=== PATIENT | male | born 2000 | race Caucasian/White ===

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

== ENCOUNTER 2021-01-24 15:31 | Emergency (ER) | payer MEDICAID, SELFPAY ==
[2021-01-24] VITALS (7 sets, daily range): BP systolic 131; BP diastolic 87; PULSE 100; RESP 15–16; TEMP 36.6; O2SAT 98; BMI 20.7
--- NOTE | 2021-01-24 15:51 | EDS_ITS ---
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 Patient is a very limited informant. He does not want to answer questions. As I asked him questions he states I prefer not to answer sure. I did speak to the deputy who brought the patient in. Reportedly family called him said the patient was making statements about particularly harming himself and/or animals. Patient not cooperative. Prior similar symptoms: No Recent Illness/Hospitalization: No PFSH PFSH Home Medications NK 07/12/18 [History Last Taken Unknown] Allergy/AdvReac Type Severity Reaction Status Date / Time No Known Allergies Allergy Verified 07/12/18 13:54 Social History Smoking Status: Never smoker ROS ROS ED ROS Narrative Limited history from the patient but he denies. Review of Systems ROS Unobtainable: Denies due to encephalopathy Constitutional Constitutional ED: Denies fever(s) Eyes Eyes: Denies change in vision ENT ENT ED: Denies ear pain or sore throat Cardiovascular Cardiovascular: Denies chest pain Respiratory/Chest Respiratory/Chest: Denies dyspnea Gastrointestinal Gastrointestinal: Denies abdominal pain Genitourinary Genitourinary ED: Denies dysuria Musculoskeletal Musculoskeletal: Denies myalgias Integumentary Denies rash Neurologic Neurologic: Denies headache(s) Psychiatric Psychiatric: Denies depression Endocrine Endocrinology: Denies polyuria Hematologic/Lymphatic Hematologic/Lymphatic: Denies easy bruising Allergic/Immunologic Allergic/Immunologic ED: Denies urticaria EXAM Physical Exam Narrative Exam Narrative: Young male no acute distress. H EENT exam unremarkable atraumatic. Neck nontender no lymphadenopathy. No trauma. Lungs clear to auscultation. Heart regular rhythm no murmur. Chest wall nontender. Abdomen soft nontender. Patient moving all 4 extremities. No deformity. No edema. Back nontender. Neurologically is awake. He has no obvious neurologic findings. He has somewhat reluctant to be examined. Is somewhat uncooperative. Const Vital Signs: 01/24/21 15:31 01/24/21 16:31 01/24/21 17:00 Temperature 97.9 F Temperature Source Temporal Respiratory Rate 15 16 Positive well nourished and well developed; Negative for obese, cachectic, contractures or unkempt General Appearance ED: well developed and NAD; Negative for unkempt, cachectic, contractures or pallor Nutritional Appearance: Negative for cachectic or obese HEENT Reports moist mucous membranes normocephalic and atraumatic; Negative for trauma or tenderness Eyes PERRL and EOMs intact bilaterally Neck no lymphadenopathy, supple and no JVD General: Negative for tenderness Resp normal respiratory effort and clear to auscultation bilaterally Auscultation: Negative for rales, rhonchi or wheezes Cardio S1 normal heart sound, S2 normal heart sound and no murmurs Rate: regular rate Rhythm: regular rhythm GI non-tender, non-distended and no masses Inspection: Negative for abdominal distention Auscultation: normoactive bowel sounds Palpation: soft; Negative for tender or guarding Back/Spine no CVA tenderness General Back: Negative for CVA tenderness Cervical Spine: Negative for cervical spine tenderness Extremity normal to inspection General Extremety ED: Negative for edema or tenderness General Extremity: Negative for edema Neuro Neuro Narrative: Limited due to the patient is not very cooperative with exam and would not answer questions but I find any obvious neurological deficits. Sensorium / Orientation: alert and oriented to person Psych mental status grossly normal, speech normal and activity/motor behavior normal; Negative for cooperative or affect normal Appearance: grossly normal, appropriate and well kempt; Negative for unkempt, disheveled, bizarre or intubated Skin General Skin Exam: Negative for jaundice or pallor Lesions: no lesions Rashes: no rashes MDM MDM MDM Narrative Medical decision making narrative: 20-year-old male reported psychiatric history not taking his medications. Currently uncooperative. Does not want to answer questions. (ED mental health work-up and evaluation. Patient is to be treated with Geodon for the nurses to draw blood. Repeat exam unchanged at 5:35 PM. smokehouse worker spoke to the patient's mother who is his power of supervisor mold construction and wants him admitted. She states has been off his medications and she is concerned about his wellbeing. Lab Data Attestation: I reviewed the patient's lab results. Lab results narrative: CBC normal white count of 5. Hemoglobin 15. Tox screen negative. Chemistries and alcohol and Covid are pending. This to be checked out to the oncoming physician. Labs: Laboratory Results - last 24 hr 01/24/21 01/24/21 16:05 17:15 WBC 5.8 RBC 5.66 Hgb 15.6 Hct 46.3 MCV 81.8 MCH 27.6 MCHC 33.7 RDW Std Deviation 38.1 RDW Coeff of Shola 12.7 Plt Count 107 L MPV 12.0 Immature Gran % (Auto) 0.300 Neut % (Auto) 82.4 H Lymph % (Auto) 10.7 L Maury % (Auto) 6.4 Eos % (Auto) 0.0 Baso % (Auto) 0.2 Absolute Neuts (auto) 4.8 Absolute Lymphs (auto) 0.62 L Nucleated RBC % 0 Urine Opiates Screen NEGATIVE Urine Methadone Screen NEGATIVE Ur Barbiturates Screen NEGATIVE Ur Phencyclidine Scrn NEGATIVE Ur Amphetamines Screen NEGATIVE U Methamphetamin-MDMA NEGATIVE U Benzodiazepines Scrn NEGATIVE Urine Cocaine Screen NEGATIVE U Cannabinoids Screen NEGATIVE Ur Drug Screen Comment Discharge Plan Triage Chief Complaint: Mental Health ED Provider: Vlad Mckeon Dx/Rx/DC Orders Clinical Impression: Schizophrenia, Medical non-compliance Prescriptions: No Action NK RF: 0 Primary Care Provider: Maverick Murray Referrals: Maverick Murray MD [Primary Care Provider] - Disposition Disposition: Psychiatric Hospital or Unit
[2021-01-24] MEDS: Ziprasidone IM 20 MG/ML VIAL IM (16:01)
--- NOTE | 2021-01-24 16:30 | CM.ED ---
SOCIAL WORK ASSESSMENT Referral Source: Dr. Mckeon Reason for Consult: Mental Health Evaluation Chief Compliant: Patient presents to [facility] ER [place] by law enforcement. Patient with history of schizophrenia, off medications, and religiously preoccupied. Patient will not answer questions. Marital/Social History: Single, mother-Rachel Sandoval is patient?s legal guardian. 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 Patient was receiving a 3-month injection up until July when he did not attend appointment per mother. Mother states patient has been refusing to see psychiatrist. Triggers/Stressors: Non-compliance with medications Coping Skills: None Abuse Issues: Patient denies emotional, physical, and sexual abuse. Substance Abuse History: Patient denies any history of substance abuse. Risk to Self/Others: Suicidal- Mother reports patient has voiced ?wanting to be with God.? Patient was asking to talk and ?see? mom today. Mother reports that she is currently out of state and will be returning tomorrow. Mother states this is not normal behavior for patient as he normally is a loner and ?stays in his room.? Patient was also trying to ?get the dogs out of the home.? Mother does not feel safe with patient returning home. Homicidal- Unknown. Per mother and aunt, patient was making comments that ?I have to be nice to the dogs.? Mental Status Exam: Orientation- A&OX3 Memory: fair Appearance/General Behavior: disheveled Mood/Affect: anxious, bizarre, flat Communication Pattern: uncooperative, does not wish to answer most questions Thought Process: paranoid, preoccupied Judgement: poor Insight: poor Assessment: Attempted to complete assessment with patient. Patient limited informant. Patient with bizarre behavior and stating, ?it?s a God thing.? Patient currently denies any suicidal or homicidal ideation. Patient asking if able to leave. Education provided on [place]. Call to patient?s mother and face to face with patient?s Aunt Debbie in office. Mother reports patient had a ?break down? and was diagnosed with schizophrenia. Mother states patient was treated with injections until July when he no showed to appointment. Patient has reported does not need medication and that ?medications are sorcery.? Aunt and mother report patient with decreased appetite. Mother is patient?s legal guardian and aunt brought in forms. Mother believes patient would benefit from stabilization and does not feel comfortable with patient returning home at this time. Mother states patient last inpatient psych hospitalization was 2 years ago. Collaboration with Dr. Mckeon. Plan for inpatient psych. This worker to facilitate placement. Plan: Referral to inpatient psych Patricia West MSW, MANAGEMENT PLANNER
[2021-01-24 16:35] LABS: Amphetamine Urine VISTA NEGATIVE (<1000 ng/mL); Barbiturate Urine VISTA NEGATIVE (< 200 ng/mL); Benzodiazepine Urine VISTA NEGATIVE (< 200 ng/mL); Cocaine Urine VISTA NEGATIVE (< 300 ng/mL); Ecstacy Urine VISTA NEGATIVE (< 500 ng/mL); Methadone Urine VISTA NEGATIVE (< 300 ng/mL); PCP Urine VISTA NEGATIVE (< 25 ng/mL); THC Urine VISTA NEGATIVE (< 50 ng/mL); Vista UDS pH Range 5
[2021-01-24 17:29] LABS: Absolute Lymphocyte Count 0.62 X10^3/uL (0.83-4.51); Absolute Neutrophil Count 4.8 X10^3/uL (2.0-7.7); Basophil# 0.01 X10^3/uL; Basophil% 0.2 % (0-1); Hematocrit 46.3 % (40-54); Hemoglobin 15.6 g/dL (13.0-16.5); Lymphocyte # 0.62 X10^3/ul (0.83-4.51); Lymphocyte % 10.7 % (19-41); Mean Corp Hgb Conc 33.7 g/dL (32-36); Mean Corpuscular Hgb 27.6 pg (27.0-32.0); Mean Corpuscular Volume 81.8 fL (80-94); Monocyte# 0.37 X10^3/uL; Monocyte% 6.4 % (0-10); NRBC Flagged by Analyzer 0 % (0-5); Neutrophil % 82.4 % (47-70); Platelet Count 107 K/mm3 (150-450); RBC Distribution Width CV 12.7 % (11.6-14.6); RBC Distribution Width SD 38.1 fl (35.1-43.9); Red Blood Count 5.66 M/mm3 (4.6-6.2); White Blood Count 5.8 K/mm3 (4.4-11.0)
[2021-01-24 17:42] LABS: Anion Gap 6 (5-15); BUN 12 mg/dL (7-18); BUN/Creat Ratio 11.5 RATIO (10-20); Calcium,Total 9.5 mg/dL (8.5-10.1); Chloride 106 mmol/L (98-107); Creatinine, Serum 1.04 mg/dL (0.70-1.30); EST Glomerular Filtration Rate 96 mL/min (>60); Est Glom Filt Rate - Afr Amer 116 mL/min (>60); Estimated Creatinine Clearance 100.92 ml/min; Glucose 118 mg/dL (74-106); Sodium Level 139 mmol/L (136-145)
--- NOTE | 2021-01-24 18:56 | CM.ED ---
SOCIAL WORK Referral called to [facility] per mother's request. They do not have bed available for patient. Discussed options with mother. Referral faxed and called to both [facility] and [place] at this time. Pending review. Patricia West, RETAIL STOCKER, RADIOLOGY CLERK
--- NOTE | 2021-01-24 20:23 | CM.ED ---
SOCIAL WORK Call from [facility]. Patient accepted by Dr. Kern to the [facility] Unit. Nurse to call report to [phone]. [place] on chart to be sent with patient. [facility] to set up transport. Patient and family updated. Plan: [facility]. Call to [facility] to update placement has been obtained for patient. Patricia obrien, MEDICAL INSURANCE COLLECTOR, FITNESS CLUB MANAGER
== END 2021-01-24 21:25 ==
PROVIDERS: Emergency Provider Emergency Medicine; PCP Nurse Practitioner Family
DX: F20.9 Schizophrenia, unspecified (principal); Z91.19 Patient's noncompliance with other medical treatment and regimen; Z20.822 Contact with and (suspected) exposure to COVID-19
CPT/HCPCS: 80048; 80307; 82077; 85025; 87426; 96372; 99285; J3486

== ENCOUNTER 2023-04-15 22:02 | Emergency (ER) | payer MEDICARE, MEDICAID, SELFPAY ==
[2023-04-15 22:02] VITALS: BP 123/87; PULSE 130; RESP 15; TEMP 37.1; O2SAT 99
--- NOTE | 2023-04-15 22:13 | EX.ED.VIS.PS ---
HPI HPI - Psych History of Present Illness Chief Complaint: Mental Health PFSH PFS Home Medications NK 07/12/18 [History Last Taken Unknown] Allergy/AdvReac Type Severity Reaction Status Date / Time No Known Allergies Allergy Verified 04/15/23 22:07 Social History Smoking Status: Never smoker EXAM Physical Exam Const Vital Signs: 04/15/23 22:02 04/15/23 23:02 04/16/23 01:02 Temperature 98.8 F Temperature Source Temporal Pulse Rate 130 H 62 Respiratory Rate 15 16 13 Blood Pressure 123/87 H 120/65 Blood Pressure Mean 99 83 Pulse Ox 99 99 Oxygen Delivery Method Room Air Room Air Room Air MDM MDM MDM Narrative Medical decision making narrative: HISTORY OF PRESENT ILLNESS: 22-year-old male history of schizophrenia presents with concern for medication noncompliance and abnormal behavior. Per the patient's caregiver patient was standing out in the cold, locked himself in his room behaving abnormally. This was concerning. The patient and caregiver further state patient has not been on medication since December. He has been on Invega and olanzapine. Per the patient's mother has been seeing and hearing things however he always denies any symptoms. There has been no report of suicidal ideation or homicidal ideation. They state has been no physical illnesses. They state the patient may need to be admitted because they do not feel safe with him at home given his history of schizophrenia, med noncompliance and concern that he may hurt himself. REVIEW OF SYSTEMS: Pertinent positives: None Pertinent negatives: SI, HI, auditory or visual hallucinations PHYSICAL EXAM: Nursing triage notes reviewed, Vital signs reviewed Constitutional: please see mdm HENT: MMM Eyes: Pupils equal round and reactive to light, Extraocular muscles intact Neck: No stridor, no JVD, full neck ROM Lungs: Clear to auscultation, No wheezing or rales. No increased work of breathing, no conversational dyspnea, no accessory muscle use, no nasal flaring. No respiratory distress noted Heart: Regular rate and rhythm, No murmurs, No rubs and No gallops, 2+ distal pulses (radial, femoral, posterior tibial) in all extremities Abdomen: Soft, there is no tenderness, rigidity, rebound or guarding, no obvious peritoneal signs, no palpable pulsatile abdominal masses, no auscultated abdominal bruit : No CVAT Extremities: No edema Neuro: No focal neurological deficits, cranial nerves II through XII intact, 5/5 strength in all extremities. Intact sensation to light touch in all extremities, 2+ reflexes bilateral patella tendons. Normal gait. No ataxia. Skin: No rash or lesions noted Psych: Normal affect, responding to internal stimuli, MEDICAL DECISION MAKING: Chief Complaint: Medication noncompliance, abnormal behavior, history of schizophrenia External records reviewed: Past ED visit reviewed: Last ED visit in December 2020 for schizophrenia and med noncompliance. Patient was admitted after this visit. Factors affecting care: schizophrenia Social determinants of health: History of mental health disorder History obtained from others: Patient's caregiver Consults: Behavioral social MDM Narrative: Patient was initially tachycardic otherwise hemodynamically stable afebrile and nontoxic-appearing. Patient had abnormal affect, responding internal stimuli, Decompensated. Patient was evaluated by behavioral social work who agreed the patient need to be placed given decompensated schizophrenia, concern for failure to thrive weight loss and danger to himself and possibly other people. Patient is awaiting placement. Signed out awaiting placement. The patient and/or family, caregivers express understanding. The patient and/or family, caregivers agrees with the plan. Shared decision making: I will have a discussion with the patient and or visitors regarding risk/benefits of further testing or admission. They will be made aware of of the risk/benefits inherent in this decision they will be given the opportunity to voice understanding. Total critical care time today provided was at least 0 minutes. This excludes separately billable procedures. Critical care time (if documented) is secondary to the patient having high probability of clinically significant/life threatening deterioration in the patient's condition which required my urgent intervention. Impression: 1. Decompensated schizophrenia 2. Abnormal behavior 3. Medication noncompliance Dispo: Likely admit to [facility] Lab Data Labs: Laboratory Results - last 24 hr 04/15/23 04/15/23 22:51 23:13 WBC 5.2 RBC 5.58 Hgb 15.5 Hct 47.7 MCV 85.5 MCH 27.8 MCHC 32.5 RDW Std Deviation 41.4 RDW Coeff of Shola 13.3 Plt Count 141 L MPV 11.4 Immature Gran % (Auto) 0.200 Neut % (Auto) 67.5 Lymph % (Auto) 21.0 [place] % (Auto) 10.5 H Eos % (Auto) 0.2 Baso % (Auto) 0.6 Absolute Neuts (auto) 3.5 Absolute Lymphs (auto) 1.08 Nucleated RBC % 0 Sodium 139 Potassium 3.5 Chloride 107 Carbon Dioxide 24.0 Anion Gap 8 BUN 9 Creatinine 0.92 Est GFR (MDRD) Af Amer 130 Est GFR (MDRD) Non-Af 108 BUN/Creatinine Ratio 9.8 L Glucose 123 H Calcium 9.5 Urine Opiates Screen NEGATIVE Urine Methadone Screen NEGATIVE Ur Barbiturates Screen NEGATIVE Ur Phencyclidine Scrn NEGATIVE Ur Amphetamines Screen NEGATIVE MDMA (Ecstasy) Screen NEGATIVE U Benzodiazepines Scrn NEGATIVE Urine Cocaine Screen NEGATIVE U Cannabinoids Screen NEGATIVE Ur Drug Screen Comment Ethyl Alcohol < 3.0 Discharge Plan Triage Chief Complaint: Mental Health ED Provider: Bassam Stanton Dx/Rx/DC Orders Prescriptions: No Action NK Primary Care Provider: Brandie Rico NP Referrals: Jerzy Child NP, [facility] [Non-Staff] -
--- NOTE | 2023-04-15 22:55 | EKG12_ITS ---
Test Reason : [facility] [place] Blood Pressure : / mmHG Vent. Rate : 089 BPM Atrial Rate : 089 BPM P-R Int : 162 ms QRS Dur : 096 ms QT Int : 350 ms P-R-T Axes : 074 086 046 degrees QTc Int : 425 ms Normal sinus rhythm with sinus arrhythmia Normal ECG Confirmed by SUAD ORANTES, CHRISTI ([id number]), story editor YANETH RODGERS ([id number]) on 04/23/2023 10:46:53 AM Referred By: JONAH Confirmed By:CHRISTI BORJAS MD
[2023-04-15 23:01] LABS: Absolute Lymphocyte Count 1.08 X10^3/uL (0.83-4.51); Absolute Neutrophil Count 3.5 X10^3/uL (2.0-7.7); Basophil# 0.03 X10^3/uL; Basophil% 0.6 % (0-1); Eosinophil# 0.01 X10^3/uL; Eosinophils% 0.2 % (0-5); Hematocrit 47.7 % (40-54); Hemoglobin 15.5 g/dL (13.0-16.5); Lymphocyte # 1.08 X10^3/ul (0.83-4.51); Mean Corp Hgb Conc 32.5 g/dL (32-36); Mean Corpuscular Hgb 27.8 pg (27.0-32.0); Mean Corpuscular Volume 85.5 fL (80-94); Mean Platelet Vol. 11.4 fl (6.2-12.0); Monocyte# 0.54 X10^3/uL; Monocyte% 10.5 % (0-10); NRBC Flagged by Analyzer 0 % (0-5); Neutrophil # 3.48 X10^3/uL (2.7-7.7); Neutrophil % 67.5 % (47-70); Platelet Count 141 K/mm3 (150-450); RBC Distribution Width CV 13.3 % (11.6-14.6); RBC Distribution Width SD 41.4 fl (35.1-43.9); Red Blood Count 5.58 M/mm3 (4.6-6.2); White Blood Count 5.2 K/mm3 (4.4-11.0)
[2023-04-15 23:02] VITALS: RESP 16
[2023-04-15 23:14] LABS: Alcohol, Blood (Medical)-Serum < 3.0 mg/dL
[2023-04-15 23:16] LABS: Anion Gap 8 (5-15); BUN 9 mg/dL (7-18); BUN/Creat Ratio 9.8 RATIO (10-20); Calcium,Total 9.5 mg/dL (8.5-10.1); Chloride 107 mmol/L (98-107); Creatinine, Serum 0.92 mg/dL (0.70-1.30); EST Glomerular Filtration Rate 108 mL/min (>60); Est Glom Filt Rate - Afr Amer 130 mL/min (>60); Glucose 123 mg/dL (74-106); Potassium 3.5 mmol/L (3.5-5.1); Sodium Level 139 mmol/L (136-145)
[2023-04-15 23:44] LABS: Amphetamine Urine VISTA NEGATIVE (<1000 ng/mL); Barbiturate Urine VISTA NEGATIVE (< 200 ng/mL); Benzodiazepine Urine VISTA NEGATIVE (< 200 ng/mL); Cocaine Urine VISTA NEGATIVE (< 300 ng/mL); Ecstacy Urine VISTA NEGATIVE (< 500 ng/mL); Methadone Urine VISTA NEGATIVE (< 300 ng/mL); PCP Urine VISTA NEGATIVE (< 25 ng/mL); THC Urine VISTA NEGATIVE (< 50 ng/mL); Vista UDS pH Range 4
[2023-04-16 01:02] VITALS: BP 120/65; PULSE 62; RESP 13; O2SAT 99
--- NOTE | 2023-04-16 06:51 | ED.RN ---
PT ACCEPTED BY DR.OKAN TAPIA [place] [id number] [id number] [phone]
[2023-04-16 08:30] VITALS: BP 114/76; PULSE 81; RESP 14; O2SAT 99; BMI 23.6
== END 2023-04-16 09:16 ==
PROVIDERS: Emergency Provider Emergency Medicine; PCP Internal Medicine; Visit Provider Emergency Medicine
DX: F20.9 Schizophrenia, unspecified (principal); Z91.148 Patient's other noncompliance with medication regimen for other reason; Z79.899 Other long term (current) drug therapy
CPT/HCPCS: 80048; 80307; 82077; 85025; 93005; 99284

== ENCOUNTER 2023-07-12 16:49 | Emergency (ER) | payer MEDICARE, MEDICAID, SELFPAY ==
[2023-07-12 16:50] VITALS: BP 121/82; PULSE 82; RESP 14; TEMP 36.8; O2SAT 99; BMI 21.8
--- OUTSIDE RECORDS SUMMARY | 2023-07-12 17:47 | XMS RPT_ITS | CCD ---
Author Name Unknown Address [address] [place] [address] Organization [facility] Care Team Providers Care Film Casting Operator Name Role Phone Maverick Murray Primary Care Provider [phone] Christi Perez Admitting Unavailable Christi Perez Attending Unavailable PROVIDER, UNKNOWN Referring Unavailable No, PCP Primary Care Unavailable Lucisu Ponce . Attending Unavailable IZZY ARAMBULA Attending Unavailable IZZY ARAMBULA Primary Care Unavailable IZZY ARAMBULA Admitting Unavailable IZZY ARAMBULA Attending Unavailable IZZY ARAMBULA Primary Care Unavailable IZZY ARAMBULA Admitting Unavailable Conrad García MD Primary Care Provider [id number] [phone] THERESA DAY Attending Unavailab CONRAD Penaloza Primary Care Unavailable CHARY STEPHENSON Consulting UnavailCONRAD Sanderson Primary Care Unavailable GEHLOT, UPENDER Consulting Unavailable GEHLOT, UPENDER Admitting Unavailable OLGAOTJACKIEENDER Attending Unavailable CHRISTI PEREZ Admitting Unavailable CHRISTI PEREZ Attending Unavailable CONRAD GARCÍA Primary Care Unavailable TIFFANY DUBON Consulting Unavailable David Sears MD Primary Care Provider Conrad García MD Primary Care Provider [id number] [phone] David Sears MD Primary Care Provider Conrad García MD Primary Care Provider [id number] [phone] Unavailable Primary Care Provider UnavailCONRAD Sanderson Primary Care Unavailable CHRISTI PEREZ Attending Unavailable CONRAD GARCÍA Primary Care Unavailable CHRISTI PEREZ Attending Unavailable MAGALY ZAMAN Attending Unavailab CONRAD Penaloza Primary Care Unavailable CHRISTI PEREZ Attending Unavailable CONRAD GARCÍA Primary Care Unavailable CHRISTI PEREZ Attending Unavailable CONRAD GARCÍA Primary Care Unavailable KAITY COTTON Attending Unavailable RAKAN MCCARTY Primary Care Unavailable Allergies Allergy Classification Reported Allergen(s) Allergy Type Date of Onset Reaction(s) Facility (4 sources) Acetaminophen; Translations: [ACETAMINOPHEN] Drug Allergy [address] [facility] (7 sources) Seasonal allergy; Translations: [SEASONAL ALLERGIES] Propensity to adverse reactions 9 [facility] Work Phone: Medications Current Medications Medication Drug Class(es) Dates Sig (Normalized) Sig (Original) OLANZapine 10 mg oral tablet (20 sources) Atypical Antipsychotic Start: 05-19-2023 End: 07-10-2023 take 1 tablet by mouth once daily OLANZapine (ZYPREXA) 10 MG tablet Indications: Paranoid schizophrenia (HCC) Take 1 (one) tablet (10 mg total) by mouth nightly . 30 tablet 2 07/10/2023 Active Completed/Discontinued Medications Medication Drug Class(es) Dates Sig (Normalized) Sig (Original) aluminum hydroxide 40 mg/ml / magnesium hydroxide 40 mg/ml / simethicone 4 mg/ml oral suspension (1 source) Start: 07-31-2021 End: 08-14-2021 take 30 mL by mouth every four hours as needed aluminum-magnesium hydroxide-simethico ne (MAALOX PLUS) 200-200-20 mg/5 mL suspension 30 mL 2 ml benztropine mesylate 1 mg/ml injection (1 source) Anticholinergic, Antihistamine Start: 07-31-2021 End: 08-14-2021 inject 2 mg by intramuscular injection every twenty-four hours as needed benztropine (COGENTIN) injection 2 mg diphenhydrAMINE (2 sources) Histamine-1 Receptor Antagonist Start: 08-01-2021 End: 08-01-2021 diphenhydrAMINE (BENADRYL) injection 50 mg Problems Active Problems Problem Classification Problem Date Documented Date Episodic/Chronic Administrative/social admission (4 sources) Patient encounter status; Translations: [Persons encountering health services in other specified circumstances] Episodic Anxiety disorders (1 source) Anxiety disorder; Translations: [Anxiety disorder, unspecified] Chronic Coagulation and hemorrhagic disorders (7 sources) Platelet count below reference range; Translations: [Thrombocytopenia, unspecified] 01-04-2019 Chronic Disorders usually diagnosed in infancy, childhood, or adolescence (7 sources) Attention deficit hyperactivity disorder, predominantly inattentive type; Translations: [Other specified behavioral and emotional disorders with onset usually occurring in childhood and adolescence] Onset: 02-27-2010 02-27-2010 Chronic Immunizations and screening for infectious disease (7 sources) Encounter for observation for suspected exposure to other biological agents ruled out; Translations: [Contact with and (suspected) exposure to other viral communicable diseases] Onset: 03-24-2020 Episodic Mood disorders (7 sources) Depressive disorder; Translations: [Depression] Onset: 01-21-2017 01-21-2017 Chronic Other nervous system disorders (1 source) Other disturbances of smell and taste; Translations: [Other disturbances of smell and taste] Onset: 04-12-2020 Episodic Schizophrenia and other psychotic disorders (20 sources) Schizophrenia in remission; 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] Onset: 08-12-2018 08-12-2018 Chronic Unclassified (1 source) COVID-19; Translations: [COVID-19] Onset: 03-24-2020 Unclassified (2 sources) Medication Management Onset: 10-25-2022 Past or Other Problems Problem Classification Problem Date Documented Da te Episodic/Chronic Residual codes; unclassified (6 sources) Influenza vaccination declined; Translations: [Immunization not carried out because of patient refusal] Onset: 06-10-2017 06-10-2017 Episodic Results Test Name Value Interpretation Reference Range Facil ity Vital Signs Date Time Vital Sign Value Performing Clinician Faci lity 01-30-2023 12:52-0400 Body height 177.8 cm Christi Perez MD Work Phone: [facility] 01-30-2023 12:52-0400 Body mass index (BMI) [Ratio] 21.24 kg/m2 Christi Perez MD Work Phone: [facility] 01-30-2023 12:52-0400 Body weight 67.13 kg Christi Perez MD Work Phone: [facility] 01-30-2023 12:52-0400 Diastolic blood pressure 89 mm[Hg] Christi Perez MD Work Phone: [facility] 01-30-2023 12:52-0400 Heart rate 101 /min Christi Perez MD Work Phone: [facility] 01-30-2023 12:52-0400 Respiratory rate 16 /min Christi Perez MD Work Phone: [facility] 01-30-2023 12:52-0400 SaO2% (BldA) [Mass fraction] 94 % Christi Perez MD Work Phone: [facility] 01-30-2023 12:52-0400 Systolic blood pressure 143 mm[Hg] Christi Perez MD Work Phone: [facility] 06-17-2022 07:39-0500 Body height 176.5 cm Kaity Jacky SENIOR MANAGER ASSET PROTECTION.REFRIGERATING TECHNICIAN Work Phone: [facility] 06-17-2022 07:39-0500 Body weight 70.31 kg Kaity Jacky SENIOR MANAGER ASSET PROTECTION.REFRIGERATING TECHNICIAN Work Phone: [facility] 06-17-2022 07:39-0500 Diastolic blood pressure 54 mm[Hg] Kaity Jacky SENIOR MANAGER ASSET PROTECTION.REFRIGERATING TECHNICIAN Work Phone: [facility] 06-17-2022 07:39-0500 Heart rate 88 /min Kaity Jacky SENIOR MANAGER ASSET PROTECTION.REFRIGERATING TECHNICIAN Work Phone: [facility] 06-17-2022 07:39-0500 SaO2% (BldA) [Mass fraction] 98 % Kaity Jacky SENIOR MANAGER ASSET PROTECTION.REFRIGERATING TECHNICIAN Work Phone: [facility] 06-17-2022 07:39-0500 Systolic blood pressure 110 mm[Hg] Kaity Jacky SENIOR MANAGER ASSET PROTECTION.REFRIGERATING TECHNICIAN Work Phone: [facility] 05-02-2022 15:00-0500 Body height 177.8 cm Christi Perez MD Work Phone: [facility] 05-02-2022 15:00-0500 Body mass index (BMI) [Ratio] 22.81 kg/m2 Christi Perez MD Work Phone: [facility] 05-02-2022 15:00-0500 Body weight 72.12 kg Christi Perez MD Work Phone: [facility] 05-02-2022 15:00-0500 Diastolic blood pressure 81 mm[Hg] Christi Perez MD Work Phone: [facility] 05-02-2022 15:00-0500 Heart rate 101 /min Christi Perez MD Work Phone: [facility] 05-02-2022 15:00-0500 Respiratory rate 16 /min Christi Perez MD Work Phone: [facility] 05-02-2022 15:00-0500 SaO2% (BldA) [Mass fraction] 96 % Christi Perez MD Work Phone: [facility] 05-02-2022 15:00-0500 Systolic blood pressure 119 mm[Hg] Christi Perez MD Work Phone: [facility] 10-31-2021 15:07-0400 Body height 177.8 cm Christi Perez MD Work Phone: [facility] 10-31-2021 15:07-0400 Body mass index (BMI) [Ratio] 22.81 kg/m2 Christi Perez MD Work Phone: [facility] 10-31-2021 15:07-0400 Body weight 72.12 kg Christi Perez MD Work Phone: [facility] 10-31-2021 15:07-0400 Diastolic blood pressure 73 mm[Hg] Christi Perez MD Work Phone: [facility] 10-31-2021 15:07-0400 Heart rate 97 /min Christi Perez MD Work Phone: [facility] 10-31-2021 15:07-0400 Respiratory rate 16 /min Christi Perez MD Work Phone: [facility] 10-31-2021 15:07-0400 SaO2% (BldA) [Mass fraction] 94 % Christi Perez MD Work Phone: [facility] 10-31-2021 15:07-0400 Systolic blood pressure 114 mm[Hg] Christi Perez MD Work Phone: [facility] 08-14-2021 08:07-0400 Body temperature 97.5 [degF] Christi Perez MD Work Phone: [facility] 08-14-2021 08:07-0400 Diastolic blood pressure 76 mm[Hg] Christi Perez MD Work Phone: [facility] 08-14-2021 08:07-0400 Heart rate 87 /min Christi Perez MD Work Phone: [facility] 08-14-2021 08:07-0400 Respiratory rate 16 /min Christi Perez MD Work Phone: [facility] 08-14-2021 08:07-0400 SaO2% (BldA) [Mass fraction] 98 % Christi Perez MD Work Phone: [facility] 08-14-2021 08:07-0400 Systolic blood pressure 111 mm[Hg] Christi Perez MD Work Phone: [facility] 07-31-2021 18:23-0500 Body height 177.8 cm Christi Perez MD Work Phone: [facility] 07-31-2021 18:23-0500 Body mass index (BMI) [Ratio] 22.9 kg/m2 Christi Perez MD Work Phone: [facility] 07-31-2021 18:23-0500 Body weight 72.4 kg Christi Perez MD Work Phone: [facility] 07-11-2021 14:55-0500 Diastolic blood pressure 83 mm[Hg] Christi Perez MD Work Phone: [facility] 07-11-2021 14:55-0500 Heart rate 111 /min Christi Perez MD Work Phone: [facility] 07-11-2021 14:55-0500 Respiratory rate 16 /min Christi Perez MD Work Phone: [facility] 07-11-2021 14:55-0500 SaO2% (BldA) [Mass fraction] 8 % Christi Perez MD Work Phone: [facility] 07-11-2021 14:55-0500 Systolic blood pressure 134 mm[Hg] Christi Perez MD Work Phone: [facility] 05-03-2021 16:02-0500 Body height 175.3 cm Christi Perez MD Work Phone: [facility] 05-03-2021 16:02-0500 Body mass index (BMI) [Ratio] 19.64 kg/m2 Christi Perez MD Work Phone: [facility] 05-03-2021 16:02-0500 Body weight 60.33 kg Christi Perez MD Work Phone: [facility] 05-03-2021 16:02-0500 Diastolic blood pressure 86 mm[Hg] Christi Perez MD Work Phone: [facility] 05-03-2021 16:02-0500 Heart rate 112 /min Christi Perez MD Work Phone: [facility] 05-03-2021 16:02-0500 Respiratory rate 16 /min Christi Perez MD Work Phone: [facility] 05-03-2021 16:02-0500 SaO2% (BldA) [Mass fraction] 98 % Christi Perez MD Work Phone: [facility] 05-03-2021 16:02-0500 Systolic blood pressure 135 mm[Hg] Christi Perez MD Work Phone: [facility] 02-21-2021 14:20-0400 Body height 175.3 cm Christi Perez MD Work Phone: [facility] 02-21-2021 14:20-0400 Body mass index (BMI) [Ratio] 19.64 kg/m2 Christi Perez MD Work Phone: [facility] 02-21-2021 14:20-0400 Body weight 60.33 kg Christi Perez MD Work Phone: [facility] 02-21-2021 14:20-0400 Diastolic blood pressure 76 mm[Hg] Christi Perez MD Work Phone: [facility] 02-21-2021 14:20-0400 Heart rate 85 /min Christi Perez MD Work Phone: [facility] 02-21-2021 14:20-0400 Respiratory rate 16 /min Christi Perez MD Work Phone: [facility] 02-21-2021 14:20-0400 SaO2% (BldA) [Mass fraction] 98 % Christi Perez MD Work Phone: [facility] 02-21-2021 14:20-0400 Systolic blood pressure 117 mm[Hg] Christi Perez MD Work Phone: [facility] 08-12-2018 13:08-0400 BMI (Body Mass Index) 19.37 kg/m2 Christi Perez [facility] 08-12-2018 13:08-0400 Body Temperature 98.8 [degF] Christi Perez [facility] 08-12-2018 13:08-0400 BP Diastolic 86 mm[Hg] Christi Perez [facility] 08-12-2018 13:08-0400 BP Systolic 130 mm[Hg] Christi Perez [facility] 08-12-2018 13:08-0400 Height 177.[address] [facility] 08-12-2018 13:08-0400 Pulse (Heart Rate) 87 /min Christi Perez [facility] 08-12-2018 13:08-0400 Respiratory Rate 16 /min Christi Perez [facility] 08-12-2018 13:08-0400 Weight 61.[address] [facility] Encounters Encounter Date Encounter Type Care Provider Facility Start: 07-10-2023 End: 07-10-2023 Office outpatient visit 25 minutes Magaly Zaman CNP Work Phone: [facility] Procedures Date Procedure Procedure Detail Performing Clinician Start: 05-19-2023 Adult depression screening assessment Magaly Zaman CNP Work Phone: Start: 07-31-2021 Adult depression screening assessment Perlita Fernandez MA Start: 02-02-2021 Adult depression screening assessment Christi Perez MD Work Phone: Start: 01-04-2019 Adult depression screening assessment Mi Nurse Work Phone: Plan of Treatment Date Care Activity Detail Author Start: 05-19-2024 Depression screening using PHQ-9 (Patient Health Questionnaire 9) score Depression Screening (PHQ-2/9) [facility] Start: 10-08-2023 End: 10-08-2023 Patient encounter procedure 10/08/2023 1:30 PM EDT Office Visit [facility] [address] [place] [address] Magaly Zaman, ROSA [address] [place] [address] [facility] Start: 09-17-2023 End: 09-17-2023 Patient encounter procedure 09/17/2023 3:00 PM EDT Office Visit [facility] [address] [place] [address] Christi Perez MD [id number] [facility] Start: 04-14-2023 End: 04-14-2023 Patient encounter procedure 04/14/2023 1:00 PM EST Office Visit [facility] [address] [place] [address] Christi Perez MD [address] [address] [facility] Start: 01-31-2023 Influenza vaccination Sequential Influenza Vaccine (#1) [facility] Start: 11-29-2022 Influenza vaccination INFLUENZA (#1) [facility] Immunizations Immunization Date Immunization Notes Care Provider Fa cili 12-27-2015 meningococcal polysaccharide (groups A, C, Y and W-135) diphtheria toxoid conjugate vaccine (MCV4P) Ma Nurse Work Phone: [facility] Work Phone: 01-18-2014 human papilloma viru s vaccine, quadrivalent Mi Nurse Work Phone: [facility] 07-26-2013 hepatitis A vaccine, unspecified formulation Mi Nurse Work Phone: [facility] Work Phone: 07-26-2013 human papilloma viru s vaccine, quadrivalent Mi Nurse Work Phone: [facility] Work Phone: 01-02-2013 human papilloma viru s vaccine, quadrivalent Mi Nurse Work Phone: [facility] Work Phone: 08-15-2012 hepatitis A vaccine, unspecified formulation Ma Nurse Work Phone: [facility] 06-16-2012 influenza virus vacc ine, live, attenuated, for intranasal use Mi Nurse Work Phone: [facility] 05-08-2011 influenza virus vacc ine, live, attenuated, for intranasal use Mi Nurse Work Phone: [facility] 05-08-2011 varicella virus vaccine Mi N urse Work Phone: [facility] 10-26-2010 Meningococcal, MCV4, unspecified conjugate formulation(groups A, C, Y and W-135) Ma Nurse Work Phone: [facility] Work Phone: 10-26-2010 tetanus toxoid, redu bashir diphtheria toxoid, and acellular pertussis vaccine, adsorbed Mi Nurse Work Phone: [facility] Work Phone: 08-31-2004 diphtheria, tetanus toxoids and acellular pertussis vaccine Mi Nurse Work Phone: [facility] Work Phone: 08-31-2004 measles, mumps and rubella virus vaccine Ma Nurse Work Phone: [facility] Work Phone: 08-31-2004 poliovirus vaccine, inactivated Mi Nurse Work Phone: [facility] Work Phone: 03-02-2001 diphtheria, tetanus toxoids and acellular pertussis vaccine Ma Nurse Work Phone: [facility] Work Phone: 03-02-2001 haemophilus influenz ae type b conjugate and Hepatitis B vaccine Kaity Cotton SENIOR MANAGER ASSET PROTECTION.REFRIGERATING TECHNICIAN Work Phone: [facility] Work Phone: 03-02-2001 haemophilus influenz ae type b vaccine, HbOC conjugate Ma Nurse Work Phone: [facility] Work Phone: 03-02-2001 hepatitis B vaccine, pediatric or pediatric/adolescent dosage Ma Nurse Work Phone: [facility] Work Phone: 01-19-2001 measles, mumps and rubella virus vaccine Ma Nurse Work Phone: [facility] Work Phone: 01-19-2001 varicella virus vaccine Ma N shebae Work Phone: [facility] Work Phone: 06-13-2000 diphtheria, tetanus toxoids and acellular pertussis vaccine Ma Nurse Work Phone: [facility] Work Phone: 06-13-2000 poliovirus vaccine, inactivated Ma Nurse Work Phone: [facility] Work Phone: 02-27-2000 diphtheria, tetanus toxoids and acellular pertussis vaccine Ma Nurse Work Phone: [facility] Work Phone: 02-27-2000 haemophilus influenz ae type b conjugate and Hepatitis B vaccine Kaity Cotton SENIOR MANAGER ASSET PROTECTION.REFRIGERATING TECHNICIAN Work Phone: [facility] Work Phone: 02-27-2000 haemophilus influenz ae type b vaccine, HbOC conjugate Ma Nurse Work Phone: [facility] Work Phone: 02-27-2000 hepatitis B vaccine, pediatric or pediatric/adolescent dosage Mi Nurse Work Phone: [facility] Work Phone: 02-27-2000 poliovirus vaccine, inactivated Ma Nurse Work Phone: [facility] Work Phone: 1999 diphtheria, tetanus toxoids and acellular pertussis vaccine Mi Nurse Work Phone: [facility] Work Phone: 1999 haemophilus influenz ae type b conjugate and Hepatitis B vaccine Kaity Cotton SENIOR MANAGER ASSET PROTECTION.REFRIGERATING TECHNICIAN Work Phone: [facility] Work Phone: 1999 haemophilus influenz ae type b vaccine, HbOC conjugate Ma Nurse Work Phone: [facility] Work Phone: 1999 hepatitis B vaccine, pediatric or pediatric/adolescent dosage Ma Nurse Work Phone: [facility] Work Phone: 1999 poliovirus vaccine, inactivated Mi Nurse Work Phone: [facility] Work Phone: Payers Date Payer Category Payer Medicare MEDICARE MEDICAR E PART A & B [id number] 2022-Present [phone] [employer] [id number] PART A CLAIMS [address] [address] [place] [address] [id number] 2022 Medicare [id number] 2022 Medicaid [id number] 2020 Medicaid [id number] 2018 Medicaid [id number] 2018 Medicaid [id number] 2018 Unknown [employer] [place] [employer] PREFERRED xxxxxxxxx 2018-Present xxxxxxxxx [id number] 1999 Unknown [id number] 668 1999 Unknown [id number] 651 1999 Unknown [id number] 651 1999 Unknown [id number] 900 1999 Unknown [id number] [id number] 903 1999 Unknown [id number] [id number] 903 1999 Unknown [id number] 903 1999 Unknown [id number] 903 1999 Unknown [id number]. 903 1999 Unknown [id number] [id number] 903 1999 Unknown [id number] 903 Private Health Insurance Unknown [id number] Unknown Unknown [id number] Social History Date Type Detail Facility Start: 08-12-2018 End: 10-25-2022 Tobacco smoking status NHIS Never smoker [facility] Start: 08-12-2018 End: 06-11-2022 History SDOH Alcohol Frequency 1 [facility] Start: 2000 Sex Assigned At Not on file [facility] Start: 08-12-2018 End: 05-26-2023 Tobacco use and exposure Smokeless tobacco non-user [facility] Start: 02-21-2021 End: 07-11-2023 Alcohol intake Lifetime non-drinker (finding) [facility] Start: 07-20-2021 End: 05-02-2022 Exposure to SARS-CoV-2 (event) Not sure [facility] Start: 08-12-2018 End: 05-19-2023 Cigarette pack-years [facility] Start: 06-11-2022 History SDOH Alcohol Std Drinks 0 [facility] Start: 06-11-2022 History SDOH Housing Unable to Pay 3 [facility] Start: 08-12-2018 End: 05-19-2023 Alcohol Use Disorder Identification Test - Consumption [AUDIT-C] [facility] Start: 07-31-2021 Frequency of Alcohol Consumption Never [facility] Start: 08-21-2018 Gender identity Identifies as male gender (finding) [facility] Start: 07-31-2021 Sexual orientation Heterosexual (fin ding) [facility] Clinical Notes 02-16-2021 to 07-11-2023 Magaly Zaman, [facility] - 07/11/2023 9:03 AM Christi Lacy MD - 01/30/2023 2:51 PM Nahun Perez MD - 07/26/2022 4:24 PM Frankie Cotton APRN.[facility] - 06/17/2022 7:41 AM EST Santana Date & Type Note Facility 07-11-2023 History of Present illness Narrative [facility] Outpatient Progress Note Patient Name: Leon Atkinson MR #: [id number] : 2000 Chief Complaint: Medication and symptom review/management Interval History: 07/11/2023 Patient presents for follow up exam. I discussed risks, benefits and alternatives of a telephone visit telemedicine consultation with the patient (and any accompanying persons) including the risks that the patient's personal health details and medical records will be discussed over real-time, synchronous, interactive audio technology, the visit will not be recorded without the express consent of both the provider and the patient, and that there are inherent diagnostic limitations compared to [id number] evaluations. We elected to proceed with the telephone visit telemedicine consultation. Patient is engaged and cooperative during conversation. Mother also present for the visit today. States he is tolerating the medication well. Mother states that he has been stable but he does continue to question reality often. Patient states that he is just curious about things and asks her. Mother states that he didn't want to attend the family vacation this year because the outer negron was demonic. Patient states he didn't say this. He chooses not to go on the trip as he doesn't think it would be that fun for him and he wouldn't be able to read his Bible daily. He would like to stay with his uncle while his family is gone. Patient denies any hallucination/delusions. He denies any notable side effects of the medication. Mother agrees with this, and states the medication is better for him, and he is no longer zombie like or overly fatigued. He is now more alert and active, but questioning more which is challenging at times. Denies any ongoing drug or alcohol abuse. Previous Visit: 05/19/[address] Perez's presents with his mother for follow up exam. He was recently admitted to [facility] from 04/16/23-05/09/2023. Seen by Dr. Kehinde Foster. Mother states he is doing well since his discharge to home. She states he is tolerating the medication well and was restarted on monthly Invega injections. He had second dose this am. 234 mg Invega Sustena. He is also taking olanzapine 10 mg once daily versus 5 mg BID. Symptoms are stable and have not worsened. Mother denies any recent mood changes or fluctuations. He denies any delusions or paranoia. He is now able to be with the family more and being more social. Sleeping well at this time. Appetite has improved. Mother is pleased with how well he is doing. States he cut his hair which was very matted from not poor ADL's. Denies any side effects of the medication. Current Medications: Outpatient Medications Prior to Visit Medication Sig Dispense Refill paliperidone palmitate (Invega Sustenna) 234 mg/1.5 mL Syrg Inject 1.5 mL (234 mg total) into the shoulder, thigh, or buttocks every 28 days . 1.5 mL 1 OLANZapine (ZYPREXA) 10 MG tablet Take 1 (one) tablet (10 mg total) by mouth nightly . 30 tablet 2 paliperidone palm, 3-month, (Invega Trinza) 546 mg/1.75 mL Syrg Inject 1.75 mL (546 mg total) into the shoulder, thigh, or buttocks every 3 (three) months . (Patient not taking: Reported on 05/19/2023 .) 1.75 mL 2 No facility-administered medications prior to visit. Psychiatric ROS: Negative unless noted above. Physical Exam: General: Alert and oriented to person, place, and time. Is in no acute distress. Well developed, hydrated, and nourished. Appears stated age. Skin: Appropriate color for ethnicity. Head: The head is normocephalic and atraumatic. Eyes: PERRLA Neck: Supple Respiratory: Respirations are non labored. Musculoskeletal: Active ROM in all four extremities. Mental Status Evaluation: General Appearance & Behavior: age appropiate and defensive Grooming & Hygiene: street clothes Psychomotor Activity: no psychomotor abnormalities or muscle atrophy noted Speech: normal rate, rhythym, volume, and spontaneity Thought Associations: Intact Content of Thought: religiously preoccupied Mood: okay Affect: flat Insight: poor Judgment: poor Memory: intact recent and remote Language: fluent Assessment and Plan/Recommendations Diagnoses/Treatment Plan: Diagnoses and all orders for this visit: Paranoid schizophrenia (HCC) - paliperidone palm, 3 month, (Invega Trinza) 546 mg/1.75 mL Syrg; Inject 1.75 mL (546 mg total) into the shoulder, thigh, or buttocks every 3 (three) months . - OLANZapine (ZYPREXA) 10 MG tablet; Take 1 (one) tablet (10 mg total) by mouth nightly . Will start Trinza in July. Mother in agreement that he will resume appointments with Dr. Perez as he was previously, due to severity of patient symptoms. Pharmacological management: Alternative medication plans were discussed with the patient/guardian. All side effects or potential adverse effects were discussed with the patient/guardian. Parent/guardian consented to medication initiation or continuation of the following: Education: Continue medication as prescribed. Please report any side effects or intolerability of the medication. Report any new or worsening symptoms 05/19/2023 9:00 AM ROD-7 ROD-7 Score 0 07/31/2021 6:29 PM 05/19/2023 9:00 AM PHQ-9 PHQ-9 Total Score 4 0 Follow up in: 09/17/2023 Treatment options and alternatives reviewed with patient. Risks, benefits, side effects of all psychiatric medications discussed with patient and informed consent obtained. All questions were answered. Magaly Zaman CNP 07/11/2023 9:17 AM documented in this encounter [facility] 06-18-2023 Note HNO ID: [id number] Author: KAITY COTTON APRN.ROSA Service: ? Author Type: Nurse Practitioner Type: Progress Notes Filed: 06/18/2023 11:39 Note Text: CHIEF COMPLAINT: Patient presents with: Physical HISTORY: Leon Atkinson is a 22 year old male who presents 06/18/2023 for his Yearly Physical Exam. They are here today for a wellness exam. Accompanied by his mother. Routine wellness, last well visit 06/17/2022. History significant for ADD, depression, schizophrenia, thrombocytopenia. Seeing Dr. Perez/Marlene with [facility] psychiatry. Hospital in April, had stopped medications for a time. Other Providers: Psychiatry. Depression Screen Q1: Over the past two weeks, have you felt down, depressed or hopeless? No Q2: Over the past two weeks, have you felt little interest or pleasure in doing things? No Home status: Lives at home with mom Current job: Looking for a job Current exercise habits: Regular exercise Dietary habits: Tries to eat healthy, protein, weight has been stable Hearing difficulties: no Tobacco: no ETOH: no Family History Cancer Colon: Grandpa on Dads side Prostate: no Past Medical History: PAST MEDICAL HISTORY Diagnosis Date ADD (attention deficit disorder) Depressed mood 05/07/2016 Depression 01/21/2017 Febrile seizure (HCC) age 5 Hyperlipidemia Schizophrenia (HCC) Dr. Hernandez Thrombocytopenia (HCC) Family Medical History: FAMILY HISTORY Problem Relation Age of Onset Hypertension Mother No Known Problems Sister Diabetes Maternal Grandmother Hypertension Maternal Grandmother Heart Maternal Grandmother Hypertension Maternal Grandfather Diabetes Maternal Grandfather Cancer Paternal Grandfather GI Colon Cancer Paternal Grandfather Social History: Social History Tobacco Use Smoking status: Never Smokeless tobacco: Never Substance Use Topics Alcohol use: Never Drug use: Never Allergies: ALLERGIES Allergen Reactions Seasonal Allergies Medications: Current Outpatient Medications Medication Sig paliperidone palmitate (INVEGA SUSTENNA) 234 mg/1.5 mL syrg injection Inject 234 mg intramuscularly. OLANZapine orally disintegrating (ZYPREXA ZYDIS) 5 mg disintegrating tablet Take 10 mg by mouth daily at bedtime. No current facility-administered medications for this visit. Chronic Problem List: ACTIVE PROBLEM LIST Thrombocytopenia (Hcc) Paranoid Schizophrenia (Hcc) Comment: Dr. Hernandez Influenza Vaccine Refused - 06/10/2017 Depression - 01/21/2017 Add (Attention Deficit Disorder) - 02/27/2010 Review of Systems Review of Systems Constitutional: Negative. Respiratory: Negative. Cardiovascular: Negative. OBJECTIVE BP 120/54 Pulse 101 Ht 5' 9.25 (1.76m) Wt 156 lb (70.8kg) SpO2 98% BMI 22.87 kg/(m2). Physical Exam Vitals and nursing note reviewed. Constitutional: General: He is awake. He is not in acute distress. Appearance: Normal appearance. He is well-developed and well-groomed. He is not ill-appearing, toxic-appearing or diaphoretic. HENT: Head: Normocephalic. Right Ear: External ear normal. Left Ear: External ear normal. Nose: Nose normal. Eyes: General: Vision grossly intact. Conjunctiva/sclera: Conjunctivae normal. Pupils: Pupils are equal, round, and reactive to light. Neck: Vascular: No JVD. Trachea: Trachea normal. Cardiovascular: Rate and Rhythm: Normal rate and regular rhythm. Pulses: Normal pulses. Heart sounds: Normal heart sounds. No murmur heard. Pulmonary: Effort: Pulmonary effort is normal. No accessory muscle usage, prolonged expiration or respiratory distress. Breath sounds: Normal breath sounds. Musculoskeletal: Cervical back: Neck supple. Skin: General: Skin is warm and dry. Capillary Refill: Capillary refill takes less than 2 seconds. Neurological: General: No focal deficit present. Mental Status: He is alert and oriented to person, place, and time. Mental status is at baseline. Psychiatric: Attention and Perception: Attention and perception normal. Mood and Affect: Mood normal. Affect is flat. Speech: Speech normal. Behavior: Behavior is withdrawn. Behavior is cooperative. Thought Content: Thought content normal. Cognition and Memory: Cognition and memory normal. Judgment: Judgment normal. ASSESSMENT/PLAN: 1. Wellness examination - ICD9: V70.0, ICD10: Z00.00 (primary diagnosis) - Counseled on healthy diet and regular exercise - Depression screening tool completed and reviewed with patient. Based on score and interview, patient is already diagnosed with depression and recommended continuing current plan of care. - Follow up for annual exam in one year 2. Paranoid schizophrenia (HCC) - ICD9: 295.30, ICD10: F20.0 Following with psychiatry. 3. Thrombocytopenia (HCC) - ICD9: 287.5, ICD10: D69.6 Update CBC 4. Attention deficit disorder, unspecified hyperactivity presence - ICD9: 314. (more content not included)... [facility] 01-30-2023 History of Present illness Narrative BEHAVIORAL HEALTH PSYCHIATRIC PROGRESS NOTE 01/30/2023 Leon Atkinson, a 22 y.o. male, for follow-up visit for schizophrenia. Patient is referred by Conrad García MD . Interval History: Leon has just this week decided that pharmaceuticals are sorcery, according to the Bible, and that he will be in sin and tormented by demons if he takes his medications. He has stopped the oral olanzapine. Next Trinza injection is due next Friday. Mom and I both sternly warned him that he was putting himself in danger of deterioration, at the very least. We reminded him of what happened last time he stopped medications. He remains adamant. He denies intent to harm himself or anyone else. Mom is guardian. PFSH: Past Medical History: Diagnosis Date ADHD Depression Schizophrenia (HCC) Schizophrenia, first episode, currently in partial remission (HCC) 08/12/2018 Social History Substance and Sexual Activity Alcohol Use Never Social History Substance and Sexual Activity Drug Use Never Social History Substance and Sexual Activity Sexual Activity Not Currently Partners: Male Family History Problem Relation Age of Onset Personality disorder Father Diabetes Maternal Grandmother The following portions of the patient's history were reviewed and updated as appropriate: allergies, current medications, past family history, past medical history, past social history, past surgical history, and problem list. Review of Systems All other systems reviewed and are negative. Physical Exam PSYCHIATRIC EXAM: Grooming & Hygiene: disheveled and appears older than stated age General Behavior: defensive Psychomotor Activity: no psychomotor abnormalities Speech: WNL Flow to Thought: concrete Thought Associations: Intact Content of Thought: delusions of persecutory, grandiose, and mu-ism Mood: I don't know Affect: flat Insight: poor Judgment: poor Orientation: alert and oriented to person, place, time Memory: Recent intact Attention: intact Concentration: intact Language: intact Fund of Knowledge: intact Labs/ Diagnostic Imaging reviewed: no new data Response to Medication: Poor not taking ASSESSMENT AND PLAN: A: Schizophrenia with break-through delusions causing non-compliance with medications P: Hospitalize when necessary Follow-up plan was discussed with patient. Impression/ Plan: No Changes Wyocena I: Chronic Paranoid Schizophrenia Wyocena II: No diagnosis Wyocena III: see problem list Wyocena IV: other psychosocial or environmental problems Wyocena V: 21-30 behavior considerably influenced by delusions or hallucinations OR serious impairment in judgment, communication OR inability to function in almost all areas Recommendations: Hospitalize when necessary Review with patient: Treatment plan reviewed with the patient. Medication risks/benefit reviewed with the patient Total Time: 30 mins >50% time counseling or coordinating care DIAGNOSIS: F20.9 patient, parent, and guardian has been informed of the benefits, risks, possible side effects and alternatives to the medical treatment listed above and have expressed understanding Total Time: 30 mins __ >50% time counseling or coordinating care Christi Perez documented in this encounter [facility] 07-26-2022 History of Present illness Narrative BEHAVIORAL HEALTH PSYCHIATRIC PROGRESS NOTE 07/26/2022 Leon Atkinson, a 21 y.o. male, for follow-up visit. The visit was conducted by video telehealth by patient request Patient is referred by Conrad García MD . Interval History: Leon has been relatively stable. He has been taking his medicine as directed. 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 He denies mood disturbance or suicidal thinking. He and his mother are going to take a trip to [facility] in August. This is something he is wanted to do for a long time. He is already little anxious about all the people that will be there all of them strangers him. He is sleeping well. He denies side effects from his medications. He says he is eating well. Mother concurs that he has been stable. Despite above normal intelligence, his responses are startlingly concrete at times. Paperwork submitted for continuation of guardianship. PFSH: Past Medical History: Diagnosis Date ADHD Depression Schizophrenia (HCC) Schizophrenia, first episode, currently in partial remission ([facility]) 08/12/2018 Social History Substance and Sexual Activity Alcohol Use Never Social History Substance and Sexual Activity Drug Use Never Social History Substance and Sexual Activity Sexual Activity Not Currently Partners: Male Family History Problem Relation Age of Onset Personality disorder Father Diabetes Maternal Grandmother The following portions of the patient's history were reviewed and updated as appropriate: allergies, current medications, past family history, past medical history, past social history, past surgical history, and problem list. Review of Systems Physical Exam PSYCHIATRIC EXAM: Grooming & Hygiene: disheveled and unkempt General Behavior: minimally engaged Psychomotor Activity: rigidity Speech: decreased amount Flow to Thought: [place] Thought Associations: Intact Content of Thought: delusions of persecutory Mood: Fine Affect: flat Insight: Impaired Judgment: limited Orientation: alert and oriented to person, place, time Memory: Recent intact Attention: intact Concentration: intact Language: Intact Fund of Knowledge: intact Labs/ Diagnostic Imaging reviewed: No recent data Response to Medication: Adequate ASSESSMENT AND PLAN: A: Severe schizophrenia with positive symptoms of paranoia and negative symptoms of flat affect poor motivation and social withdrawal P: Continues Invega Trinza injections 636 mg every 3 months and olanzapine 5 mg p.o. twice daily Follow-up plan was discussed with patient. Impression/ Plan: No Changes Wyocena I: Chronic Paranoid Schizophrenia Wyocena II: No diagnosis Wyocena III: See problem list Wyocena IV: other psychosocial or environmental problems Wyocena V: 41-50 serious symptoms Recommendations: RTC 3 months Review with patient: Treatment plan reviewed with the patient. Medication risks/benefit reviewed with the patient Total Time: 30 minutes>50% time counseling or coordinating care DIAGNOSIS: F20.9 patient, parent, and guardian has been informed of the benefits, risks, possible side effects and alternatives to the medical treatment listed above and have expressed understanding Total Time: 30 minutes __ >50% time counseling or coordinating care Christi Perez documented in this encounter [facility] 06-17-2022 History of Present illness Narrative CHIEF COMPLAINT: Patient presents with: Establish Care HISTORY: Leon Atkinson is a 21 year old male who presents 06/17/2022 to establish care with our clinic. They are here today for a wellness exam. Generally feels well and does not have complaints. Does wear a seatbelt when riding in a car. Does have smoke detectors. Is able to complete ADL's with independence. Was seeing Dr. Sears for PCP, last seen in 12/2018. Accompanied by his mother. Medical history significant for ADD, depression, schizophrenia, thrombocytopenia. Current medications include Zyprexa and Invega, Other providers include Dr. Perez for psychiatry with [facility]. Last labs about a year ago, platelets were 170. Last lipid panel in 2020, no issues. 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 He likes to relax. Works out. Likes to run. Lifts. 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 Hernandez Thrombocytopenia (HCC) Family Medical History: FAMILY HISTORY Problem Relation Age of Onset Diabetes Maternal Grandmother Hypertension Maternal Grandmother Heart Maternal Grandmother Hypertension Mother Hypertension Maternal Grandfather Diabetes Maternal Grandfather No Known Problems Sister Cancer Paternal Grandfather GI Social History: Social History Tobacco Use Smoking status: Never Smokeless tobacco: Never Substance Use Topics Alcohol use: Never Drug use: Never Allergies: ALLERGIES Allergen Reactions Seasonal Allergies Medications: Current Outpatient Medications Medication Sig OLANZapine orally disintegrating (ZYPREXA ZYDIS) 5 mg disintegrating tablet Take 1 tablet by mouth twice daily. INVEGA TRINZA 546 mg/1.75 mL injection Inject 1 Syringe intramuscularly every 3 months. No current facility-administered medications for this visit. Chronic Problem List: ACTIVE PROBLEM LIST Thrombocytopenia (Hcc) Paranoid Schizophrenia (Hcc) Comment: Dr. Hernandez Influenza Vaccine Refused - 06/10/2017 Depression - 01/21/2017 Add (Attention Deficit Disorder) - 02/27/2010 Review of Systems Review of Systems Respiratory: Negative for cough, choking, chest tightness, shortness of breath and wheezing. Cardiovascular: Negative for chest pain, palpitations and leg swelling. Gastrointestinal: Negative for abdominal pain, constipation, diarrhea, nausea and vomiting. Psychiatric/Behavioral: Negative for behavioral problems, confusion, decreased concentration, dysphoric mood, self-injury, sleep disturbance and suicidal ideas. The patient is not nervous/anxious. OBJECTIVE BP 110/54 Pulse 88 Ht 5' 9.5 (1.77m) Wt 155 lb (70.3kg) SpO2 98% BMI 22.57 kg/(m^2). Physical Exam Vitals and nursing note reviewed. Constitutional: General: He is awake. He is not in acute distress. Appearance: Normal appearance. He is well-developed and well-groomed. He is not ill-appearing, toxic-appearing or diaphoretic. HENT: Head: Normocephalic. Right Ear: External ear normal. Left Ear: External ear normal. Nose: Nose normal. Eyes: General: Vision grossly intact. Conjunctiva/sclera: Conjunctivae normal. Pupils: Pupils are equal, round, and reactive to light. Neck: Vascular: No JVD. Trachea: Trachea normal. Cardiovascular: Rate and Rhythm: Normal rate and regular rhythm. Pulses: Normal pulses. Heart sounds: Normal heart sounds. No murmur heard. Pulmonary: Effort: Pulmonary effort is normal. No accessory muscle usage, prolonged expiration or respiratory distress. Breath sounds: Normal breath sounds. Musculoskeletal: Cervical back: Neck supple. Skin: General: Skin is warm and dry. Capillary Refill: Capillary refill takes less than 2 seconds. Neurological: General: No focal deficit present. Mental Status: He is alert and oriented to person, place, and time. Mental status is at baseline. Psychiatric: Attention and Perception: Attention and perception normal. Mood and Affect: Mood normal. Affect is flat. Speech: Speech normal. Behavior: Behavior is withdrawn. Behavior is cooperative. Thought Content: Thought content normal. Cognition and Memory: Cognition and memory normal. Judgment: Judgment normal. ASSESSMENT/PLAN: 1. Wellness examination - ICD9: V70.0, ICD10: Z00.00 (primary diagnosis) - Counseled on healthy diet and regular exercise - Follow up for annual exam in one year 2. Paranoid schizophrenia (HCC) - ICD9: 295.30, ICD10: F20.0 Stable, follows with Dr. Perez 3. Depression, unspecified depression type - ICD9: 311, ICD10: F32.A Stable. 4. Attention deficit disorder, unspecified hyperactivity presence - ICD9: 314.00, ICD10: F98.8 Stable 5. Thrombocytopenia (HCC) - ICD9: 287.5, ICD10: D69.6 Stable, will order repeat labs but last platelet level was with in normal limits. 6. Screening for HIV (human immunodeficiency virus) - ICD9: V73.89, ICD10: Z11.4 - HIV 1 2 COMBO(AG/AB),WITH REFLEX TO DIFFERENTIATION 7. Special screening examination for viral disease - ICD9: V73.99, ICD10: Z11.59 - HEP C AB IA W/CONF SCRN 8. Encounter to establish care - ICD9: V65.8, ICD10: Z76.89 9. Encounter for therapeutic drug monitoring - ICD9: V58.83, ICD10: Z51.81 - CBC + DIFF - COMP METABOLIC PANEL - LIPID PANEL BASIC - HGB A1C 10. Encounter for screening for diabetes mellitus - ICD9: V77.1, ICD10: Z13.1 - HGB A1C 11. Screening for lipid disorders - ICD9: V77.91, ICD10: Z13.220 - LIPID PANEL BASIC Kaity Cotton APRN.REFRIGERATING TECHNICIAN Wellness exam completed. Health maintenance reviewed and updated. Chronic conditions and medications reviewed and updated as needed. Encouraged regular physical activity as tolerated, Healthy diet, and health promoting lifestyle. Encouraged regular eye doctor and dental visits. Portions of this note have been entered by ancillary staff. I have reviewed and when necessary edited, so that they are an adequate record of my encounter with this patient Please note that parts of this document were created using [employer] and therefore may contain grammatical errors. Patient verbalizes understanding of instructions from today's visit and in agreement with treatment plan. Questions answered. Agrees to call the office if questions, concerns or issues with acute symptoms not improving or if they worsen. See diagnoses and orders for additional plan(s). Allergies and medications were reviewed, list was updated, and refills given if needed. Past medical, surgical, social, and family history reviewed and updated as appropriate. Encouraged proper diet & exercise as well as compliance with taking medications. Age-appropriate health preventative measures were discussed. Return in about 1 year (around 06/17/2023) for Wellness physical.. ARNOLD Martinez documented in this encounter [facility] 05-23-2022 History of Present illness Narrative Patient presents for Invega injection. Denies any problems at this time. Brought own medication. Patient instructed on any SE of medication, verbalized understanding and agreed to proceed with treatment. Tolerated injection well. Francie Briceno LPN documented in this encounter [facility] 05-10-2022 Miscellaneous Notes Patient mother Rachel returned call and went over notes below from Dr Sears with understanding. Mother is not happy, upset that she was not notified that he needed to have appt to be seen. She will contact his Psych. Cancelled nurse visit appt. VM left for patient to return call to get Dr Sears's message. I initially ordered this medication and then discontinued it because the patient has not been seen by myself or this office since 12/2018. It has been more than 3 years since their last OV, so they are no longer established here and will need to schedule appointment to establish new PCP. I am not taking on new patients now, so will need to be with someone else. Should reach out to their psychiatrist for Invega. Patient scheduled for nurse visit 05/23/22 to receive Invega injection. Please place order at this time. Francie Briceno LPN documented in this encounter [facility] 05-02-2022 History of Present illness Narrative BEHAVIORAL HEALTH PSYCHIATRIC PROGRESS NOTE 05/02/2022 Leon Atkinson, a 21 y.o. male, for follow-up visit. Patient is referred by Conrad García MD . Interval History: Leon is here with his mother today, with whom he lives. No subjective complaints. He injured mostly has negative symptoms of schizophrenia at this time. He is not as clean and well-groomed as he has been in the past. His hair and purcell are getting very long and his fingernails are untrimmed. 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 Other than that, he stays in his room at home. He declined to join the family for Thanksgiving. He did attend his sister's wedding which was stressful for him. He has very little to say. He denies hearing voices. He continues to have some paranoia and that he will only eat food he prepares himself. Maintaining his weight okay. Sleeping okay. No suicidal thoughts. Compliant with medications. PFSH: Past Medical History: Diagnosis Date ADHD Depression Schizophrenia ([facility]) Schizophrenia, first episode, currently in partial remission ([facility]) 08/12/2018 Social History Substance and Sexual Activity Alcohol Use Never Social History Substance and Sexual Activity Drug Use Never Social History Substance and Sexual Activity Sexual Activity Not Currently Partners: Male Family History Problem Relation Age of Onset Personality disorder Father Diabetes Maternal Grandmother The following portions of the patient's history were reviewed and updated as appropriate: allergies, current medications, past family history, past medical history, past social history, past surgical history, and problem list. Review of Systems All other systems reviewed and are negative. Physical Exam PSYCHIATRIC EXAM: Grooming & Hygiene: unkempt General Behavior: Withdrawn Psychomotor Activity: no psychomotor abnormalities Speech: decreased amount Flow to Thought: Terse Thought Associations: Intact Content of Thought: No evidence of suicidal idealizations / homicidal idealizations / delusions / obsessions Mood: Chill Affect: flat Insight: limited Judgment: fair Orientation: alert and oriented to person, place, time Memory: Recent intact Attention: intact Concentration: intact Language: Intact Fund of Knowledge: intact Labs/ Diagnostic Imaging reviewed: No new data Response to Medication: Good ASSESSMENT AND PLAN: A: 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 Compliant with medications has good social support and is functioning reasonably well P: Continue Invega trinza injections every 3 months. Continue supplemental Zyprexa 5 mg twice a day. Follow-up plan was discussed with patient. Impression/ Plan: No Changes Wyocena I: Schizophrenia, undifferentiated type Wyocena II: No diagnosis Wyocena III: See problem list Wyocena IV: other psychosocial or environmental problems Wyocena V: 31-40 impairment in reality testing Recommendations: RTC 3 months Review with patient: Treatment plan reviewed with the patient. Medication risks/benefit reviewed with the patient Total Time: 15 minutes>50% time counseling or coordinating care DIAGNOSIS: F20.9 patient and parent has been informed of the benefits, risks, possible side effects and alternatives to the medical treatment listed above and have expressed understanding Total Time: 15 minutes __ >50% time counseling or coordinating care Christi Perez documented in this encounter [facility] 02-21-2022 History of Present illness Narrative Patient presents for Invega injection. Denies any problems at this time. Brought own medication. Patient instructed on any SE of medication, verbalized understanding and agreed to proceed with treatment. Tolerated injection well. Francie Briceno LPN documented in this encounter [facility] 02-20-2022 Telephone encounter Note Next appt 05/02/22 [facility] 02-20-2022 Miscellaneous Notes Next appt 05/02/[address] this encounter [facility] 02-18-2022 Telephone encounter Note Next appt 05/02/22 [facility] 02-18-2022 Miscellaneous Notes Next appt 05/02/22 documented in this encounter [facility] 01-22-2022 Telephone encounter Note Next appointment 01/31/22 [facility] 01-22-2022 Miscellaneous Notes Next appointment 01/31/[address] this encounter [facility] 11-22-2021 History of Present illness Narrative Patient presents for Invega injection per Dr Sears. Denies any problems at this time. Brought own medication. Patient instructed on any SE of medication, verbalized understanding and agreed to proceed with treatment. Tolerated injection well. Francie Briceno LPN documented in this encounter [facility] 10-31-2021 History of Present illness Narrative BEHAVIORAL HEALTH PSYCHIATRIC PROGRESS NOTE 10/31/2021 Leon Atkinson, a 21 y.o. male, for follow-up visit visit. Patient is referred by Conrad García MD . Interval History: Leon is here with his mom today for psychiatric follow-up for paranoid schizophrenia. He has been doing reasonably well since his last hospitalization. He has been faithful taking his medications although he sometimes forgets his second dose of Zyprexa. He is on Invega Trinza with next injection due November 22. He tried working for a bit but was not busy enough and decided to quit. He is cooking and preparing his own food. He is letting his personal hygiene slide some his hair is long and he has a purcell. He does not talk much to his mother at home. She says he is frequently out of the home driving around. He has no complaints about his mood. No suicidal thoughts. He denies hallucinations. Mom has not noticed any unusual areas of paranoia. He does not seem to have side effects from his medication and he denies subjective problems. PFSH: Past Medical History: Diagnosis Date ADHD Depression Schizophrenia ([facility]) Schizophrenia, first episode, currently in partial remission ([facility]) 08/12/2018 Social History Substance and Sexual Activity Alcohol Use Never Social History Substance and Sexual Activity Drug Use Never Social History Substance and Sexual Activity Sexual Activity Not Currently Partners: Male Family History Problem Relation Age of Onset Personality disorder Father Diabetes Maternal Grandmother The following portions of the patient's history were reviewed and updated as appropriate: allergies, current medications, past family history, past medical history, past social history, past surgical history, and problem list. Review of Systems All other systems reviewed and are negative. Physical Exam PSYCHIATRIC EXAM: Grooming & Hygiene: disheveled General Behavior: minimally engaged Psychomotor Activity: no abnormal movements Speech: decreased amount Flow to Thought: [place] Thought Associations: Intact Content of Thought: Mild to moderate paranoia Mood: No complaints Affect: flat Insight: poor Judgment: limited Orientation: alert and oriented to person, place, time Memory: Recent intact Attention: intact Concentration: impaired Language: Intact Fund of Knowledge: limited Labs/ Diagnostic Imaging reviewed: No new data since hospitalization Response to Medication: Adequate ASSESSMENT AND PLAN: A: Paranoid schizophrenia with prominent positive and negative symptoms of psychosis, reasonably stable on current medications. P: Continue Invega Trinza injections and oral Zyprexa 5 mg twice a day Follow-up plan was discussed with patient. Impression/ Plan: No Changes Wyocena I: Paranoid schizophrenia Wyocena II: Deferred Wyocena III: None Wyocena IV: economic problems, occupational problems, other psychosocial or environmental problems, and problems related to social environment Wyocena V: 31-40 impairment in reality testing Recommendations: RTC 3 months or as needed Review with patient: Treatment plan reviewed with the patient. Medication risks/benefit reviewed with the patient Total Time: 20 minutes>50% time counseling or coordinating care DIAGNOSIS: F 20.9 patient and parent has been informed of the benefits, risks, possible side effects and alternatives to the medical treatment listed above and have expressed understanding Total Time: 20 minutes __ >50% time counseling or coordinating care Christi Perez documented in this encounter [facility] 08-22-2021 History of Present illness Narrative Patient presents for Invega injection. Denies any problems at this time. Brought own medication. Patient instructed on any SE of medication, verbalized understanding and agreed to proceed with treatment. Tolerated injection well. Francie Briceno LPN documented in this encounter [facility] 08-14-2021 History of Present illness Narrative 1650 Discharge instructions discussed with Ziggy Ramos with signature secured Personal belongings returned from locker : coat , gloves , watch , chapstick with pt signing upon return . Both denied questions or concerns . 1605 Sitting in room. Behavior controlled. Quiet & preoccupied. Mood depressed. Affect flat. Denied having thoughts of wanting to harm self or others. Contracted for safety. Denied having hallucinations. Declined mask at this time. 1635 Ate supper in room. Appetite good. 13:15 - 13:50 Recreation Therapy - Pt in his room upon approach and he was receptive to joining group. Pt engaged in a previously learned card game 7up and he exhibited good recall. Pt was calm and controlled, he interacted only on approach. Patient is discharged this day and will followup with Dr. Perez in her outpatient office. Provider is linked with [facility] no AVS sent. Clinical team met and patient's case was staffed. Present were: Dr. Perez, Priyanka, ROSA, Jose Cruz Ellsworth Stacie. Dr. Perez reported that they will not be able to administer the injectable for Zyprexa as there is a process involved to get registered to be able offer the injectable. Dr. Perez will call the patient's mother and advise. This worker received a message from the patient's mother (Rachel) and returned her call. Clarence asked about progress with getting injectable for Zyprexa. Advised Rachel that there is more of an process involved and Dr. Perez would be calling her to discus it with her. Rachel reported if she 1044 Pt received PRN Haldol 5mg PO upon request for agitation. Pt states there's a lot of talking; a lot going on. Mouth check completed. Pt denies having any other concerns. Patient's status/progress reviewed in morning safety huddle. Nursing reported that the patient slept for 8 hours, appears anxious/tense, and going to groups. Patient is taking medication. 0920 - 0950 Goal/Warm UP: Pt got out of bed to attend group. He sits with head down giving minimal eye contact. Pt states feeling tired because I kept waking up last night. His goal for today is to get the injection. States this is the first time for this medication. Pt engaged in stretching exercises. He continues to be withdrawn and quiet. 0730 - Pt resting quietly in bed at this time, appears to be sleeping. Respirations even and nonlabored. 0807 - Vital signs obtained at this time. Pt eating breakfast in room, calm and controlled at this time. Pt denies current needs. 0824 - Pt talking one to one with this literary writer in room at this time. Pt is dressed in causal clothes, disheveled appearance with no body odor noted. Pt is watchful and guarded during interaction, appears somewhat paranoid and suspicious. Pt shares he did not sleep well last night, I'm tired. I was up and down all night. When asked pt what kept him up last night pt stated I don't really know. Pt reports his appetite is okay. Asked pt to describe his mood, pt states tired and um good I guess. When asked about AH/VH, pt states I'm not having any hallucinations. Pt currently denies SI/HI, contracts for safety with this nurse. Pt took scheduled Zyprexa without difficulty, mouth checked for pill taking. Pt encouraged to attend group today and spend time out of room. Pt offered a mask, pt declined a mask at this time. 0920 - Pt attending group at this time with Geri GONZALEZ. 1010 - Pt talking on phone in room at this time with his mom, phone call appears to be going well. Pt denies any needs at this time. 1044 - Pt given Haldol 5 mg PO at this time by Toni SERRANO per pt request for increased agitation. Pt reports he is feeling agitated because there are a lot of people and it is too much for me. Pt has spent most of the morning out of his room in common areas. Emotional support provided to pt. 1145 - Pt eating lunch in room at this time. Pt is calm and controlled. Asked pt if PRN Haldol given earlier helped pts agitation, to which pt replied yes, thank you. 1217 - This literary writer contacted pts guardian/mother, Rachel, at this time to inform of pts discharge order. Pts mother states she will be here to pecan picker pt at 5pm today. 1315 - Pt attending group with Chary GONZALEZ at this time. 1440 - Pt at nurses station at this time requesting a towel to complete hygiene, provided to pt at this time. Pt thankful. Pt has been calm and cooperative during this shift, has attended all groups. Pts mother to pick him up at 5pm. 0030 Orders and labs reviewed, patient resting quiet in bed at beginning of shift, even resp 2107 Took HSMed without incident at this time. 1558 Patient pleasant and cooperative. Patient appears anxious and tense. Patient's affect is flat. Patient reports feels a little better than earlier today since learning DR Perez will be back tomorrow. Patient is anxious over not knowing when he can go home. Patient denies any AH/VH. Patient denies any pain. Patient denies any suicidal or homicidal ideations. Patient not wearing a mask. Patient requested a snack. Patient given a granola bar and filtered water out of nursing station. 1600 Patient socially appropriate attending group. 1814 Patient calm, bed awake 2014 Patient resting quietly in bed, respirations normal 2106 Patient calm and cooperative, medication compliant 2244 Patient resting quietly in bed, respirations normal Psychiatry Progress Note Patient Name: Leon Atkinson Admit Date: 3000704 MR #: [id number] : 2000 Perpetual Assessment Leon Atkinson is a 20 y.o. 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 Mother reports that he was doing relatively well, even asking for hugs and expressing his love for her. Three days ago, he spent the night wandering around all night outside without warm clothing. He was carrying a groundhog and asking neighbors for a hatchet so he could cut it up and eat it. Police returned him to his mother. The next night, he took off toward [place]. Denies hearing voices but he is obviously distracted by internal stimuli, also looking around as if he sees things. Has not been eating because of paranoid thoughts about his food. He is taking fluids. Mother reports poor sleep right before his run away behaviors. Denies suicidal and homicidal thinking. 08-02-2021: Leon has experienced periodic episodes of extreme agitation today. He has tried to charge the door to the unit and has tried to grab keys away from security guards. After prn medications, his speech and communicative capacity was actually improved. He continues to be too paranoid to eat most foods. Remains extremely paranoid. Less blocking.No as preoccupied with internal stimuli as he was at admission. Denies SI/HI. 08-03-2021: Leon has contracted not to try to escape so that he can wear his own clothes. He opposes all medications and some foods as sorcery which he defines as the combinations of simple ingredients to result in a complex substance. He states that Revelations prohibits the use of sorcery. He will not bend on this issue. 08-04-2021: Leon remains quite paranoid but his thinking is improving. He decided to take his Zyprexa and it seems to make a big difference in his agitation and his ability to communicate effectively. He is still not eating. Today is day 2 of a 3 day mu-ism fast. He is taking fluids. He says he wants to run as fast as he can to alleviate a feeling of agitation. He does not want to watch tv because he thinks a better use of his time would be to get myself together. He has refused at allow his mom to visit. No suicidal thoughts. He denies feeling depressed but he admits to feeling angry at completely random times. He also thinks he has been arrogant and prideful. Eye contact good. Blocking much improved. Much less evidence of internal distraction. 08-05-2021: Leon admits to feeling better today. He has showered. Compliant with medications. He continues to feel agitated now and then but not nearly so badly as at admission. He is still suspicious and dubious about many things. He is beginning to eat. Still doesn't want his mom to visit. He feels tired from medications and he doesn't like that feeling. No other side effects. 08-06-2021: Leon continues to be compliant with medications and he is beginning to want to be discharged. His recent bizarre behavior seems to be related to conflicting internal thought processes. Recently, his destructive ideas took precedence. He was trying to get away from his mother because he knows she will prevent him from doing things that reflect poor judgment. He continues to lack judgment, thinking it a sound idea to ask others for halfway by knocking on strangers' door and asking to cook his groundhog in their homes because he was hungry. He also thinks it is plausible to go to [facility] with a restorationism group, even though he cannot pay his way. Maybe they will just take me. He asked me if he should trust his mother. I replied that of all human beings, she has his best interest at heart. He agreed to meet with her prior to discharge. He still doubts that he is mentally ill. 08-07-2021: Leon has regressed some since yesterday. He wants to go home, but not to his mother's house. Then he agreed to temporarily do so. He seems to have ideas about taking off again once he is released. He was more reluctant to answer benign questions today. 08-08-2021: Leon was a little more open today. Saw him with his mom. He was very withdrawn at first but seemed to relax just a little as time went on. I brought up the plan of adding a second MCCOY and he did not object. He sill complains of occasional agitation. He remains very cautious. He does admit to having problems sorting out good ideas vs poor judgment. Eating better every day. 08/09/2021: This was the first time Leon met me today and he was a little hesitant to speak with me. He answered questions minimally, stating he slept well and was eating. He planned to attend group today. He remains willing to take an additional injection of medication and is taking po medication at this time. 08/13/2021: Leon is more conversant today, stating as I enter the room that he is willing to take the zyprexa injection . Explained to him that Dr. Perez is working on this. He reports going to groups, getting good sleep. He states his appetite is good; however, he cannot eat pork, potatoes and grapes. When asked the reason for this, he states mu-ism . He asks about when he will go home and is told that Dr. Perez will be making that decision. He states he needs to go home and take care of some things that he destroyed while home, like my social security card and my debit card . He is cooperative. P: Admit for patient safety and stabilization Suicide and unpredictable precautions Invega Jama not due until 08-22. Add supplemental olanzapine 5 mg po or IM. Continue at 5 mg bid Looking into an MCCOY formulation for the Zyprexa as his compliance with oral meds is doubtful outside of the hospital - Dr. Perez is taking online required course to prescribe MCCOY Zyprexa. Current plan is to determine with pharmacist the requirements for being able to give this injection within [facility]. PRN medications for anxiety, insomnia and agitation Monitor PO intake Internal medicine consult SW consult for collateral information and discharge planning Comorbid issues impacting my care plan include none. Following for paranoid delusions, very poor judgment, agitation, social withdrawal Interval History: Leon is more conversant today, asking questions of the nursing staff, discussing his treatment plan with this provider. He is agreeable with the injection of Zyprexa Relprevv; however, Dr. Perez continues working on the availability of this medication. Review of Systems: Constitutional, cardiac, pulmonary, neurologic, musculoskeletal, GI and systems reveiwed and negative except as noted above Physical Examination: Vital Signs: BP 114/80 Pulse 82 Temp 98.3 F (36.8 C) (Oral) Resp 16 Ht 5' 10 Wt 72.4 kg (159 lb 9.8 oz) SpO2 96% BMI 22.90 kg/m Mental Status Evaluation: General Appearance & Behavior: age appropiate, cooperative and poor eye contact Grooming & Hygiene: neat and clean and street clothes Psychomotor Activity: no psychomotor abnormalities or muscle atrophy noted Gait & Station stable gait and ability to rise from bed/chair without assistance Speech: soft spoken Flow of Thought: concrete Thought Associations: Intact Content of Thought: No evidence of SI/HI and delusions Mood: fine Affect: mood congruent Insight: fair Judgment: fair Orientation: alert and oriented to person, place, time, and circumstances Memory: intact recent and remote Attention: adequate Concentration: intact Language: intact Fund of Knowledge: estimated average intelligence Laboratory and Additional Data Reviewed: Laboratory 08/13/21 3:12 PM Medications 08/13/21 3:12 PM Transcriptions 08/13/21 3:12 PM Treatment options and alternatives reviewed with patient. Risks, benefits, side effects of all psychiatric medications discussed with patient and informed consent obtained. All questions were answered. Nanette Lovell CNP 08/13/2021 3:06 PM Pt at nurses' station. Pt requesting prn, advising he feels 'angry'. Pt requesting 'something in a pill form'. Pt paranoid, reluctant to take prn's offered since they are tablets. Much encouragement provided, pt agreement to trying prn Haldol. PRN Haldol po administered as ordered. 1447 - 5925 Recreation Therapy: Pt participated in playing 3 game of emoteShare (Left, Center, Right). Pt played the first 2 game but sat out the 3rd game and watched. He was quick to learn how to play and his play was appropriate. He maintains a flat affect, head is down, and eye contact fleeting. Observed patient walking out of room in hospital gown and then immediately turning around and walking back into room. Patient appeared paranoid. Walked by patient's room and patient was sitting on bed. Asked the patient how he was doing. No response Offered encouragement to patient to keep taking medication and going to groups when he can. Going to walk away when I heard faint thank you . Clinical team met and patient's case was staffed: Present were: ROSA Mathew (covering for Kevin Carpio) , Jose Cruz Trevino Stacie. Priyanka reported that she would talk with Dr. Perez to see were things are at regarding Zyprexa injectable. Patient's statu/progress reviewed in morning safety huddle. Nursing reported that the patient slept for 11 hours, is seclusive, paranoid, and taking medication. [id number] Goal Group: PT seated on edge of his bed when approached for group. PT willing to attend. PT tense, guarded and watchful. PT will not make eye contact with literary writer or others in the group, but will answer questions appropriately, with small delay in response time. PT dressed in paper scrub top and personal pants. PT appeared clean and he did not have body odor. PT shared with group that he is a serious person and does not joke much or use humor, thus not engaging in joking banter with peer at the start of group. PT later engaged in brief sharing about dogs that he likes, I like big dogs like y[place]i shepards . PT then declined to engage further in current event discussion. PT was asked to cite feeling word for the day, to which he did not/could not do, always responding with other statements or comments. PT was then asked to share goal for the day to which pt cited I want to see Dr. Perez today because I want to take my shot . PT shared that he is willing to take the long acting injectable and hopes that he can receive it today. PT voiced that he has not taken this injectable but is willing to try it and see if it will be beneficial for him. PT went on to cite that he hopes that he can go home this date or tomorrow do to his mothers work schedule and availability to transport home. Pt was asked if his mother felt that he was improving to which he responded that he had not spoke to her about such but could call this date and see. 0742 Pt in his room sitting up at bedside. Pt staring down at this floor when approached. Denies needs. 0806 Pt resting in bed, awake and alert. Pt sits up in bed for interaction. Eye contact fair. Affect flat, mood depressed and anxious. Pt calm, preoccupied. Pt advises he slept ok when asked. Per report pt slept approximately 11 hours. Pt denies pain. Pt denies anxiety and depression. Pt denies suicidal and homicidal ideations, stating I would not hurt myself. I would not hurt anyone else . Pt denies auditory and visual hallucinations. Pt compliant taking scheduled medication, mouth check completed. Mask offered for covid precautions, education provided, pt declines. Pt remains in room. Denies needs. 0925 Pt attending group 1028 Pt at nurses' station, suspicious and paranoid. Pt inquiring who had rounded on him 'a few days ago'. Pt states someone came in my room alone. She had brown hair and a white coat. She was asking me questions. It wasn't Priyanka, I know Priyanka. Pt remains suspicious even when possible staff/students mentioned. 1103 Pt at nurses' station. Pt advises he feels 'lightheaded'. BP 114/80 HR 82 Pt provided with snack of Uncrustable sandwich and cup of water. Encouraged pt to return to his room and rest. 1203 Pt at nurses' station. Pr appears anxious and paranoid. Pt inquiring Is Dr. Perez here? Am I getting the shot? Ask Priyanka. When asked if he feel anxious and needs prn medication, pt replies I'm not anxious, I'm just sad. I want to go home . Pt denies need for prn medications, stating I don't need any medication. I'll just go to my room . Pt proceeds to his room 1212 Per Kwadwo Lovell NP, Dr. Perez will be here tomorrow. Pt informed. Pt appears less anxious when informed. 1320 Pt attending group 1445 Pt at nurses' station. Pt requesting and provided with cordless phone. Pt calm at this time. Pt advises he feels a little better when asked. Denies further needs, proceeds to his room. 2330 Report received , previous shift notes ,labs and orders reviewed , patient in bed resting quietly,resp unlabored 0130 Resting quietly,resp unlabored 0330 Resting quietly ,resp unlabored 0610 Patient according to flowsheet was in bed sleeping at 1845 and was awake x 1 for 15 minute interval ,as of O610 patient has slept approx 11 plus hours sleep 1531- Knocked on client's door. Client awake. Introduced self to client. Client dressed in own sweat pants and paper scrub top. Client appears disheveled with body odor noted. Client makes appropriate eye contact and responds with a modicum of words and delayed in conversation. Client is seclusive to room. Client interacts appropriately with staff, though appears preoccupied. Client is independent with ADLs and has a poor appetite. Client denies SI/HI/AVH/SIB and agrees to contract for safety. Client denies depression and anxiety. Client appears blank and withdrawn. Client denies any further needs at this time. Client left resting comfortably with adequate linen. Will continue to monitor for safety. 2121- Knocked on client's door. Client awake. Identified client by name, , and wristband. Administered medication as per physician order. Client tolerated medication and this nurse remained with client until medication dissolved on tongue. Client denied any further needs. Client left sitting on bed. Psychiatry Progress Note Patient Name: Leon Atkinson Admit Date: 3000704 MR #: [id number] : 2000 Perpetual Assessment Leon Atkinson is a 20 y.o. male was seen individually, case discussed with nursing staff, medical records were reviewed. Patient was sitting on bed with head low, down, was strongly encourage to maintain eye contact during evaluation. Patient remains suspicious, guarded, was staring, mumbling to self, appears to be responding to internal stimuli. Affect remained constricted. Patient has verbalized delusional thoughts of people watching him. Diagnosis & Plan/Recommendations Supportive therapy Pharmacological treatment Group therapy, activities therapy PRINCIPAL DIAGNOSIS: Undifferentiated schizophrenia (HCC) * Undifferentiated schizophrenia (HCC) Assessment & Plan A: Leon has experienced a deterioration in his symptoms in the past week. Mother reports that he was doing relatively well, even asking for hugs and expressing his love for her. Three days ago, he spent the night wandering around all night outside without warm clothing. He was carrying a groundhog and asking neighbors for a hatchet so he could cut it up and eat it. Police returned him to his mother. The next night, he took off toward [place]. Denies hearing voices but he is obviously distracted by internal stimuli, also looking around as if he sees things. Has not been eating because of paranoid thoughts about his food. He is taking fluids. Mother reports poor sleep right before his run away behaviors. Denies suicidal and homicidal thinking. 08-02-2021: Leon has experienced periodic episodes of extreme agitation today. He has tried to charge the door to the unit and has tried to grab keys away from security guards. After prn medications, his speech and communicative capacity was actually improved. He continues to be too paranoid to eat most foods. Remains extremely paranoid. Less blocking.No as preoccupied with internal stimuli as he was at admission. Denies SI/HI. 08-03-2021: Leon has contracted not to try to escape so that he can wear his own clothes. He opposes all medications and some foods as sorcery which he defines as the combinations of simple ingredients to result in a complex substance. He states that Revelations prohibits the use of sorcery. He will not bend on this issue. 08-04-2021: Leon remains quite paranoid but his thinking is improving. He decided to take his Zyprexa and it seems to make a big difference in his agitation and his ability to communicate effectively. He is still not eating. Today is day 2 of a 3 day mu-ism fast. He is taking fluids. He says he wants to run as fast as he can to alleviate a feeling of agitation. He does not want to watch tv because he thinks a better use of his time would be to get myself together. He has refused at allow his mom to visit. No suicidal thoughts. He denies feeling depressed but he admits to feeling angry at completely random times. He also thinks he has been arrogant and prideful. Eye contact good. Blocking much improved. Much less evidence of internal distraction. 08-05-2021: Leon admits to feeling better today. He has showered. Compliant with medications. He continues to feel agitated now and then but not nearly so badly as at admission. He is still suspicious and dubious about many things. He is beginning to eat. Still doesn't want his mom to visit. He feels tired from medications and he doesn't like that feeling. No other side effects. 08-06-2021: Leon continues to be compliant with medications and he is beginning to want to be discharged. His recent bizarre behavior seems to be related to conflicting internal thought processes. Recently, his destructive ideas took precedence. He was trying to get away from his mother because he knows she will prevent him from doing things that reflect poor judgment. He continues to lack judgment, thinking it a sound idea to ask others for halfway by knocking on strangers' door and asking to cook his groundhog in their homes because he was hungry. He also thinks it is plausible to go to [facility] with a restorationism group, even though he cannot pay his way. Maybe they will just take me. He asked me if he should trust his mother. I replied that of all human beings, she has his best interest at heart. He agreed to meet with her prior to discharge. He still doubts that he is mentally ill. 08-07-2021: Leon has regressed some since yesterday. He wants to go home, but not to his mother's house. Then he agreed to temporarily do so. He seems to have ideas about taking off again once he is released. He was more reluctant to answer benign questions today. 08-08-2021: Leon was a little more open today. Saw him with his mom. He was very withdrawn at first but seemed to relax just a little as time went on. I brought up the plan of adding a second MCCOY and he did not object. He sill complains of occasional agitation. He remains very cautious. He does admit to having problems sorting out good ideas vs poor judgment. Eating better every day. 08/09/2021: This was the first time Leon met me today and he was a little hesitant to speak with me. He answered questions minimally, stating he slept well and was eating. He planned to attend group today. He remains willing to take an additional injection of medication and is taking po medication at this time. P: Admit for patient safety and stabilization Suicide and unpredictable precautions Invega Allysonza not due until 08-22. Add supplemental olanzapine 5 mg po or IM. Continue at 5 mg bid Looking into an MCCOY formulation for the Zyprexa as his compliance with oral meds is doubtful outside of the hospital - Dr. Perez is taking onlne required course to prescribe MCCOY Zyprexa. Current plan is to keep him in hospital until he receives this medication. PRN medications for anxiety, insomnia and agitation Monitor PO intake Internal medicine consult SW consult for collateral information and discharge planning . Following for Christi Perez MD Interval History: Review of Systems: Constitutional:No fever, no weight loss Eyes:No diplopia ENT:No sinus drainage CV:No chest pain. No ankle swelling Resp:No dyspnea. No wheezing GI:No abdominal pain.No abdominal distention :No dysuria Neuro:No headache Integumentary:No skin rash MuscSkel:No arthralgias Endo:No polyuria Heme/lymphatic:No apparent lymphadenopathy Physical Examination: Vital Signs: BP 117/78 (BP Location: Left arm, Patient Position: Sitting) Pulse 84 Temp 97.7 F (36.5 C) (Oral) Resp 18 Ht 5' 10 Wt 72.4 kg (159 lb 9.8 oz) SpO2 97% BMI 22.90 kg/m Mental Status Evaluation: General Appearance & Behavior: cooperative and minimally engaged Grooming & Hygiene: hospital gown Psychomotor Activity: psychomotor retardation Gait & Station stable gait Speech: diminished amount and soft spoken Flow of Thought: concrete Thought Associations: Loose Content of Thought: delusions and paranoia Mood: stressed out Affect: restricted and flat Insight: poor Judgment: poor Orientation: alert and oriented to person, place, time, and circumstances Memory: intact recent and remote Attention: adequate Concentration: intact Language: intact Fund of Knowledge: estimated average intelligence Laboratory and Additional Data Reviewed: Laboratory 08/12/21 6:25 PM Medications 08/12/21 6:25 PM Transcriptions 08/12/21 6:25 PM Treatment options and alternatives reviewed with patient. Risks, benefits, side effects of all psychiatric medications discussed with patient and informed consent obtained. All questions were answered. Castillo Graham MD 08/12/2021 6:22 PM [id number] Recreation Therapy: PT out walking in hallway, wide eyed and guarded, when approached to attend group. PT willing to attend and took self to group room. PT quiet, tense and preoccupied, not engaging in conversation only task. PT and peers were educated to new leisure skill of Khush, a sequencing card game. PT attentive to verbal and visual directions. PT able to play with only minor verbal cues for first hand and then independent for other hands played. No issues with sequencing cards in descending order or with alternating of colors. PT indifferent as to if he enjoyed the activity or engage at another time. PT's were educated to recreation options on the unit to use in free time. 0750 Pt sitting in dining room, appetite appears fair. 0828 Pt in his room. Affect flat, mood anxious and suspicious. Pt calm, preoccupied. Pt advises he didn't sleep well when asked. Per report pt slept Approximately 9 hours. Pt denies pain. Pt denies anxiety and depression. Denies suicidal and homicidal ideations, voicing I would not hurt myself, I would not hurt anyone else . Pt denies auditory and visual hallucinations. Pt compliant taking scheduled medications, mouth check completed. Mask offered for covid precautions, education provided, pt declines. Pt denies further needs, remains in his room. 0932 Pt resting in bed with eyes closed, respirations even and unlabored. 1145 Pt sitting in his room eating lunch. Pt calm, isolative to room. 1244 Pt sitting in room, staring down at floor. Denies needs. 1340 Pt attending group 2330 - Special precautions continue - see flow sheet for observations and documentation. Patient currently resting quietly in bed. 0300-Continues to rest quietly in bed. 0600- Patient appears to have rested approximately 9 hours to present. Patient remains in bed resting quietly at this time. 1929: Patient in bed, blankets pulled over his, resp even and unlabored. 2099- Scheduled medication given, mouth check performed. Patient offered snacks and declined and needs at this moment, returned to resting in bed. 2224: Patient remains laying in bed this shift, avoidant of interaction. 1724 - 1754 Recreational Group - Pt lying in bed when approached about attending group, Pt initially indecisive about attending group, stating, Can I think about it? This literary writer told the Pt sure and left to go asked other Pt about joining group. The Pt meet this literary writer in the hallway and agreed to join group. Pt was the only one attending group and this literary writer let the Pt decided which game to play, Pt picked the card game War. Pt was able to play independently and stay focused. Pt only interacted when spoken to, not initiating conversation. Pt was quiet, guarded, had a staring affect and poor eye contact during group. Towards the end of group this literary writer asked the Pt how he was doing Pt replied, I am still sad, and want to go home. When asked if the Pt was sad about not going home Pt replied, Yes, but also I want to go [place], but its a secret, I don't want to talk about it anymore. Pt was receptive and attentive with group, thanking this literary writer a couple of times after group ended. Psychiatry Progress Note Patient Name: Leon Atkinson Admit Date: 3000704 MR #: [id number] : 2000 Perpetual Assessment Leon Atkinson is a 20 y.o. male was seen individually, case discussed with nursing staff, medical records were reviewed. Patient stated that he is stressed out as, has feeling that people are talking about him and not good for him. Patient claimed that no one likes to be because of my attitude . He remained suspicious, guarded, has severe thought blocking. He was staring, mumbling during evaluation. Diagnosis & Plan/Recommendations Supportive therapy Pharmacological treatment Group therapy, activities therapy PRINCIPAL DIAGNOSIS: Undifferentiated schizophrenia (HCC) * Undifferentiated schizophrenia (HCC) Assessment & Plan A: Leon has experienced a deterioration in his symptoms in the past week. Mother reports that he was doing relatively well, even asking for hugs and expressing his love for her. Three days ago, he spent the night wandering around all night outside without warm clothing. He was carrying a groundhog and asking neighbors for a hatchet so he could cut it up and eat it. Police returned him to his mother. The next night, he took off toward [place]. Denies hearing voices but he is obviously distracted by internal stimuli, also looking around as if he sees things. Has not been eating because of paranoid thoughts about his food. He is taking fluids. Mother reports poor sleep right before his run away behaviors. Denies suicidal and homicidal thinking. 08-02-2021: Leon has experienced periodic episodes of extreme agitation today. He has tried to charge the door to the unit and has tried to grab keys away from security guards. After prn medications, his speech and communicative capacity was actually improved. He continues to be too paranoid to eat most foods. Remains extremely paranoid. Less blocking.No as preoccupied with internal stimuli as he was at admission. Denies SI/HI. 08-03-2021: Leon has contracted not to try to escape so that he can wear his own clothes. He opposes all medications and some foods as sorcery which he defines as the combinations of simple ingredients to result in a complex substance. He states that Revelations prohibits the use of sorcery. He will not bend on this issue. 08-04-2021: Leon remains quite paranoid but his thinking is improving. He decided to take his Zyprexa and it seems to make a big difference in his agitation and his ability to communicate effectively. He is still not eating. Today is day 2 of a 3 day mu-ism fast. He is taking fluids. He says he wants to run as fast as he can to alleviate a feeling of agitation. He does not want to watch tv because he thinks a better use of his time would be to get myself together. He has refused at allow his mom to visit. No suicidal thoughts. He denies feeling depressed but he admits to feeling angry at completely random times. He also thinks he has been arrogant and prideful. Eye contact good. Blocking much improved. Much less evidence of internal distraction. 08-05-2021: Leon admits to feeling better today. He has showered. Compliant with medications. He continues to feel agitated now and then but not nearly so badly as at admission. He is still suspicious and dubious about many things. He is beginning to eat. Still doesn't want his mom to visit. He feels tired from medications and he doesn't like that feeling. No other side effects. 08-06-2021: Leon continues to be compliant with medications and he is beginning to want to be discharged. His recent bizarre behavior seems to be related to conflicting internal thought processes. Recently, his destructive ideas took precedence. He was trying to get away from his mother because he knows she will prevent him from doing things that reflect poor judgment. He continues to lack judgment, thinking it a sound idea to ask others for halfway by knocking on strangers' door and asking to cook his groundhog in their homes because he was hungry. He also thinks it is plausible to go to [facility] with a restorationism group, even though he cannot pay his way. Maybe they will just take me. He asked me if he should trust his mother. I replied that of all human beings, she has his best interest at heart. He agreed to meet with her prior to discharge. He still doubts that he is mentally ill. 08-07-2021: Leon has regressed some since yesterday. He wants to go home, but not to his mother's house. Then he agreed to temporarily do so. He seems to have ideas about taking off again once he is released. He was more reluctant to answer benign questions today. 08-08-2021: Leon was a little more open today. Saw him with his mom. He was very withdrawn at first but seemed to relax just a little as time went on. I brought up the plan of adding a second MCCOY and he did not object. He sill complains of occasional agitation. He remains very cautious. He does admit to having problems sorting out good ideas vs poor judgment. Eating better every day. 08/09/2021: This was the first time Leon met me today and he was a little hesitant to speak with me. He answered questions minimally, stating he slept well and was eating. He planned to attend group today. He remains willing to take an additional injection of medication and is taking po medication at this time. P: Admit for patient safety and stabilization Suicide and unpredictable precautions Invega Jama not due until 08-22. Add supplemental olanzapine 5 mg po or IM. Continue at 5 mg bid Looking into an MCCOY formulation for the Zyprexa as his compliance with oral meds is doubtful outside of the hospital - Dr. Perez is taking onlne required course to prescribe MCCOY Zyprexa. Current plan is to keep him in hospital until he receives this medication. PRN medications for anxiety, insomnia and agitation Monitor PO intake Internal medicine consult SW consult for collateral information and discharge planning Comorbid issues impacting my care plan include none Following for Christi Perez MD Interval History: Review of Systems: Constitutional:No fever, no weight loss Eyes:No diplopia ENT:No sinus drainage CV:No chest pain. No ankle swelling Resp:No dyspnea. No wheezing GI:No abdominal pain.No abdominal distention :No dysuria Neuro:No headache Integumentary:No skin rash MuscSkel:No arthralgias Endo:No polyuria Heme/lymphatic:No apparent lymphadenopathy Allergic/Immunologic:No hives Physical Examination: Vital Signs: BP 109/70 Pulse 98 Temp 98.6 F (37 C) (Oral) Resp 16 Ht 5' 10 Wt 72.4 kg (159 lb 9.8 oz) SpO2 96% BMI 22.90 kg/m Mental Status Evaluation: General Appearance & Behavior: minimally engaged and poor eye contact Grooming & Hygiene: hospital gown Psychomotor Activity: psychomotor retardation Gait & Station stable gait Speech: soft spoken and mumbled Flow of Thought: thought blocking Thought Associations: Loose Content of Thought: delusions and paranoia Mood: stressed out Affect: restricted Insight: poor Judgment: poor Orientation: alert and oriented to person, place, time, and circumstances Memory: intact recent and remote Attention: adequate Concentration: intact Language: intact Fund of Knowledge: estimated average intelligence Laboratory and Additional Data Reviewed: Laboratory 08/11/21 4:25 PM Medications 08/11/21 4:25 PM Transcriptions 08/11/21 4:25 PM Treatment options and alternatives reviewed with patient. Risks, benefits, side effects of all psychiatric medications discussed with patient and informed consent obtained. All questions were answered. Castillo Graham MD 08/11/2021 4:19 PM 16:00 Patient resting on bed with eyes open. Delayed responses. Rates his depression a 0 and his anxiety a 0 . States he is having some emotions. Mostly sadness because I want to go home. States his sadness is not extreme, but I'm just sad . States he slept okay last night. Denies any suicidal or homicidal thoughts. Patient offered a mask for covid safety, but patient declined. States he feels safe in the hospital. Reassurance given. Encouraged patient to attend therapies and voice concerns to staff. No voiced complaints. 16:30 Patient ate about 50% of supper in dining area. 17:30 Patient participated in therapy session on unit. Patient thanked Ehsan therapist after session. PT placed on hold for group do to restless, guarded, pacing and perseverating BEH. 0742 Pt resting in bed with eyes closed, respirations even and unlabored. 0804 Pt in dining room. Eye contact fair. Affect flat, mood anxious and suspicious. Pt calm, preoccupied and guarded. Pt advises he slept ok when asked. Pt states I slept good . Per report pt slept approximately 6.75 hours. Pt denies anxiety, stating no, but yesterday was a bad day . Pt denies depression. Pt denies suicidal ideations, stating I would not hurt myself . Pt denies homicidal ideation, stating I would not hurt anyone . Pt denies auditory and visual hallucinations. Pt compliant taking scheduled medication, mouth check completed. Mask offered for covid precautions, education provided, pt declines. Pt denies needs. 0917 Pt resting in bed with eyes closed, respirations even and unlabored. 1043 Pt at nurses' station. Pt requesting and provided with snack of goldfish crackers and ice cream sandwich. Pt soft spoken, appropriate with request. 1250 Pt approaches the nurses' station several times in a row to say 'thank you' to this literary writer for laundering his clothing. Pt appears suspicious and watchful. 1435 Pt approaches the nurses' station, stated thank you Vanessa . Pt then walks away from desk into the dining room. Pt remains suspicious and watchful. 0000 Pt supine, eyes closed, breathing easy. 0200 Pt lying on right side, eyes closed, eupneic, no signs of distress noted. 0400 Pt lying on right side, eyes closed, respirations 16 and regular. No needs observed at this time. 0600 Pt lying on right side, respirations even. Pt rested approximately 6 hours and 45 minutes this shift. Psychiatry Progress Note Patient Name: Leon Atkinson Admit Date: 3000704 MR #: [id number] : 2000 Perpetual Assessment Leon Atkinson is a 20 y.o. male was seen individually, please discussed with nursing staff, medical records reviewed. Patient was laying in bed on approach, was staring at the ceiling, mumbling to self, appears to be responding to internal stimuli. He appeared suspicious, guarded. Affect remains constricted. Will monitor medication compliance closely. Patient is encouraged to spend time in the room area, to interact with staff, peers and to participate in activities therapy. Diagnosis & Plan/Recommendations Supportive therapy Pharmacological treatment Group therapy, activities therapy PRINCIPAL DIAGNOSIS: Undifferentiated schizophrenia (HCC) * Undifferentiated schizophrenia (HCC) Assessment & Plan A: Leon has experienced a deterioration in his symptoms in the past week. Mother reports that he was doing relatively well, even asking for hugs and expressing his love for her. Three days ago, he spent the night wandering around all night outside without warm clothing. He was carrying a groundhog and asking neighbors for a hatchet so he could cut it up and eat it. Police returned him to his mother. The next night, he took off toward [place]. Denies hearing voices but he is obviously distracted by internal stimuli, also looking around as if he sees things. Has not been eating because of paranoid thoughts about his food. He is taking fluids. Mother reports poor sleep right before his run away behaviors. Denies suicidal and homicidal thinking. 08-02-2021: Leon has experienced periodic episodes of extreme agitation today. He has tried to charge the door to the unit and has tried to grab keys away from security guards. After prn medications, his speech and communicative capacity was actually improved. He continues to be too paranoid to eat most foods. Remains extremely paranoid. Less blocking.No as preoccupied with internal stimuli as he was at admission. Denies SI/HI. 08-03-2021: Leon has contracted not to try to escape so that he can wear his own clothes. He opposes all medications and some foods as sorcery which he defines as the combinations of simple ingredients to result in a complex substance. He states that Revelations prohibits the use of sorcery. He will not bend on this issue. 08-04-2021: Leon remains quite paranoid but his thinking is improving. He decided to take his Zyprexa and it seems to make a big difference in his agitation and his ability to communicate effectively. He is still not eating. Today is day 2 of a 3 day mu-ism fast. He is taking fluids. He says he wants to run as fast as he can to alleviate a feeling of agitation. He does not want to watch tv because he thinks a better use of his time would be to get myself together. He has refused at allow his mom to visit. No suicidal thoughts. He denies feeling depressed but he admits to feeling angry at completely random times. He also thinks he has been arrogant and prideful. Eye contact good. Blocking much improved. Much less evidence of internal distraction. 08-05-2021: Leon admits to feeling better today. He has showered. Compliant with medications. He continues to feel agitated now and then but not nearly so badly as at admission. He is still suspicious and dubious about many things. He is beginning to eat. Still doesn't want his mom to visit. He feels tired from medications and he doesn't like that feeling. No other side effects. 08-06-2021: Leon continues to be compliant with medications and he is beginning to want to be discharged. His recent bizarre behavior seems to be related to conflicting internal thought processes. Recently, his destructive ideas took precedence. He was trying to get away from his mother because he knows she will prevent him from doing things that reflect poor judgment. He continues to lack judgment, thinking it a sound idea to ask others for halfway by knocking on strangers' door and asking to cook his groundhog in their homes because he was hungry. He also thinks it is plausible to go to [facility] with a restorationism group, even though he cannot pay his way. Maybe they will just take me. He asked me if he should trust his mother. I replied that of all human beings, she has his best interest at heart. He agreed to meet with her prior to discharge. He still doubts that he is mentally ill. 08-07-2021: Leon has regressed some since yesterday. He wants to go home, but not to his mother's house. Then he agreed to temporarily do so. He seems to have ideas about taking off again once he is released. He was more reluctant to answer benign questions today. 08-08-2021: Leon was a little more open today. Saw him with his mom. He was very withdrawn at first but seemed to relax just a little as time went on. I brought up the plan of adding a second MCCOY and he did not object. He sill complains of occasional agitation. He remains very cautious. He does admit to having problems sorting out good ideas vs poor judgment. Eating better every day. 08/09/2021: This was the first time Leon met me today and he was a little hesitant to speak with me. He answered questions minimally, stating he slept well and was eating. He planned to attend group today. He remains willing to take an additional injection of medication and is taking po medication at this time. P: Admit for patient safety and stabilization Suicide and unpredictable precautions Invega Trinza not due until 08-22. Add supplemental olanzapine 5 mg po or IM. Continue at 5 mg bid Looking into an MCCOY formulation for the Zyprexa as his compliance with oral meds is doubtful outside of the hospital - Dr. Perez is taking onlne required course to prescribe MCCOY Zyprexa. Current plan is to keep him in hospital until he receives this medication. PRN medications for anxiety, insomnia and agitation Monitor PO intake Internal medicine consult SW consult for collateral information and discharge planning Comorbid issues impacting my care plan include none Following for Christi Perez MD Interval History: Review of Systems: Constitutional:No fever, no weight loss Eyes:No diplopia ENT:No sinus drainage CV:No chest pain. No ankle swelling Resp:No dyspnea. No wheezing GI:No abdominal pain.No abdominal distention :No dysuria Neuro:No headache Integumentary:No skin rash MuscSkel:No arthralgias Endo:No polyuria Heme/lymphatic:No apparent lymphadenopathy Allergic/Immunologic:No hives Physical Examination: Vital Signs: BP 120/78 Pulse 75 Temp 97.1 F (36.2 C) (Infrared) Resp 16 Ht 5' 10 Wt 72.4 kg (159 lb 9.8 oz) SpO2 98% BMI 22.90 kg/m Mental Status Evaluation: General Appearance & Behavior: minimally engaged and poor eye contact Grooming & Hygiene: street clothes Psychomotor Activity: psychomotor retardation Gait & Station stable gait Speech: soft spoken and mumbled Flow of Thought: concrete Thought Associations: Loose Content of Thought: delusions and paranoia Mood: stressed out Affect: restricted Insight: poor Judgment: poor Orientation: alert and oriented to person, place, time, and circumstances Memory: intact recent and remote Attention: adequate Concentration: reduced Language: intact Fund of Knowledge: estimated average intelligence Laboratory and Additional Data Reviewed: Laboratory 08/10/21 7:55 PM Medications 08/10/21 7:55 PM Transcriptions 08/10/21 7:55 PM Treatment options and alternatives reviewed with patient. Risks, benefits, side effects of all psychiatric medications discussed with patient and informed consent obtained. All questions were answered. Castillo Graham MD 08/10/2021 7:47 PM 1618 Patient is friendly and cooperative. Patient reports is depressed because they are still here. Patient's affect is flat. Patient reports anxiety. Patient denies any pain. Patient denies any suicidal ideations. 170 Patient given Ativan 2 mg PO for increased anxiety/ agitation 0 Patient calm, bed awake 2117 Patient calm and cooperative, medication compliant. Patient given a pizza snack 2228 Patient has been calm and controlled and has isolated to room majority of 2nd shift [id number] Recreation Therapy: Pt in room resting in bed when approached for group. PT woke quickly to name being called and willing to attend, taking self to group room. PT and peers were educated to new leisure skill of ship, captain, crew a dice game. PT appeared inattentive to directions, but demonstrated that he retained them well and applied then well also. PT able to complete simple single digit math without difficulty. PT made sound play choices. Affect remained flat throughout group but the few responses that he did provide were appropriate and reality based. Pt held little to no eye contact with others, BEH tense and watchful. Benefits of activity presented and discussed. This worker stopped at patient's room. Patient sleeping soundly. Will stop again at another time. Patient's status/progress reviewed in morning safety meeting. Nursing reported that the patient slept for 7 hours, has been calm/coopertive, still guarded. Patient taking medication. I called patient's mother (Rachel/Kalievikkikati) to let her know that I received a message from the [employer] at [facility] in [place] who advised me that he was not aware of any step down stabilization for adult patient's other than some patient's going in and out of correction for stabilization. These patient's are linked with a mental health center . Also advised Rachel that Dr. Perez was looking into long lasting injectable for olanzapine to see it might be an option. Rachel appreciative of update. Goal Group and AM Warm Up: Pt was resting in bed when approached for group. Refused to attend 0757: VS obtained. Pt eating breakfast in room. Calm and controlled. Pt is alert and oriented awake in bed. Calm and cooperative. Maintains fair eye contact. Flat affect. Guarded. Pt describes mood this date as relaxed. Pt is dressed in street pants and paper scrub top. Appears disheveled. Pt denies SI/HI/AH/VH and contracts safety with this staff. Paranoid delusions observed. Pt rates anxiety and depression both 0/10. Pt states he slept well and has a good appetite. Pt received scheduled medication and took without difficulty. No medication noted upon oral cavity inspection. Pt verbalizes name and use of medications. Pt states that his medication is helping with my thoughts and beliefs. Encouraged pt to express needs to staff. Pt educated on importance of mask use. Pt opted to not wear mask at this time. 1000: Pt walking around in room. Appears suspicious at time walking to room door and looking up and down the hallway. Controlled. 1145: Pt eating lunch in room. Calm and controlled. 1400: Pt attending group. 0030 Orders and labs reviewed, patient resting quiet in bed at beginning of shift, even resp 0630 Rested fair overnight, appeared to sleep 7 hours to this point and remains resting in bed at present 1555 Patient is calm, cooperative, and pleasant. Patient is somewhat guarded. Patient appears depressed with flat affect. Patient denies any AH/VH. Patient denies any pain. Patient denies any suicidal ideations. Patient not wearing a mask. 1800 Patient resting quietly in bed, respirations normal 2000 Patient calm, bed awake 2130 Patient is pleasant and calm, medication compliant. Patient given a snack and milk 2242 Patient has been calm and controlled during this shift Psychiatry Progress Note Patient Name: Leon Atkinson Admit Date: 3000704 MR #: [id number] : 2000 Perpetual Assessment Leon Atkinson is a 20 y.o. male presenting with paranoid delusions, bizarre behaviors, agitation, thought blocking, social withdrawal Diagnosis & Plan/Recommendations PRINCIPAL DIAGNOSIS: Undifferentiated schizophrenia (HCC) * Undifferentiated schizophrenia (HCC) Assessment & Plan A: eLon has experienced a deterioration in his symptoms in the past week. Mother reports that he was doing relatively well, even asking for hugs and expressing his love for her. Three days ago, he spent the night wandering around all night outside without warm clothing. He was carrying a groundhog and asking neighbors for a hatchet so he could cut it up and eat it. Police returned him to his mother. The next night, he took off toward [place]. Denies hearing voices but he is obviously distracted by internal stimuli, also looking around as if he sees things. Has not been eating because of paranoid thoughts about his food. He is taking fluids. Mother reports poor sleep right before his run away behaviors. Denies suicidal and homicidal thinking. 08-02-2021: Leon has experienced periodic episodes of extreme agitation today. He has tried to charge the door to the unit and has tried to grab keys away from security guards. After prn medications, his speech and communicative capacity was actually improved. He continues to be too paranoid to eat most foods. Remains extremely paranoid. Less blocking.No as preoccupied with internal stimuli as he was at admission. Denies SI/HI. 08-03-2021: Leon has contracted not to try to escape so that he can wear his own clothes. He opposes all medications and some foods as sorcery which he defines as the combinations of simple ingredients to result in a complex substance. He states that Revelations prohibits the use of sorcery. He will not bend on this issue. 08-04-2021: Leon remains quite paranoid but his thinking is improving. He decided to take his Zyprexa and it seems to make a big difference in his agitation and his ability to communicate effectively. He is still not eating. Today is day 2 of a 3 day mu-ism fast. He is taking fluids. He says he wants to run as fast as he can to alleviate a feeling of agitation. He does not want to watch tv because he thinks a better use of his time would be to get myself together. He has refused at allow his mom to visit. No suicidal thoughts. He denies feeling depressed but he admits to feeling angry at completely random times. He also thinks he has been arrogant and prideful. Eye contact good. Blocking much improved. Much less evidence of internal distraction. 08-05-2021: Leon admits to feeling better today. He has showered. Compliant with medications. He continues to feel agitated now and then but not nearly so badly as at admission. He is still suspicious and dubious about many things. He is beginning to eat. Still doesn't want his mom to visit. He feels tired from medications and he doesn't like that feeling. No other side effects. 08-06-2021: Leon continues to be compliant with medications and he is beginning to want to be discharged. His recent bizarre behavior seems to be related to conflicting internal thought processes. Recently, his destructive ideas took precedence. He was trying to get away from his mother because he knows she will prevent him from doing things that reflect poor judgment. He continues to lack judgment, thinking it a sound idea to ask others for halfway by knocking on strangers' door and asking to cook his groundhog in their homes because he was hungry. He also thinks it is plausible to go to [facility] with a restorationism group, even though he cannot pay his way. Maybe they will just take me. He asked me if he should trust his mother. I replied that of all human beings, she has his best interest at heart. He agreed to meet with her prior to discharge. He still doubts that he is mentally ill. 08-07-2021: Leon has regressed some since yesterday. He wants to go home, but not to his mother's house. Then he agreed to temporarily do so. He seems to have ideas about taking off again once he is released. He was more reluctant to answer benign questions today. 08-08-2021: Leon was a little more open today. Saw him with his mom. He was very withdrawn at first but seemed to relax just a little as time went on. I brought up the plan of adding a second MCCOY and he did not object. He sill complains of occasional agitation. He remains very cautious. He does admit to having problems sorting out good ideas vs poor judgment. Eating better every day. 08/09/2021: This was the first time Leon met me today and he was a little hesitant to speak with me. He answered questions minimally, stating he slept well and was eating. He planned to attend group today. He remains willing to take an additional injection of medication and is taking po medication at this time. P: Admit for patient safety and stabilization Suicide and unpredictable precautions Invega Trinza not due until 08-22. Add supplemental olanzapine 5 mg po or IM. Continue at 5 mg bid Looking into an MCCOY formulation for the Zyprexa as his compliance with oral meds is doubtful outside of the hospital - Dr. Perez is taking onlne required course to prescribe MCCOY Zyprexa. Current plan is to keep him in hospital until he receives this medication. PRN medications for anxiety, insomnia and agitation Monitor PO intake Internal medicine consult SW consult for collateral information and discharge planning Comorbid issues impacting my care plan include none. Following for paranoid delusions, very poor judgment, agitation, social withdrawal Interval History: Leon progressed to attending group today, stating he slept well and was feeling good. He was open to sharing with several staff that his meeting with his mother yesterday went well. Review of Systems: Constitutional, cardiac, pulmonary, neurologic, musculoskeletal, GI and systems reveiwed and negative except as noted above Physical Examination: Vital Signs: BP 115/80 (Patient Position: Sitting) Pulse 79 Temp 97.8 F (36.6 C) (Infrared) Resp 12 Ht 5' 10 Wt 72.4 kg (159 lb 9.8 oz) SpO2 97% BMI 22.90 kg/m Mental Status Evaluation: General Appearance & Behavior: age appropiate, minimally engaged and poor eye contact Grooming & Hygiene: neat and clean and street clothes Psychomotor Activity: no psychomotor abnormalities or muscle atrophy noted Gait & Station stable gait and ability to rise from bed/chair without assistance Speech: soft spoken Flow of Thought: concrete Thought Associations: Intact Content of Thought: No evidence of SI/HI Mood: okay Affect: mood congruent Insight: poor Judgment: poor Orientation: alert and oriented to person, place, time, and circumstances Memory: intact recent and remote Attention: adequate Concentration: reduced Language: intact Fund of Knowledge: estimated average intelligence Laboratory and Additional Data Reviewed: Laboratory 08/09/21 3:55 PM Medications 08/09/21 3:55 PM Transcriptions 08/09/21 3:55 PM Treatment options and alternatives reviewed with patient. Risks, benefits, side effects of all psychiatric medications discussed with patient and informed consent obtained. All questions were answered. Nanette Lovell CNP 08/09/2021 3:50 PM Nutrition Care Initial Assessment Reason for visit: Dietitian Screen Nutrition Diagnosis: no current nutrition problemNutrition Intervention: meal rounds Meal and Snacks Nutrition Prescription: Diet: regular Nutrition Goals: PO intake > 75% most meals Start Date:08/09/2021 Expected End Date:08/19/2021 Nutrition Education: No needs at this time Assessment: Pertinent clinical information: Past Medical History: Diagnosis Date ADHD Depression Schizophrenia ([facility]) Schizophrenia, first episode, currently in partial remission ([facility]) 08/12/2018 Height: 5' 10 Current weight: 72.4 kg (159 lb 9.8 oz) BMI Body mass index is 22.9 kg/m . Weight hx: Wt Readings from Last 5 Encounters: 07/31/21 72.4 kg (159 lb 9.8 oz) 07/30/21 59 kg (130 lb) 05/03/21 60.3 kg (133 lb) 03/21/21 60.3 kg (133 lb) 02/21/21 60.3 kg (133 lb) Current diet order: regular Recent intake: 75%. Current intake Likely meets estimated needs. Patient/family comments: sometimes selects menu Difficulty Chewing/Swallowing: No Skin Integrity: Intact GI Function: WNL Physical Appearance: no signs or symptoms of malnutrition Nutrition Focus Physical Exam Type: Visual Labs: No results for input(s): NA, K, BICARB, CL, GLUCOSE, BUN, CREATININE, MG, PHOS in the last 72 hours. Scheduled Meds: OLANZapine zydis 5 mg Oral BID Continuous Infusions: Estimated Energy Needs Total Energy Estimated Needs: 2500kcal Method for Estimating Needs: 35kcal/kg Total Protein Estimated Needs: 80gm Method for Estimating Needs: 1.1gm/kg Jerry Pedroza MS, RDN, LD Dietitian Office Patient's status/progress reviewed in morning safety huddle. Nursing reported that the patient slept for 10 hours, is taking medication, and eating better. Clinical team met and the patient's case was staffed. Present were: ROSA Mathew, Jodee Guzman Brennan. Priyanka reported that Dr. Perez was looking into the use of a long lasting injectable for olanzapine (Relpreve), which is not currently available in hospital pharmacy. Patient's mother met with Dr. Perez yesterday and also visited with patient. Visit went well Goal Group: Pt stated feeling good Shared he slept good as well I just was up a few times, if I laid down I would doze off Pt stated goal to try to get home Stated his visit with his mother went good AM Warm Up: Pt participated in breathing and chair level exercises, putting forth fair effort. Maintained a blunt affect. Conversed only when asked a specific question. 0730: Patient sitting in room. Patient denies any needs or concerns at this time. Call light in reach. 0754: VS obtained. 0829: Patient resting in bed, easily awakened. Alert and oriented. Calm and controlled. Patient maintains fair eye contact. Flat affect. Patient denies anxiety and depression. Patient denies SI/HI/AH/VH and contracts for safety. Patient reports sleep and appetite are both good. Patient received and was compliant with scheduled medications; mouth check completed. Patient offered a mask and educated on importance of wearing a mask; patient declined. Patient denies any needs or concerns at this time. [id number]: Patient attending group. 1020: Patient resting quietly in bed with eyes closed. Respirations even and unlabored. Call light in reach. 1117: Patient ambulating in hallway, denies any needs or concerns. 1157: Patient in dining room eating lunch. Patient denies any needs or concerns at this time. 1250: Patient resting quietly in bed with eyes closed. Respirations even and unlabored. Call light in reach. 1340: Patient requested and received shower and hygiene supplies. 1420: Patient resting quietly in bed, easily awakened. Patient has been cooperative with staff. Attended group. Compliant with medications. Eats meals in dining room. Patient denies any needs or concerns at this time. 0030 Orders and labs reviewed, patient resting quiet in bed at beginning of shift, even resp 0620 Rested quiet overnight, appeared to sleep 10 hours between second and third shift charting, lying in bed quiet at present No MASK 1535 Assumed care of patient after receiving report. Patient sitting on side of bed in paper scrub top and PJpants at this time. 1540 Attempted interaction with patient and after answering his appetite was fine, patient declined to answer any other questions at this time and stated, if I need anything I will come to the office. This literary writer asked patient where office was and he pointed toward nursing station. Offered patient something to drink and patient declined at this time. Patient asked when supper was and was advised by this literary writer supper to be at approximately 1630. Patient in agreement. 1600 Temp. refused 1620 Eating supper in room at this time. 1705 In room in bed resting on left side at this time. 1755 Resting in room in bed with eyes closed on left side. 1825 Continues resting in room in bed with eyes closed at this time. 1920 Resting in room in bed with eyes closed at this time. 2015 Took HSMed without incident at this time. 2111 In room in bed resting supine with eyes closed at this time. 2150 Eyes closed resting in bed at this time. 2210 Resting in bed with eyes closed. 224 Continues resting in room with eyes closed at this time. Psychiatry Progress Note Patient Name: Leon Atkinson Admit Date: 3000704 MR #: [id number] : 2000 Perpetual Assessment Leon Atkinson is a 20 y.o. 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 Mother reports that he was doing relatively well, even asking for hugs and expressing his love for her. Three days ago, he spent the night wandering around all night outside without warm clothing. He was carrying a groundhog and asking neighbors for a hatchet so he could cut it up and eat it. Police returned him to his mother. The next night, he took off toward [place]. Denies hearing voices but he is obviously distracted by internal stimuli, also looking around as if he sees things. Has not been eating because of paranoid thoughts about his food. He is taking fluids. Mother reports poor sleep right before his run away behaviors. Denies suicidal and homicidal thinking. 08-02-2021: Leon has experienced periodic episodes of extreme agitation today. He has tried to charge the door to the unit and has tried to grab keys away from security guards. After prn medications, his speech and communicative capacity was actually improved. He continues to be too paranoid to eat most foods. Remains extremely paranoid. Less blocking.No as preoccupied with internal stimuli as he was at admission. Denies SI/HI. 08-03-2021: Leon has contracted not to try to escape so that he can wear his own clothes. He opposes all medications and some foods as sorcery which he defines as the combinations of simple ingredients to result in a complex substance. He states that Revelations prohibits the use of sorcery. He will not bend on this issue. 08-04-2021: Leon remains quite paranoid but his thinking is improving. He decided to take his Zyprexa and it seems to make a big difference in his agitation and his ability to communicate effectively. He is still not eating. Today is day 2 of a 3 day mu-ism fast. He is taking fluids. He says he wants to run as fast as he can to alleviate a feeling of agitation. He does not want to watch tv because he thinks a better use of his time would be to get myself together. He has refused at allow his mom to visit. No suicidal thoughts. He denies feeling depressed but he admits to feeling angry at completely random times. He also thinks he has been arrogant and prideful. Eye contact good. Blocking much improved. Much less evidence of internal distraction. 08-05-2021: Leon admits to feeling better today. He has showered. Compliant with medications. He continues to feel agitated now and then but not nearly so badly as at admission. He is still suspicious and dubious about many things. He is beginning to eat. Still doesn't want his mom to visit. He feels tired from medications and he doesn't like that feeling. No other side effects. 08-06-2021: Leon continues to be compliant with medications and he is beginning to want to be discharged. His recent bizarre behavior seems to be related to conflicting internal thought processes. Recently, his destructive ideas took precedence. He was trying to get away from his mother because he knows she will prevent him from doing things that reflect poor judgment. He continues to lack judgment, thinking it a sound idea to ask others for halfway by knocking on strangers' door and asking to cook his groundhog in their homes because he was hungry. He also thinks it is plausible to go to [facility] with a restorationism group, even though he cannot pay his way. Maybe they will just take me. He asked me if he should trust his mother. I replied that of all human beings, she has his best interest at heart. He agreed to meet with her prior to discharge. He still doubts that he is mentally ill. 08-07-2021: Leon has regressed some since yesterday. He wants to go home, but not to his mother's house. Then he agreed to temporarily do so. He seems to have ideas about taking off again once he is released. He was more reluctant to answer benign questions today. 08-08-2021: Leon was a little more open today. Saw him with his mom. He was very withdrawn at first but seemed to relax just a little as time went on. I brought up the plan of adding a second MCCOY and he did not object. He sill complains of occasional agitation. He remains very cautious. He does admit to having problems sorting out good ideas vs poor judgment. Eating better every day. P: Admit for patient safety and stabilization Suicide and unpredictable precautions Invega Trinza not due until 08-22. Add supplemental olanzapine 5 mg po or IM. Continue at 5 mg bid Looking into an MCCOY formulation for the Zyprexa as his compliance with oral meds is doubtful outside of the hospital PRN medications for anxiety, insomnia and agitation Monitor PO intake Internal medicine consult SW consult for collateral information and discharge planning Comorbid issues impacting my care plan include none. Following for paranoid delusions, very poor judgment, agitation, social withdrawal Interval History: Leon regained the progress of two days ago. He is at least superficially cooperative and he is more willing to discuss what is happening in his mind. He is neglecting his personal grooming again and seems to need prompting to do most things. Remains very paranoid. Awkward and withdrawn with his mother but he tolerated the visit well. Review of Systems: Constitutional, cardiac, pulmonary, neurologic, musculoskeletal, GI and systems reveiwed and negative except as noted above Physical Examination: Vital Signs: BP 119/83 (BP Location: Left arm, Patient Position: Sitting) Pulse 76 Temp 97.8 F (36.6 C) (Oral) Resp 16 Ht 5' 10 Wt 72.4 kg (159 lb 9.8 oz) SpO2 97% BMI 22.90 kg/m Mental Status Evaluation: General Appearance & Behavior: age appropiate, cooperative, minimally engaged and good eye contact Grooming & Hygiene: unkempt Psychomotor Activity: no psychomotor abnormalities or muscle atrophy noted Gait & Station stable gait and ability to rise from bed/chair without assistance Speech: diminished amount and slowed Flow of Thought: concrete Thought Associations: Intact Content of Thought: delusions and paranoia Mood: fine Affect: flat Insight: impaired Judgment: impaired Orientation: alert and oriented to person, place, time, and circumstances Memory: intact recent and remote Attention: adequate Concentration: reduced Language: intact Fund of Knowledge: estimated average intelligence Laboratory and Additional Data Reviewed: Laboratory 08/08/21 2:01 PM Medications 08/08/21 2:01 PM Transcriptions 08/08/21 2:01 PM Treatment options and alternatives reviewed with patient and family member. Risks, benefits, side effects of all psychiatric medications discussed with patient and family member and informed consent obtained. All questions were answered. 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 Schizophrenia, first episode, currently in partial remission ([facility]) 08/12/2018 Diagnosis Wyocena I: Schizophrenia Wyocena II: No diagnosis Wyocena III: Patient Active Problem List Diagnosis Date Noted Schizophrenia ([facility]) 02/02/2021 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 Schizophrenia, first episode, currently in partial remission ([facility]) 08/12/2018 Wyocena IV: other psychosocial or environmental problems Wyocena V: 40 Expected Discharge Date: ELOS: 5-7 Precautions Precautions: Suicide, Unpredictable Patient Presenting Issues: Patient's Primary Presenting Issue Patient's Primary Presenting Issue: Psychosis Psychosis Symptoms: Auditory hallucinations, Visual hallucinations, Paranoia, Disorganized Psychosis Treatment Goals: Reduction in psychotic symptoms and behaviors Days To Improvement Of Goal: 7 Psychosis Interventions: Medication management/evaluation, Medication education, Group psychoeducation, Handouts psychoeducation, Individual psychoeducation, Family education/meeting, Develop personal safety plan Status Of Goal: Unchanged Patient's Secondary Presenting Issue Patient's Secondary Presenting Issue: Mood instablilty Mood Instability Symptoms: Thelma Mood Instability Treatment Goals: reduction in hyperactivity and agitation, impulsiveness Days To Improvement Of Goal: 7 Mood Instability Interventions: Medication management/evaluation, Pain and symptom management, Medication education, Group psychoeduction, Handouts psychoeducation, Individual psychoeducation, Famiily education/meeting, Develop personal safety plan Status Of Goal: Unchanged Precautions Precautions: Suicide, Unpredictable Seclusion/Restraint Date none Interventions to reduce Seclusion/Restraint none Patient Strengths Patient Strengths: Family/friends, Housing, Intellectual abilities, Mental health services, Physical health Patient Limitations Patient Limitations: Patient is involuntary, Other (Comment) Discharge Needs Anticipated Facility Type: Psychiatric aftercare, [facility] Criteria For Discharge Criteria For Discharge: Goals met, Maximum benefit obtained Additional Comments: Patient was taken off 1:1 supervision on 08/07/2021. Patient taking medication and eating better. Patient attempts to go to groups but will go in and out of group Physician, Registered Nurse, Downstairs Maid, Adjunct Therapist included in treatment team discussion. Treatment team members present: Jodee Brown Brennan, Stacie Patient Signature Date Patient's Response To Treatment Plan: Physician Signature Date Patient's status/progress reviewed in morning safety huddle. Nursing reported that the patient slept for 8 hours, is eating noncontainer food, taking medication. Clinical team met and patient's case staffed. Present were: Jodee Brown, Jose Cruz Reinoso Patient's mother coming to meet with Kevin Carpio this morning. PT resting in bed at time of approach for group, not interested in joining. 0745 Pt sitting in dining room waiting for breakfast. Pt advises he slept ok when asked. Per report pt slept approximately 8 hours. Vitals obtained, pt denies pain. Pt denies needs. 0836 Pt resting in bed, awake and alert. Eye contact poor. Affect flat. Pt calm, preoccupied, and guarded. Pt denies anxiety and depression. Pt denies suicidal ideations, stating no, I would never hurt myself . Pt denies homicidal ideations, stating no, I would never hurt anyone . Pt denies auditory and visual hallucinations. Pt's responses to questions asked slightly delayed. Pt compliant taking scheduled medication, mouth check completed. Mask offered for covid precautions, education provided, pt declines. Pt remains in room. Denies needs. 1050 Pt resting in bed with eyes closed, respirations even and unlabored. 1125 Dr. Perez and pt's mother at bedside 1250 Pt resting in bed with eyes closed, respirations even and unlabored. 1345 Pt resting in bed with eyes closed, respirations even and unlabored. 0030 Orders and labs reviewed, patient resting quiet in bed at beginning of shift, even resp 0615 Rested quiet overnight, appeared to sleep 8 hours and remains resting in bed in room at present 1631 Patient is calm and cooperative. Patient appears depressed and affect is flat. Patient denies any pain. Patient denies any suicidal ideations. Patient not wearing a mask. 1750 Patient calm in room 1944 Patient resting quietly in bed, respirations normal 2128 Patient is calm, pleasant, and cooperative, medication compliant. Patient denies any snack or drink 2241 Patient resting quietly in bed, respirations normal. Patient has been calm and controlled during this shift Psychiatry Progress Note Patient Name: Leon Atkinson Admit Date: 3000704 MR #: [id number] : 2000 Perpetual Assessment Leon Atkinson is a 20 y.o. male presenting with paranoid delusions and bizarre behaviors Diagnosis & Plan/Recommendations PRINCIPAL DIAGNOSIS: Undifferentiated schizophrenia (HCC) * Undifferentiated schizophrenia (HCC) Assessment & Plan A: Leon has experienced a deterioration in his symptoms in the past week. Mother reports that he was doing relatively well, even asking for hugs and expressing his love for her. Three days ago, he spent the night wandering around all night outside without warm clothing. He was carrying a groundhog and asking neighbors for a hatchet so he could cut it up and eat it. Police returned him to his mother. The next night, he took off toward [place]. Denies hearing voices but he is obviously distracted by internal stimuli, also looking around as if he sees things. Has not been eating because of paranoid thoughts about his food. He is taking fluids. Mother reports poor sleep right before his run away behaviors. Denies suicidal and homicidal thinking. 08-02-2021: Leon has experienced periodic episodes of extreme agitation today. He has tried to charge the door to the unit and has tried to grab keys away from security guards. After prn medications, his speech and communicative capacity was actually improved. He continues to be too paranoid to eat most foods. Remains extremely paranoid. Less blocking.No as preoccupied with internal stimuli as he was at admission. Denies SI/HI. 08-03-2021: Leon has contracted not to try to escape so that he can wear his own clothes. He opposes all medications and some foods as sorcery which he defines as the combinations of simple ingredients to result in a complex substance. He states that Revelations prohibits the use of sorcery. He will not bend on this issue. 08-04-2021: Leon remains quite paranoid but his thinking is improving. He decided to take his Zyprexa and it seems to make a big difference in his agitation and his ability to communicate effectively. He is still not eating. Today is day 2 of a 3 day mu-ism fast. He is taking fluids. He says he wants to run as fast as he can to alleviate a feeling of agitation. He does not want to watch tv because he thinks a better use of his time would be to get myself together. He has refused at allow his mom to visit. No suicidal thoughts. He denies feeling depressed but he admits to feeling angry at completely random times. He also thinks he has been arrogant and prideful. Eye contact good. Blocking much improved. Much less evidence of internal distraction. 08-05-2021: Leon admits to feeling better today. He has showered. Compliant with medications. He continues to feel agitated now and then but not nearly so badly as at admission. He is still suspicious and dubious about many things. He is beginning to eat. Still doesn't want his mom to visit. He feels tired from medications and he doesn't like that feeling. No other side effects. 08-06-2021: Leon continues to be compliant with medications and he is beginning to want to be discharged. His recent bizarre behavior seems to be related to conflicting internal thought processes. Recently, his destructive ideas took precedence. He was trying to get away from his mother because he knows she will prevent him from doing things that reflect poor judgment. He continues to lack judgment, thinking it a sound idea to ask others for halfway by knocking on strangers' door and asking to cook his groundhog in their homes because he was hungry. He also thinks it is plausible to go to [facility] with a restorationism group, even though he cannot pay his way. Maybe they will just take me. He asked me if he should trust his mother. I replied that of all human beings, she has his best interest at heart. He agreed to meet with her prior to discharge. He still doubts that he is mentally ill. 08-07-2021: Leon has regressed some since yesterday. He wants to go home, but not to his mother's house. Then he agreed to temporarily do so. He seems to have ideas about taking off again once he is released. He was more reluctant to answer benign questions today. P: Admit for patient safety and stabilization Suicide and unpredictable precautions Invega Allysonza not due until 08-22. Add supplemental olanzapine 5 mg po or IM. Continue at 5 mg bid Looking into an MCCOY formulation for the Zyprexa as his compliance with oral meds is doubtful outside of the hospital PRN medications for anxiety, insomnia and agitation Monitor PO intake Internal medicine consult SW consult for collateral information and discharge planning Set up meeting with mom, tomorrow at 11am Comorbid issues impacting my care plan include none. Following for paranoid delusions, very poor judgment, bizarre behaviors, social isolation Interval History: Leon is a little more paranoid today. He remains overtly cooperative but lacks insight and seems to be biding his time until he can be released to follow his impulses again. Denies side effects from medications. Denies suicidal thoughts. Review of Systems: Constitutional, cardiac, pulmonary, neurologic, musculoskeletal, GI and systems reveiwed and negative except as noted above Physical Examination: Vital Signs: BP 116/76 (BP Location: Left arm, Patient Position: Sitting) Pulse 92 Temp 98.4 F (36.9 C) (Oral) Resp 18 Ht 5' 10 Wt 72.4 kg (159 lb 9.8 oz) SpO2 98% BMI 22.90 kg/m Mental Status Evaluation: General Appearance & Behavior: age appropiate, cooperative, minimally engaged and poor eye contact Grooming & Hygiene: unkempt Psychomotor Activity: psychomotor retardation Gait & Station stable gait and ability to rise from bed/chair without assistance Speech: slowed Flow of Thought: concrete Thought Associations: Intact Content of Thought: delusions and paranoia Mood: depressed Affect: flat Insight: impaired Judgment: impaired Orientation: alert and oriented to person, place, time, and circumstances Memory: intact recent and remote Attention: adequate Concentration: reduced Language: intact Fund of Knowledge: estimated average intelligence Laboratory and Additional Data Reviewed: Laboratory 08/07/21 3:34 PM Medications 08/07/21 3:34 PM Transcriptions 08/07/21 3:34 PM Treatment options and alternatives reviewed with patient. Risks, benefits, side effects of all psychiatric medications discussed with patient and informed consent obtained. All questions were answered. Christi Perez MD 08/07/2021 3:28 PM Observed the patient getting off 1:1 supervision and walking off to attend therapy group. Patient's mother (Rachel) called and left a message asking if her mother could attend meeting. I asked Dr. Perez if patient's mother could bring her mother to meeting tomorrow. Dr. Perez thought it best to just meet with the patient's mother. I called Rachel back and left her a message just the same. Goal/Warm UP: Pt walked in and out of group a multiple of times having his hands in his pockets and head down. At one point when he sat he responded to having a goal to be less irritated. He was sporadic in doing the stretching exercises, sometime getting up and walking out then turning around and coming back only to sit and stare at the floor. When group was finished, he asked can I be the last to leave? Pt receptive of answer when told that he could not. Pt remains paranoid and guarded. His appearance disheveled, unkempt and dressed in paper top and sweatpants. Patient's status/progress reviewed in morning safety huddle. Nursing reported that the patient 8.76 hours, rated Depression 5, has been answering questions, and is taking Zyprexa Nursing. Yesterday, this worker received a message from nursing that the patient had called his mother and told her about a meeting with Dr. Perez on Friday and hung up. I spoke with Dr. Perez regarding the matter and she knew nothing of a meeting but would meet with the patient's mother around 11:00 am on Friday. I called the patient's mother (Rachel) and advised her that Dr. Perez would meet with her Friday at 11:00 am. Rachel reported that she would be able to attend. 1:1 patient 0741: VS obtained. Shira neuropsychology service director sitting 1:1 with pt for pt safety. Pt is alert and oriented awake in bed. Calm and cooperative. Poor and avoidant eye contact. Flat affect. Suspicious, preoccupied, and withdrawn. Delayed speech. Pt does approach nurses station with appropriate requests. Pt is dressed in street clothes and paper scrub top, appears disheveled. Pt denies SI/HI/AH/VH and contracts safety with this staff. Pt appears to respond to internal stimuli. Paranoid delusions observed. Pt rates anxiety and depression both 0/10. Pt states he slept better and has a fair appetite. Pt received scheduled medication and took without difficulty. No medication noted upon oral cavity inspection. Encouraged pt to express needs to staff. Pt educated on importance of mask use. Pt opted to not wear mask at this time. 1100: Pt attending group. 1104: Pt gets up and walks out of group, then walks back to group frequently. 1130: Pt eating lunch in dining room. Calm and controlled. Pt no longer 1:1. 1245: Pt has new order from Dr. Perez to be able to have personal shoes during the day and to turn in at HS. Shoes brought to pt and pt states I don't want those, they are dirty. Shoes returned to pts locker. 1315: Pt resting in bed with eyes closed. Respirations even and unlabored. 1430: Pt walking in hallway. Calm and controlled. 2330: Patient observed resting in bed, resps even and unlabored, eyes closed, no signs of distress noted. Safety precautions remain in place. Per safety precautions patient begun resting in bed at: 2145 This RN sitting 1:1 continuous observation with this patient for this evening. 0330: Woke up, walked around in room, RN inquired if there was anything he needed, patient denied and returned to bed. 0630: Patient rested in bed this evening for around: 8 hours and 45 min, only interrupted once to use restroom. 1605 Patient is calm and cooperative answering questions. Patient reports depression 5/10. Patient's affect is flat. Patient denies any AH/VH. Patient denies any AH/VH. Patient denies any suicidal ideations. 1800 Patient calm and controlled, room 2057 Patient is calm and cooperative, medication compliant 223 Patient voided 3X this shift and drank approximately 28 ounces of water. Patient has been calm and controlled during this shift Psychiatry Progress Note Patient Name: Leon Atkinson Admit Date: 3000704 MR #: [id number] : 2000 Perpetual Assessment Leon Atkinson is a 20 y.o. male presenting with severe paranoid delusions, bizarre behaviors, agitation, thought blocking Diagnosis & Plan/Recommendations PRINCIPAL DIAGNOSIS: Undifferentiated schizophrenia (HCC) * Undifferentiated schizophrenia (HCC) Assessment & Plan A: Leon has experienced a deterioration in his symptoms in the past week. Mother reports that he was doing relatively well, even asking for hugs and expressing his love for her. Three days ago, he spent the night wandering around all night outside without warm clothing. He was carrying a groundhog and asking neighbors for a hatchet so he could cut it up and eat it. Police returned him to his mother. The next night, he took off toward [place]. Denies hearing voices but he is obviously distracted by internal stimuli, also looking around as if he sees things. Has not been eating because of paranoid thoughts about his food. He is taking fluids. Mother reports poor sleep right before his run away behaviors. Denies suicidal and homicidal thinking. 08-02-2021: Leon has experienced periodic episodes of extreme agitation today. He has tried to charge the door to the unit and has tried to grab keys away from security guards. After prn medications, his speech and communicative capacity was actually improved. He continues to be too paranoid to eat most foods. Remains extremely paranoid. Less blocking.No as preoccupied with internal stimuli as he was at admission. Denies SI/HI. 08-03-2021: Leon has contracted not to try to escape so that he can wear his own clothes. He opposes all medications and some foods as sorcery which he defines as the combinations of simple ingredients to result in a complex substance. He states that Revelations prohibits the use of sorcery. He will not bend on this issue. 08-04-2021: Leon remains quite paranoid but his thinking is improving. He decided to take his Zyprexa and it seems to make a big difference in his agitation and his ability to communicate effectively. He is still not eating. Today is day 2 of a 3 day mu-ism fast. He is taking fluids. He says he wants to run as fast as he can to alleviate a feeling of agitation. He does not want to watch tv because he thinks a better use of his time would be to get myself together. He has refused at allow his mom to visit. No suicidal thoughts. He denies feeling depressed but he admits to feeling angry at completely random times. He also thinks he has been arrogant and prideful. Eye contact good. Blocking much improved. Much less evidence of internal distraction. 08-05-2021: Leon admits to feeling better today. He has showered. Compliant with medications. He continues to feel agitated now and then but not nearly so badly as at admission. He is still suspicious and dubious about many things. He is beginning to eat. Still doesn't want his mom to visit. He feels tired from medications and he doesn't like that feeling. No other side effects. 08-06-2021: Leon continues to be compliant with medications and he is beginning to want to be discharged. His recent bizarre behavior seems to be related to conflicting internal thought processes. Recently, his destructive ideas took precedence. He was trying to get away from his mother because he knows she will prevent him from doing things that reflect poor judgment. He continues to lack judgment, thinking it a sound idea to ask others for halfway by knocking on strangers' door and asking to cook his groundhog in their homes because he was hungry. He also thinks it is plausible to go to [facility] with a restorationism group, even though he cannot pay his way. Maybe they will just take me. He asked me if he should trust his mother. I replied that of all human beings, she has his best interest at heart. He agreed to meet with her prior to discharge. He still doubts that he is mentally ill. P: Admit for patient safety and stabilization Suicide and unpredictable precautions Invega Jama not due until 08-22. Add supplemental olanzapine 5 mg po or IM. Continue at 5 mg bid PRN medications for anxiety, insomnia and agitation Monitor PO intake Internal medicine consult SW consult for collateral information and discharge planning Set up meeting with mom Comorbid issues impacting my care plan include none. Following for paranoid delusions, agitation, poor judgment Interval History: Leon continues to be quite impaired by his paranoid psychosis, although he is much improved since admission. Mom fears he will stop his oral meds at home and endanger himself again without hospital-level supervision. Planning a meeting with Mom and patient together for careful discharge planning. Review of Systems: Constitutional, cardiac, pulmonary, neurologic, musculoskeletal, GI and systems reveiwed and negative except as noted above Physical Examination: Vital Signs: BP 126/86 Pulse (!) 115 Temp 97.6 F (36.4 C) (Temporal) Resp 12 Ht 5' 10 Wt 72.4 kg (159 lb 9.8 oz) SpO2 98% BMI 22.90 kg/m Mental Status Evaluation: General Appearance & Behavior: age appropriate, pleasant, cooperative, good eye contact Grooming & Hygiene: street clothes Psychomotor Activity: no psychomotor abnormalities or muscle atrophy noted Gait & Station stable gait and ability to rise from bed/chair without assistance Speech: slowed Flow of Thought: linear and goal directed Thought Associations: Intact Content of Thought: No evidence of SI/HI, delusions, paranoia and religiously preoccupied Mood: frustrated Affect: flat Insight: impaired Judgment: impaired Orientation: alert and oriented to person, place, time, and circumstances Memory: intact recent and remote Attention: intact Concentration: reduced Language: intact Fund of Knowledge: estimated average intelligence Laboratory and Additional Data Reviewed: Laboratory 08/06/21 4:07 PM Medications 08/06/21 4:07 PM Transcriptions 08/06/21 4:07 PM Treatment options and alternatives reviewed with patient. Risks, benefits, side effects of all psychiatric medications discussed with patient and informed consent obtained. All questions were answered. Christi Perez MD 08/06/2021 4:00 PM This worker stopped at patient's room. Patient still in 1:1 supervision with nursing outside of patient's door. I went into the patient;s room. Patient was resting bed on his side. Patient was awake and sat up when I walked into the room. Asked patient how he was doing with no response. Patient was at least looking at this worker. I reminded the patient of who I was and what my roles was. When asked, the patient did report he was taking medication. Encouraged the patient to continue. I asked the patient if he needed anything from nursing and there was no response. As I was leaving, I told the the patient to have a good day andover heard a response of thank you . This worker returned a call to the patient's mother (Rachel/Katie). Rachel inquiring if there is a step down facility the patient could go to prior to coming home. Rachel reported concerns that the patient will come home and then has to go right back in the hospital. Advised Rachel that the patient is taking medication more regularly . Rachel reports patient might be taking Zyprexa in hospital currrently, but when he gets home he will not be compliant with it as he does not like side effects, especially weight gain. Rachel reported that she would like the patient to go into another inpatient facility prior to coming home. This worker advised Rachel that the patient is currently inpatient and when discharged, he cannot just go right into another inpatient facility. This worker advised Rachel that I would call [facility] to see if they have any stabilization resources in [facility] that they use with their adult mental health population. This worker called [facility] and left a message with Dyllan Frye (Direct Support Staff Member of [facility]) requesting any information he might have regarding stablization units in [facility] or [facility]. This worker also called the patient's [facility] housing case manager ( Shae- [phone]) and left her a message requesting any information relative to [facility] stabilization units in [facility] or [facility]. PT resting soundly in bed, did not wake to being addressed. Patient's status/progress reviewed in [facility]. Nursing reported that the patient slept 7 hours , is taking Zyprexa, remain watchful. Initial clinical faxed to [facility] 08/02 with no response. Faxed again today. 0730: Patient sitting in room. Denies any needs or concerns at this time. 1:1 caregiver present. 0820: Patient sitting in room. 1:1 caregiver present. Patient denies any needs or concerns at this time. 0845: Patient pacing in hallways, flat affect. Fair eye contact. Patient stops and stairs at this nurse when asking questions, responses delayed, patient appears to be responding to internal stimuli. Patient refused VS and scheduled medication. Patient denies anxiety and depression. Patient denies SI/HI/AH/VH, by nodding head no. Patient remains watchful. Denies any needs or concerns at this time. 1:1 caregiver present. 0950: Patient resting in bed with eyes closed. 1040: Patient resting quietly in bed with eyes closed. Respirations even and unlabored. Call light in reach. 1:1 caregiver present. 1150: Patient in room talking with Dr. Perez. 1225: Patient requested and received zyprexa, see MAR; mouth check completed. 1320: Patient resting quietly in bed. 1:1 caregiver present. 1425: Patient requested and received PRN lorazepam for c/o agitation, see MAR; mouth check completed. Patient has been cooperative with staff. Refused breakfast. Ate 25% of lunch. Patient drinks water from tap in room through out the day. 1: caregiver present with patient this shift. 23:30 This staff sitting one to one with patient tonight. He is resting on side with even respirations. 00:45 Pt up to use the restroom, does not turn light on 03:15 Pt gets up occasionally to get cups of water from the sink 06:45 Pt awake, goes to the bathroom, gets more cups of water from sink. Sitting cross-legged on the bed. Pt is staring, states no to multiple questions asking if he needs anything to eat or drink. He plays with the button for the blinds. 07:15 Pt states I need to throw this away with paper towel in hand. He goes to lounge to throw it away, then pt states I want to walk, Pt walking the unit with this nurse nearby. Pt is staring at exit door to crossover as if contemplating doing something but continues to walk. Pt stops at each exit door and stares at it briefly before moving on with his walk. Pt then returns to room and sits cross-legged on bed once again. Pt is sitting in dark on his bed. 0030 Orders and labs reviewed, patient resting quiet in bed at time of writing, quiet when awake, watchful, one to one monitoring maintained 0615 Has had a quiet night, appeared to sleep 7 hours, one to one precautions maintained Patient looked up at me from his bed and says Patrick loves you. I said Thank you Patrick loves you too. He became wide eyed. I said He loves us both. Patient frozen with wide eyes did not say anything further. After a minute he rolled over in bed. He did not interact with this nurse anymore at this time. Psychiatry Progress Note Patient Name: Leon Atkinson Admit Date: 3000704 MR #: [id number] : 2000 Perpetual Assessment Leon Atkinson is a 20 y.o. male presenting with severe paranoid psychosis, bizarre behaviors and agitation. Diagnosis & Plan/Recommendations PRINCIPAL DIAGNOSIS: Undifferentiated schizophrenia (HCC) * Undifferentiated schizophrenia (HCC) Assessment & Plan A: Leon has experienced a deterioration in his symptoms in the past week. Mother reports that he was doing relatively well, even asking for hugs and expressing his love for her. Three days ago, he spent the night wandering around all night outside without warm clothing. He was carrying a groundhog and asking neighbors for a hatchet so he could cut it up and eat it. Police returned him to his mother. The next night, he took off toward [place]. Denies hearing voices but he is obviously distracted by internal stimuli, also looking around as if he sees things. Has not been eating because of paranoid thoughts about his food. He is taking fluids. Mother reports poor sleep right before his run away behaviors. Denies suicidal and homicidal thinking. 08-02-2021: Leon has experienced periodic episodes of extreme agitation today. He has tried to charge the door to the unit and has tried to grab keys away from security guards. After prn medications, his speech and communicative capacity was actually improved. He continues to be too paranoid to eat most foods. Remains extremely paranoid. Less blocking.No as preoccupied with internal stimuli as he was at admission. Denies SI/HI. 08-03-2021: Leon has contracted not to try to escape so that he can wear his own clothes. He opposes all medications and some foods as sorcery which he defines as the combinations of simple ingredients to result in a complex substance. He states that Revelations prohibits the use of sorcery. He will not bend on this issue. 08-04-2021: Leon remains quite paranoid but his thinking is improving. He decided to take his Zyprexa and it seems to make a big difference in his agitation and his ability to communicate effectively. He is still not eating. Today is day 2 of a 3 day mu-ism fast. He is taking fluids. He says he wants to run as fast as he can to alleviate a feeling of agitation. He does not want to watch tv because he thinks a better use of his time would be to get myself together. He has refused at allow his mom to visit. No suicidal thoughts. He denies feeling depressed but he admits to feeling angry at completely random times. He also thinks he has been arrogant and prideful. Eye contact good. Blocking much improved. Much less evidence of internal distraction. 08-05-2021: Leon admits to feeling better today. He has showered. Compliant with medications. He continues to feel agitated now and then but not nearly so badly as at admission. He is still suspicious and dubious about many things. He is beginning to eat. Still doesn't want his mom to visit. He feels tired from medications and he doesn't like that feeling. No other side effects. P: Admit for patient safety and stabilization Suicide and unpredictable precautions Invega Trinza not due until 08-22. Add supplemental olanzapine 5 mg po or IM. Continue at 5 mg bid PRN medications for anxiety, insomnia and agitation Monitor PO intake Internal medicine consult SW consult for collateral information and discharge planning Comorbid issues impacting my care plan include none. Following for paranoid delusions, internal stimuli, blocking, agitation, bizarre behaviors, neglect of self-care Interval History: Leon is significantly improved at this time. He remains paranoid but cooperative. He is finally taking in PO nutrition. He took a shower, is more conversant and gradually a bit more cooperative. Remains paranoid, withdrawn and not yet ready to succeed in the community. His only side effects are sedation. Review of Systems: Constitutional, cardiac, pulmonary, neurologic, musculoskeletal, GI and systems reveiwed and negative except as noted above Physical Examination: Vital Signs: BP 126/86 Pulse (!) 115 Temp 97.6 F (36.4 C) (Infrared) Resp 12 Ht 5' 10 Wt 72.4 kg (159 lb 9.8 oz) SpO2 98% BMI 22.90 kg/m Mental Status Evaluation: General Appearance & Behavior: age appropriate, pleasant, cooperative, good eye contact Grooming & Hygiene: neat and clean and street clothes Psychomotor Activity: no psychomotor abnormalities or muscle atrophy noted Gait & Station stable gait and ability to rise from bed/chair without assistance Speech: slowed Flow of Thought: concrete Thought Associations: Intact Content of Thought: No evidence of SI/HI and paranoia Mood: fine Affect: flat Insight: impaired Judgment: limited Orientation: alert and oriented to person, place, time, and circumstances Memory: intact recent and remote Attention: adequate Concentration: reduced Language: intact Fund of Knowledge: estimated average intelligence Laboratory and Additional Data Reviewed: Laboratory 08/05/21 5:46 PM Medications 08/05/21 5:46 PM Transcriptions 08/05/21 5:46 PM Treatment options and alternatives reviewed with patient. Risks, benefits, side effects of all psychiatric medications discussed with patient and informed consent obtained. All questions were answered. Christi Perez MD 08/05/2021 5:38 PM 1531- Client laying on bed with eyes open. Approached client. Introduced self to client. Client dressed in paper scrub top and own sweatpants. Client appears clean with no body odor noted. Client makes fair eye contact and responds with a minimum of words and delayed in conversation. Client is seclusive to room. Client is independent with ADLs and is refusing meals. Client appears empty, guilty, and sad. Client denies SI/HI/SIB, stating, I don't want to hurt or kill myself or anyone else. When asked about hallucinations, client states, I'm not hallucinating. Client denies any needs at this time. Client left laying in bed with 1:1 caregiver present. 2011- Knocked on client's door. Client awake. Identified client via wristband as client states, You should know who I am when asked for name and date. Explained why identifiers are used and client asked, Do I have to take this? Reinforced medication education and benefits of medication to client. Client took oral disintegrating tab and refused water. No medication noted upon inspection of oral cavity. Client denies any needs at this time. Client left resting comfortably with adequate linen and 1:1 caregiver present. 1 : 1 Companionship continues for safety . Special precaution checks maintained for offer information of activity and location plus can obtain other information Alert and Orientation: Behavior: Thought process, mood, affect, speech : impaired paranoid , suspicious ,no verbal acknowledgement 1530 Report received from shift change and from 1:1 liquified natural gas specialist . Found pt lying in bed awake and sat up when he heard previous sitter and this literary writer talking . Introduced self and explained I would be hanging out with this evening . Pt looked this way but did not return greeting . Pt went to sink and washed hands turning toward door stated I need to throw this away ( paper towel ) and proceeded to walk to lounge to trash can then walked back to room to lie back down 1555 In bed unsure of wanting blanket on or off , offered to help delined offer . Up to sink for a drink then back down to bed to rest onright side under blanket 1620 Got up and walked to kitchen window to pecan picker dinner noah going back to room sitting on side of bed to eat . 1625 Will eat something from tray set it down on chair only to return and eat another couple bites - has walked to doorway to see if return cart is out in hallway 1630 Pt ate several bites of mashed potatoes and corn 1630 Voided in restroom 1633 Returned to cart - made aware if needing to snack on that is packaged to let me or other staff , pt made momentary eye contact - no verbal response before going back to lie in bed - supine position covered with blanket 1725 Pt remains awake while resting in bed repositioning self occasionally 1816 up to sink for a drink 194 Up ambulating in room 1999 Pt offered bedtime snack OJ , uncrustables ( PBJ 's ) declining , asked if wanted some for later being left on sink counter ,again pt declined - explained importance of eating and drinking 2056 resting awake in bed 2112 Up in restroom -asked if wanted a snack -shook head no 0 Opening door asked to walk up to desk for a cup of water 2229 Awake resting in bed 8 resting on right side , awake 0800 Pt cont to pace in hallway, flat affect, no eye contact, refuses to speak to staff, refuses to eat meals, refuses to take medication, refuses to allow staff to obtain VS, resp even and unlabored, no s/sx of distress/discomfort noted at this time, in safe stable condition. 1105 Pt requested to speak with Megan Therapist, with other pt but made aware, requested to take Zyprexa, mouth check performed, asked pt how he was doing I'm doing better , asked pt if I could talk to him and ask him some questions, I would really just like to talk to Megan. 1248 Quite, responding to few questions, pt talks about how he still has two grandparent on his fathers side alive, he does not currently have a job but used to, did not wish to disclose, when asked if he did not trust me he nodded his head yes, asked he was afraid of me nodded no, would not answer anymore questions. 1440 Drinking water directly from faucet, refuses to drink anything provided, did eat a single sandwich. Bathroom 4 times, drank 1400 ml. 0300 Assumed care of patient from 0300 until 0730. Patient is resting quietly in bed. 0500 Patient continues resting quietly in bed with even respirations. 0600 Patient has rested quietly in bed approximately 5.5 hours to present.Will continue to observe patient this shift. 0000: Patient is resting quietly in bed, eyes closed, respirations even and unlabored. He remains 1:1 for safety. 0100: Patient up adjusting his blankets in bed. He looks at this nurse suspicious. He covers up and turns over facing the wall. Denies needs at this time. 1:1 maintained. 0200: Patient is laying in bed quietly, eyes closed, respirations even and unlabored. 1:1 maintained. 0300: Patient continues resting quietly in bed. He remains 1:1 for safety. 1546- Knocked on client's door. Client awake and pacing in room. Introduced self to client. Client dressed in paper scrub top and sweat pant bottoms. Client appears disheveled with mild body odor noted. Client makes both staring and avoidant eye contact. Client is seclusive to room. Client interacts appropriately with staff though is delayed in conversation. Client is independent with ADLs and refuses food due to being on a religoius fast . Client denies SI/HI/SIB stating, I don't want to kill or hurt myself or anyone else. Client denies AVH though his conversation involves frequent long pauses where client appears to be attending to internal stimuli. Client appears flat, empty, and uninterested. Client denies any current needs at this time. Client left pacing in his room with 1:1 caregiver. 2031- Client awake and resting in bed. Identified client by name, , and wristband. Administered medication as per physician order. Client tolerated medication well. This nurse stayed with client until medication fully dissolved and no medication noted upon inspection of oral cavity. Client denied any further needs. Client left resting comfortably with adequate linen and 1:1 caregiver present. Psychiatry Progress Note Patient Name: Leon Atkinson Admit Date: 3000704 MR #: [id number] : 2000 Perpetual Assessment Leon Atkinson is a 20 y.o. male presenting with an exacerbation of his paranoid schizophrenia, despite compliance with IM Invega Trinza. Diagnosis & Plan/Recommendations PRINCIPAL DIAGNOSIS: Undifferentiated schizophrenia (HCC) * Undifferentiated schizophrenia (HCC) Assessment & Plan A: Leon has experienced a deterioration in his symptoms in the past week. Mother reports that he was doing relatively well, even asking for hugs and expressing his love for her. Three days ago, he spent the night wandering around all night outside without warm clothing. He was carrying a groundhog and asking neighbors for a hatchet so he could cut it up and eat it. Police returned him to his mother. The next night, he took off toward [place]. Denies hearing voices but he is obviously distracted by internal stimuli, also looking around as if he sees things. Has not been eating because of paranoid thoughts about his food. He is taking fluids. Mother reports poor sleep right before his run away behaviors. Denies suicidal and homicidal thinking. 08-02-2021: Leon has experienced periodic episodes of extreme agitation today. He has tried to charge the door to the unit and has tried to grab keys away from security guards. After prn medications, his speech and communicative capacity was actually improved. He continues to be too paranoid to eat most foods. Remains extremely paranoid. Less blocking.No as preoccupied with internal stimuli as he was at admission. Denies SI/HI. 08-03-2021: Leon has contracted not to try to escape so that he can wear his own clothes. He opposes all medications and some foods as sorcery which he defines as the combinations of simple ingredients to result in a complex substance. He states that Revelations prohibits the use of sorcery. He will not bend on this issue. 08-04-2021: Leon remains quite paranoid but his thinking is improving. He decided to take his Zyprexa and it seems to make a big difference in his agitation and his ability to communicate effectively. He is still not eating. Today is day 2 of a 3 day mu-ism fast. He is taking fluids. He says he wants to run as fast as he can to alleviate a feeling of agitation. He does not want to watch tv because he thinks a better use of his time would be to get myself together. He has refused at allow his mom to visit. No suicidal thoughts. He denies feeling depressed but he admits to feeling angry at completely random times. He also thinks he has been arrogant and prideful. Eye contact good. Blocking much improved. Much less evidence of internal distraction. P: Admit for patient safety and stabilization Suicide and unpredictable precautions Invega Trinza not due until 08-22. Add supplemental olanzapine 5 mg po or IM. Continue at 5 mg bid PRN medications for anxiety, insomnia and agitation Monitor PO intake Internal medicine consult SW consult for collateral information and discharge planning Comorbid issues impacting my care plan include none. Following for paranoid delusions, agitation, insomnia, hallucinations Interval History: Leon becomes a little more reality-oriented daily. He now understands the need to stay here until he is stable. He is able to describe his internal experience much more clearly. He is carefully trying recommended medications. Hygiene remains poor which is unusual for him when he is mentally well. No aggression. Review of Systems: Constitutional, cardiac, pulmonary, neurologic, musculoskeletal, GI and systems reveiwed and negative except as noted above Physical Examination: Vital Signs: BP 126/86 Pulse (!) 115 Temp 97.6 F (36.4 C) (Infrared) Resp 12 Ht 5' 10 Wt 72.4 kg (159 lb 9.8 oz) SpO2 98% BMI 22.90 kg/m Mental Status Evaluation: General Appearance & Behavior: age appropriate, pleasant, cooperative, good eye contact Grooming & Hygiene: hospital gown, unkempt and poor hygeine Psychomotor Activity: no psychomotor abnormalities or muscle atrophy noted Gait & Station stable gait and ability to rise from bed/chair without assistance Speech: normal rate, rhythym, volume, and spontaneity Flow of Thought: linear and goal directed Thought Associations: Intact Content of Thought: No evidence of SI/HI, delusions and paranoia Mood: angry Affect: flat Insight: impaired Judgment: impaired Orientation: alert and oriented to person, place, time, and circumstances Memory: intact recent and remote Attention: adequate Concentration: reduced Language: intact Fund of Knowledge: estimated average intelligence Laboratory and Additional Data Reviewed: Laboratory 08/04/21 2:05 PM Medications 08/04/21 2:05 PM Transcriptions 08/04/21 2:05 PM Treatment options and alternatives reviewed with patient. Risks, benefits, side effects of all psychiatric medications discussed with patient and informed consent obtained. All questions were answered. Christi Perez MD 08/04/2021 1:51 PM 0750 Patient is paranoid . Patient appears anxious. RN unable to assess for AH/VH, as patient not always responding to questions. Patient is unpredictable. Patient offered food and drink. Patient declined any drink or food. Patient refused VS. Patient not wearing a mask. Patient remains in paper scrubs and a 1:1 Patient not wearing a mask. 0930 Patient states I will eat starting tomorrow night. Patient offered can have food and drink now if they change their mind. 1025 Patient calm sitting in dining area 1106 Patient offered water, patient declined. Sherry NURSE WOUND CARE reported patient has drank 5 cups of water. Patient has drank approximately 40 oz Patient reports has voided 3X and urine is light yellow. Patient unwilling to urinate in a urinal for measurement. 1257 Patient given Zyprexa 5 mg per patient request. Patient had refused this scheduled medication this AM. See AUG 1319 Patient offered food and drink. Patient declined. 1430 Patient has drank 16 oz of water bringing total to approximately 56 oz per this shift. Patient voided 3X bringing total voids this shift to 6. 1435 Patient wearing own bottoms and paper scrub top. RN could not locate a medium men's shirt from clothing closet. RN recommended patient have their mom bring in clothing for them 2330 - Special precautions continue - see flow sheet for observations and documentation. Patient currently resting quietly in bed.1:1 continues. 0300-Continues to rest quietly in bed. 0600- Patient appears to have rested approximately 8 hours to present. Patient remains in bed resting quietly at this time. 0640-Patient awake ambulatory to nurses station for request of his clothing. Explained that staff would clarify such with the doctor. Patient offered food and fluids but declined.Patient is delayed and watchful offering 1-2 word responses. Patient returned to room area with no other concerns voiced. 160- Client at nurse's station. Introduced self to client. Client does not reply. Client dressed in paper scrubs though he has been offered his own clothing. Client appears disheveled with no body odor noted. Client makes appropriate eye contact and is delayed in conversation. Client is seclusive to room. Client interacts minimally with staff and peers. Client refused dinner and is independent with ADLs. Client does not answer when asked about suicidal ideation, homicidal ideation, and audio/visual hallucinations. Client attending while this nurse speaks with him, he looks at unseen things and has a difficult time formulating replies when he does reply. Client appears blunted, preoccupied, exit seeking, and paranoid. Client left heading down hallway with 1:1 staff in arms length. 2021- Knocked on client's door. Client awake. Client refused to state name and , checked wristband. Client refused medication, shaking his head. Tried to reinforce education and client continued shaking his head. Client also refused snack by shaking head no. Client left resting comfortably with 1:1 staff in arms length. Psychiatry Progress Note Patient Name: Leon Atkinson Admit Date: 3000704 MR #: [id number] : 2000 Perpetual Assessment Leon Atkinson is a 20 y.o. male presenting with a severe paranoid psychosis Diagnosis & Plan/Recommendations PRINCIPAL DIAGNOSIS: Undifferentiated schizophrenia (HCC) * Undifferentiated schizophrenia (HCC) Assessment & Plan A: Leon has experienced a deterioration in his symptoms in the past week. Mother reports that he was doing relatively well, even asking for hugs and expressing his love for her. Three days ago, he spent the night wandering around all night outside without warm clothing. He was carrying a groundhog and asking neighbors for a hatchet so he could cut it up and eat it. Police returned him to his mother. The next night, he took off toward [place]. Denies hearing voices but he is obviously distracted by internal stimuli, also looking around as if he sees things. Has not been eating because of paranoid thoughts about his food. He is taking fluids. Mother reports poor sleep right before his run away behaviors. Denies suicidal and homicidal thinking. 08-02-2021: Leon has experienced periodic episodes of extreme agitation today. He has tried to charge the door to the unit and has tried to grab keys away from security guards. After prn medications, his speech and communicative capacity was actually improved. He continues to be too paranoid to eat most foods. Remains extremely paranoid. Less blocking.No as preoccupied with internal stimuli as he was at admission. Denies SI/HI. 08-03-2021: Leon has contracted not to try to escape so that he can wear his own clothes. He opposes all medications and some foods as sorcery which he defines as the combinations of simple ingredients to result in a complex substance. He states that Revelations prohibits the use of sorcery. He will not bend on this issue. P: Admit for patient safety and stabilization Suicide and unpredictable precautions Invega Trinza not due until 08-22. Add supplemental olanzapine 5 mg po or IM. Increase to 5 mg bid PRN medications for anxiety, insomnia and agitation Monitor PO intake Internal medicine consult SW consult for collateral information and discharge planning Comorbid issues impacting my care plan include none. Following for paranoid delusions, hallucinations, thought blocking, agitation, bizarre behaviors Interval History: Leon remains severely delusional. However, he is much less agitated and he is now conversant. Good eye contact. Flat affect. He is stubbornly adherent to his paranoid ideas and will accept no other point of view at this time. I will get permission from his guardian to force medications, if necessary. However, his ability to trust others and work in a therapeutic alliance is so fragile, I would rather avoid use of force. Some improvement seen. Review of Systems: Constitutional, cardiac, pulmonary, neurologic, musculoskeletal, GI and systems reveiwed and negative except as noted above Physical Examination: Vital Signs: BP 126/86 Pulse (!) 115 Temp 98.2 F (36.8 C) (Oral) Resp 12 Ht 5' 10 Wt 72.4 kg (159 lb 9.8 oz) SpO2 98% BMI 22.90 kg/m Mental Status Evaluation: General Appearance & Behavior: age appropiate, cooperative, minimally engaged, defensive and good eye contact Grooming & Hygiene: unkempt and poor hygeine Psychomotor Activity: no psychomotor abnormalities or muscle atrophy noted Gait & Station stable gait and ability to rise from bed/chair without assistance Speech: diminished amount, soft spoken and terse Flow of Thought: concrete Thought Associations: Derailment Content of Thought: delusions and paranoia Mood: better Affect: flat Insight: impaired Judgment: impaired Orientation: alert and oriented to person, place, time, and circumstances Memory: intact recent and remote Attention: adequate Concentration: reduced Language: intact Fund of Knowledge: estimated average intelligence Laboratory and Additional Data Reviewed: Laboratory 08/03/21 6:02 PM Medications 08/03/21 6:02 PM Transcriptions 08/03/21 6:02 PM Treatment options and alternatives reviewed with patient. Risks, benefits, side effects of all psychiatric medications discussed with patient and informed consent obtained. All questions were answered. Christi Perez MD 08/03/2021 5:55 PM Attempted to make contact with pt to complete BHT assessment. Circus Trainer spoke with Toni Joseph LPN to get update on pt status. MAIL CARRIERS SUPERVISOR shared that pt had not required PRN medication to this point in time. Circus Trainer asked if pt was appropriate to participate in assessment to which MAIL CARRIERS SUPERVISOR cited that pt would only provided response of no to any question asked. Circus Trainer determined that pt continues to not be appropriate to assess at this time, thus pt BEH will continue to be monitored and pt assessed when appropriate. Patient;s case staffed in clinical team meeting. Present were: Belinda Brown Brennan, Amy. Patient refusing medication, not eating, and unpredictable. Behavioral Health Treatment Plan Update Date: 08/03/2021 Time: 10:42 AM Patient Name: Leon Atkinson Date of : 2000 Sex: Male Patient Active Problem List Diagnosis Date Noted Schizophrenia ([facility]) 02/02/2021 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 Schizophrenia, first episode, currently in partial remission ([facility]) 08/12/2018 Diagnosis Wyocena I: Schizophrenia Wyocena II: No diagnosis Wyocena III: Patient Active Problem List Diagnosis Date Noted Schizophrenia ([facility]) 02/02/2021 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 Schizophrenia, first episode, currently in partial remission ([facility]) 08/12/2018 [place]ena IV: other psychosocial or environmental problems Wyocena V: 41-50 serious symptoms Expected Discharge Date: ELOS: 5-7 Precautions Precautions: Suicide, Unpredictable Patient Presenting Issues: Patient's Primary Presenting Issue Patient's Primary Presenting Issue: Psychosis Psychosis Symptoms: Auditory hallucinations, Visual hallucinations, Paranoia, Disorganized Psychosis Treatment Goals: Reduction in psychotic symptoms and behaviors Days To Improvement Of Goal: 7 Psychosis Interventions: Medication management/evaluation, Medication education, Group psychoeducation, Handouts psychoeducation, Individual psychoeducation, Family education/meeting, Develop personal safety plan Status Of Goal: Unchanged Patient's Secondary Presenting Issue Patient's Secondary Presenting Issue: Mood instablilty Mood Instability Symptoms: Thelma Mood Instability Treatment Goals: reduction in hyperactivity and agitation, impulsiveness Days To Improvement Of Goal: 7 Mood Instability Interventions: Medication management/evaluation, Pain and symptom management, Medication education, Group psychoeduction, Handouts psychoeducation, Individual psychoeducation, Famiily education/meeting, Develop personal safety plan Status Of Goal: Unchanged Precautions Precautions: Suicide, Unpredictable Seclusion/Restraint Date none Interventions to reduce Seclusion/Restraint none Patient Strengths Patient Strengths: Family/friends, Housing, Intellectual abilities, Mental health services, Physical health Patient Limitations Patient Limitations: Patient is involuntary, Other (Comment) Discharge Needs Anticipated Facility Type: Psychiatric aftercare, Community mental health Criteria For Discharge Criteria For Discharge: Goals met, Maximum benefit obtained Additional Comments: Patient refusing medication, not eating, unpredictable. Patient will return home at discharge and followup with Dr. Perez/ Physician, Registered Nurse, Downstairs Maid, Adjunct Therapist included in treatment team discussion. Treatment team members present: Jose Cruz Brown Shante, Amy Patient Signature Date Patient's Response To Treatment Plan: Physician Signature Date Patient's status/progress reviewed in morning safety huddle. Nursing reported that the patient slept 6 hours, remains watchful, paranoid. Patient refusing Zyprexa and Trazodone. Patient not eating but drinking water.. I stopped at the patient's room. Nurse Toni sitting outside the patient's room. Door cracked, patient sitting on bed singing (nonsensically). 0730 - Pt sitting on bed at this time staring out window. Toni SERRANO sitting 1:1 with pt. 0737 - Pt to nurses station at this time, states I have chapstick in my coat pocket. Could I please use this? Provided this to pt at this time, pt used chapstick appropriately and returned to this nurse to be placed back in [facility]. Asked pt how he is feeling this morning, pt states good. Asked pt if he slept well last night, pt states I did. Encouraged pt breakfast is here and encouraged pt to eat breakfast out of room, pt states I don't eat breakfast. Offered pt water, pt declined. Attempted to obtain vital signs, pt refused at this time, stating no repeatedly. Toni SERRANO remains 1:1 with pt. 0806 - Pt at nurses station at this time requesting a copy of patient rights paperwork, Tigist MELÉNDEZ provided to pt at this time. Pt asking to see his pink slip, advised pt he is signed into the unit voluntarily as his mother, Rachel, is his legal guardian. Pt asks do you have proof that she is my guardian? Advised pt yes we do have guardianship paperwork, showed this paper to pt and pt attempted to grab paper from this writers hand. Guardianship paperwork returned to chart, pt ambulates away from nurses station and returns to his room. Toni SERRANO remains 1:1 with pt. 0852 - Pt in room at this time singing no to himself loudly. Toni SERRANO remains 1:1 with pt. This literary writer advised pt he has Zyprexa due at this time, pt states oh, I can't take that. Asked pt what makes him say this, pt states it's against my samaritan. Pt reports his samaritan is christiantiy. Christians can't take medications. Attempted to discuss need for medication with pt, pt begins singing no, no, nooo again. 0950 - Pt in room at this time, signing no, no, nooo very loudly to self. Toni SERRANO remains 1:1 with pt. Toni SERRANO reports pt has been going from sitting on his bed, to running a lap in his room, rinsing hands in sink, to sitting back on bed singing repeatedly. This literary writer attempting to talk with medication again at this time, pt again refuses Zyprexa stating it is against his samaritan to take medication. 1014 - Pt sitting on bed in room at this time, Tigist MELÉNDEZ doing 15 minute checks and pt comes to door and states to Tigist MELÉNDEZ, excuse me ellyn, do you know Patrick loves you? He loves me too and then ambulates back to sit on bed singing to self. 1033 - Dr. Perez and WORKER'S COMPENSATION CLAIMS EXAMINER student talking with pt at this time in room. 1144 - This literary writer sitting 1:1 with pt at this time. Pt frequently changing positions from sitting on bed to washing hands in sink and then coming to door of his room and telling this literary writer Patrick loves you. Patrick loves you very much. Pt also tells this literary writer if you run now, you won't . Asked pt what he meant by this, pt states I care about you. It's for your safety and then ambulates back to sit on bed. Pt appears tense and suspicious, flat and guarded. Pt is watchful of peers and nursing staff. 1230 - Ok per Dr. Perez for pt to wear his own clothes, as pt has been frequently asking if he may wear his own clothes. Strings removed from pts sweat pants, ok per pt for strings to be removed. This literary writer attempted to provide pt with sweatpants and underwear, pt refuses sweat pants I just want the underwear. Sweat pants returned to locker. Toni SERRANO remains 1:1 with pt. 1256 - Pt in room at this time, approaches 1:1 Toni nunez LPN, and frequently keeps apologizing, stating I am so sorry. Toni SERRANO advised pt there is no need for him to apologize and reminded pt he is safe here. Pt states I have anger issues with my subconscious thought and I'm sorry. Emotional support provided to pt. Pt returns back to bed and sits down, staring at wall. 1258 - Pt in room at this time and approaches 1:1 sitToni le LPN, at doorway and states I love you. Compassionately and then ambulates back into room to sit down on bed. 1311 - Pt standing at nurses station at this time, pt tells this literary writer please, you should leave. Please it is for your safety. Asked pt if he is having thoughts of harming staff, pt states no I am not. I'm sorry. Emotional support provided to pt, pt again reminded the unit is a safe space and both he and staff are safe. Pt states you aren't safe. You are around me. Pt then closes his eyes and states I shouldn't have said that. I'm sorry. Pt ambulates away from nurses station and stands with his head facing corner of wall by group room, then ambulates back to his room. Toni SERRANO remains 1:1 with pt. 1417 - Pt asking may I please go to the quiet room for a little while? Pt referring to unlocked quiet area on unit which he spent time in yesterday, pt shares I feel safe there. Pt escorted to unlocked quiet area, pt lays down to rest on mattress in unlocked quiet room upon entering room. Toni SERRANO remains 1:1 with pt. 1436 - Pt walks out of unlocked quiet room at this time and asks this nurse can I go back to my room now? Pt ambulates back to his room at this time and sits down on floor in room with head bowed and hands folded as if saying a prayer. Toni SERRANO remains 1:1 with pt. 1450 - Pt in room at this time sitting on bed staring blankly at wall. Pt stating no, no, no repeatedly. Pt appears guarded and suspicious. Toni SERRANO remains sitting 1:1 with pt. 0030 Orders, labs and notes reviewed, patient is resting quiet in bed at beginning of shift, even resp, one to one precautions maintained for safety 0615 Rested quiet overnight, appeared to sleep 6 hours, resting quiet in bed at present time, watchful, awake 2209 Pt refusing HS Zyprexa tonight. Dr Perez updated on refusal of medication, no new orders. Dr Perez states intent to talk with guardian tomorrow for further direction. 1914 Assumed care of patient until 2329. Patient is resting quietly in bed. One to one maintained for patient's safety. 1944 Patient came to door of his room Staring affect. Back to bed. 2149 Patient refused Zydis. Much encouraging done. Still patient refused medication. Says he does not need it. Offered Trazodone, still refused. Patient is calm and watchful. 2209 MEDHAT Dorman tried to get patient to take his medication, still he refused. Dr. Perez notified per MEDHAT Dorman. No new orders received.Dr. Perez will talk with his mother tomorrow. Patient s resting quietly in bed. 2212 Patient is resting quietly in bed. Psychiatry Progress Note Patient Name: Leon Atkinson Admit Date: 3000704 MR #: [id number] : 2000 Perpetual Assessment Leon Atkinson is a 20 y.o. male presenting with an exacerbation of his schizophrenia, resulting in agitation, bizarre behaviors and behaviors dangerous to himself. Diagnosis & Plan/Recommendations PRINCIPAL DIAGNOSIS: Undifferentiated schizophrenia (HCC) * Undifferentiated schizophrenia (HCC) Assessment & Plan A: Leon has experienced a deterioration in his symptoms in the past week. Mother reports that he was doing relatively well, even asking for hugs and expressing his love for her. Three days ago, he spent the night wandering around all night outside without warm clothing. He was carrying a groundhog and asking neighbors for a hatchet so he could cut it up and eat it. Police returned him to his mother. The next night, he took off toward [place]. Denies hearing voices but he is obviously distracted by internal stimuli, also looking around as if he sees things. Has not been eating because of paranoid thoughts about his food. He is taking fluids. Mother reports poor sleep right before his run away behaviors. Denies suicidal and homicidal thinking. 08-02-2021: Leon has experienced periodic episodes of extreme agitation today. He has tried to charge the door to the unit and has tried to grab keys away from security guards. After prn medications, his speech and communicative capacity was actually improved. He continues to be too paranoid to eat most foods. Remains extremely paranoid. Less blocking.No as preoccupied with internal stimuli as he was at admission. Denies SI/HI. P: Admit for patient safety and stabilization Suicide and unpredictable precautions Invega Trinza not due until 08-22. Add supplemental olanzapine 5 mg po or IM. Increase to 5 mg bid PRN medications for anxiety, insomnia and agitation Monitor PO intake Internal medicine consult SW consult for collateral information and discharge planning Comorbid issues impacting my care plan include non-adherence. Following for agitation, bizarre behaviors, hallucinations, severe paranoia Interval History: Leon continues to be very, very paranoid. Although he is communicating better today, he will unpredictably make attempts to escape or become very agitated. It appears that he is hearing voices. Denies mood disturbance. He is more comfortable in the seclusion room because he says it is quieter. Denies SI/HI Review of Systems: Constitutional, cardiac, pulmonary, neurologic, musculoskeletal, GI and systems reveiwed and negative except as noted above Physical Examination: Vital Signs: BP 126/86 Pulse (!) 115 Temp 98.2 F (36.8 C) (Oral) Resp 12 Ht 5' 10 Wt 72.4 kg (159 lb 9.8 oz) SpO2 98% BMI 22.90 kg/m Mental Status Evaluation: General Appearance & Behavior: age appropriate, pleasant, cooperative, good eye contact Grooming & Hygiene: hospital gown and unkempt Psychomotor Activity: no psychomotor abnormalities or muscle atrophy noted Gait & Station stable gait and ability to rise from bed/chair without assistance Speech: diminished amount, soft spoken and slowed Flow of Thought: tangential, concrete and disconnected Thought Associations: Loose Content of Thought: No evidence of SI/HI, auditory hallucinations, visual hallucinations, delusions and paranoia Mood: stressed out Affect: flat Insight: impaired Judgment: impaired Orientation: alert and oriented to person, place, time, and circumstances Memory: intact recent and remote Attention: impaired Concentration: impaired Language: intact Fund of Knowledge: estimated average intelligence Laboratory and Additional Data Reviewed: Laboratory 08/02/21 4:49 PM Medications 08/02/21 4:49 PM Transcriptions 08/02/21 4:49 PM Treatment options and alternatives reviewed with patient. Risks, benefits, side effects of all psychiatric medications discussed with patient and informed consent obtained. All questions were answered. Christi Perez MD 08/02/2021 4:42 PM No MASK 1:1 1535 Assumed care of patient after receiving report. Patient resting in Special Care area on mattress with blanket covering him and eyes closed at this time. 1610 In room at this time. [address] at this time. 1700 At nursing station asking to look at [place] slip. Patient advised was not on pink slip as guardian had signed patient as Voluntary. 1730 Patient resting in room in bed on left side covered with his blanket at this time. 1810 In room sleeping at this time. 1850 In room awake at this time. 13:10 This literary writer was leaving the group room, pt was in the hallway, several staff present encouraging pt to return to his room and away from hallway with exit door. Pt intense, watchful and paranoid. Introduced self to pt and this literary writer flipped name badge over to show pt this literary writer's face in attempt to build rapport. Pt grabbed name badge and ripped it away from this literary writer. Nursing staff involved and protective services coming to the unit. Refer to nursing notes for additional information. Pt will be placed on hold from therapies today. Will monitor pt progress and initiate Behavioral Health Therapy Assessment at a later time. 0833: Call placed to Dr. Perez to update, new medication order received, see MAR. 0845 - The pt walks to the seclusion room and door is unlocked and the pt asks for and provided with cup of water [id number] - The pt sates that he needs to use the toilet and he is able to walk calmly to his room and urinates and walks back to the seclusion area and Pt asks for the door to the seclusion area to be locked and he states that this would be for his safety and this staff offers reassurance that door will remain unlocked ans shut for his privacy and to provide calmer environment and he reluctantly agrees and He is unable to elaborate on any fears or to share with staff reason that he feels unsafe and he is calm and cooperative during this interaction 0935 - pt lays on mattress and eyes closed and resp easy 0945 - Pt asks appropriately for and is provided another cup water and expresses gratitude says thank you 0955 - Pt supine on mattress eyes open 1001 - Eyes closed easy resp 1003 - Rt side eyes closed 1005 - Sitting edge of mattress 1015 - The pt sates that he needs to use the toilet and he is able to walk calmly to his room and urinates and walks back to the seclusion area 1030 - Laying on mattress rt side eyes open 1035 - Eyes closed 1045 - Rt side eyes closed easy resp 1050 - Lt side facing wall 1055 - The pt sates that he needs to use the toilet and he is able to walk calmly to his room and urinates and walks back to the seclusion area 1100 - Supine eyes open 1115 - Pt request to return to his room and walks to his room and sits on bed 1130 - After this staff participated in kpi returned to unit and other staff report that the pt has exhibited exit seeking behaviors and Pt asks this staff if he could just walk in the hallway and this staff agrees to walk with the pt. 1145 - Pt and this staff walk hallway and while pt looks at exit closely, he does not attempt to open and he walks back to his room and has opened and closed room door multiple times 1215 - Door open pt sitting cross legged on bed and hands clasped tightly together 1245 - Pt pacing in room 1250 - Pt sitting cross legged on bed and this staff asks pt if he feels tense and would like po prn med rather than im later and pt denies feelings and unable to elaborate on stressors and once again begins repeating no rather than participate in conversation and pt sitting on bed and pinching his arm at the time of this writing 1200 - Pt refuses vs 1310 - As this staff preparing prn injection, pt walks from room and attempt to grab other staff cinthya javier and this staff admin im prn meds haldol 5mg and ativan 2mg and benadryl 50mg in lt vl and pt tolerates well and security and mgmt present 1330 - pt walks to quiet room escorted by security and staff and is pacing in room door unlocked and staff present outside of door and pt standing facing window At the time of this writing 1345 - Pt able to urinate in seclusion area toilet asks appropriately and walks back to quiet room and sitting on mattress at the time of this writing 1400 - Pt asks appropriately and expresses gratitude for a cup of water 1415 - Pt laying on mattress restless and change position frequently eyes closes resp unlabored 18 1430 - After appearing to sleep the pt stands and looks out of door and asks tht the door be locked and this staff again offers reassurance that he is safe and pt asks for the door to be shut and evinces understanding by returning to mattress and covering self with blanket and is laying on his left side at the time of this writing 1500 - At the time of this writing pt is laying on mattress rt side eyes closed even resp but frequent position changes and opens eyes often since last writing No safety huddle meeting today. Nursing notes report patient slept 3-4 hours. Patient is void of eye contact with staff and remains elopement risk as patient has gone and pushed on door. This worker received followup appointment from [facility] in Dr. Perez's outpatient office. Appointment information entered in the patient's AVS. 0730 - Pt in room at this time sitting on bed, pt staring blankly at wall. Bizarre, staring affect observed. This literary writer greeted pt good morning and introduced self to pt as his nurse for the day. Pt hesitates before speaking and then states hi. Offered pt his breakfast tray, pt declined stating I don't want that. Pt requesting cup of water, provided to pt at this time. Offered pt packaged foods, pt declined stating no thank you. Pt noted to frequently move from sitting on bed and ambulating to sink to rinse his hands, wipe his hands on his paper scrubs, look out window, and then sit back on his bed repeatedly. 5645 - This RN doing 15 minute rounding on unit at this time. Pt in room at this time, pt pacing between bed and window. Pt suddenly runs out of room towards exit door by room 3300. Pt repeatedly pushing on exit door. Pt directed to move away from door and back to his room by Bruce SERRANO, pt receptive to this. 0751 - Pt sitting in room at this time on bed, pt then suddenly gets out of bed and begins running towards exit door by room 3300. Pt attempting to push on exit door. Pt redirected to move away from exit door by Kevyn MELÉNDEZ and redirected back to room. Pt appears paranoid, fearful, watchful of staff and peers. Pt repeatedly stating no, no, no. Emotional support provided to pt, Kevyn MELÉNDEZ and this nurse talking with pt in room. 0754 - Security called at this time regarding the above by Bruce SERRANO. 0756 - Security X 2, Kyle and Mat, on unit at this time. Report given to security by this literary writer. 0758 - Pt given Benadryl 50 mg IM, Haldol 5 mg IM, and Ativan 2 mg IM at this time for increased agitation and anxiety. Security X 2 present with this nurse and Kevyn MELÉNDEZ while injections were administered. Pt tolerated injections fairly well with encouragement from nursing staff and security. 0810 - This literary writer, security X 2, and Kate MELÉNDEZ manager present in room with pt at this time. Pt continues to attempt to push past staff to runs towards exit door. Pt continues to state no, no, no, no repeatedly. Attempted to talk with pt about AH/VH he appears to be experiencing, pt does not respond, only stating no, no, no. 0815 - Security X 3, aKte MELÉNDEZ manager, this literary writer, and Tigist MELÉNDEZ in room with pt at this time. Pt attempting to grab at security officers keys and belts. Tigist MELÉNDEZ and this nurse attempting to talk with pt and reassure pt he is in a safe environment, pt not receptive to this at this time. Pt continuing to state no, no, no repeatedly. Pt continues to attempt to push past security and nursing staff to run to exit door. 0817 - Pt asking when will Dr. Perez be here? Advised pt Dr. Perez will be here this morning and will meet with him today. Pt stares blankly for a moment and again attempts to grab at security officers keys and belts. 0824 - Pt remains in room at this time with this literary writer, security X 3, and Tigist MELÉNDEZ. Pt continues to attempt to push past staff to run to exit door. Pt continues to attempt to grab security officers keys and belts. This nurse attempting to talk with pt, pt lunges forward at this literary writer in attempt to grab name cinthya. Pt redirected to sit down on bed by [employer]. Pt continues to state no, no, no. Pts eyes widened, pt appears to be experiencing increased paranoia and AH/VH as evidenced by current behavior. 0833 - Belinda Franklin charge auditor, contacted Dr. Perez at this time and received new medication order for one time dose of Haldol 5 mg IM. 0835 - Pt given Haldol 5 mg IM at this time for increasing agitation. Pt tolerated injection fairly well, [employer] X 3, this literary writer, and Tigist MELÉNDEZ remain in room with pt. Pt continues to push past staff in attempt to run to exit door, continuing to grab at security officers. 0841 - Pt remains in room at this time with this literary writer, Tigist MELÉNDEZ, Kate MELÉNDEZ nurse corporate quality manager, and [employer]. Pt continues to grab at security officers, pt attempting to wrap his leg around Mat security, continues to attempt to push past staff to get to exit door. Discussed with Kate MELÉNDEZ manager and Dr. Perez, pt to be moved to unlocked quiet area on unit to help decrease stimulation. 0845 - Pt walked with [employer] X 3 and nursing staff to unlocked quiet area on unit at this time. Pt cooperative with this. Pt provided with pillow and blanket. Pt requesting cup of water, provided to pt. Pt thankful for this. Kevyn MELÉNDEZ sitting with pt in unlocked quiet area at this time. 0856 - Dr. Perez on unit talking with pt in unlocked quiet area at this time. Pt calm and controlled at this time. Kevyn MELÉNDEZ remains sitting with pt in unlocked quiet area on unit. 0912 - Pt ambulates to use restroom in his room at this time, Kevyn MELÉNDEZ remains with pt for safety. Pt calm and cooperative at this time. 0930 - Pt resting quietly lying on mattress in unlocked quiet area on unit at this time. Respirations even and nonlabored. Kevyn MELÉNDEZ remains with pt for safety. 1030 - Pt resting quietly sitting on mattress in unlocked quiet area on unit at this time. Kevyn MELÉNDEZ remains with pt for safety. 1052 - Pt out of unlocked quiet area at this time per pts request to use the restroom. Kevyn RN remains with pt for safety. Pt provided with cup of water per his request, pt thankful. Pt ambulates back to unlocked quiet area after using restroom. 1105 - Dr. Perez and Kate CHOWDHURY student talking with pt in unlocked quiet area on unit at this time. Kevyn MELÉNDEZ remains with pt for safety. 1128 - Pt in room at this time resting in bed awake. Pt gets out of bed suddenly and begins to run down hallway, pt stops at nurses station and turns around then runs back into room. Asked pt if there is anything he needs right now, pt states no. Offered pt lunch tray, pt refuses lunch tray at this time. Offered pt packaged foods, encouraged pt to eat something, pt again declined. Kevyn MELÉNDEZ remains with pt for safety. 1145 - See note from Kevyn MELÉNDEZ at this time. 1230 - Pt in room at this time, sitting up in bed awake. Pt frequently moving from sitting in bed to sink to rinse hands, then looking out window, and then sitting back in bed. Pt again offered snack or drink, pt politely declined. Kevyn MELÉNDEZ remains with pt for safety. 1255 - Pt refusing vital signs at this time. 1258 - Pt in room at this time sitting on bed cross legged, pt noted to be pinching his skin on his arms. Pts eyes appear to be searching around room. Pt pacing around room occasionally and then sitting back in bed. Kevyn MELÉNDEZ offered pt PO medications, pt refusing at this time. Pt continues to pinch at arms. 1304 - Kevyn MELÉNDEZ and Kate floodplain manager talking with pt in room. Pt attempting to push past nursing staff, stating I need to run. 1310 - See note from Chary GONZALEZ and Kevyn MELÉNDEZ at this time. 1330 - See note from Kevny MELÉNDEZ at this time. 1420 - Pt remains in unlocked quiet area on unit at this time. Pt resting quietly on mattress. Kevyn MELÉNDEZ remains with pt for safety. 1504 - Pts mother/guardian, Rachel, on phone at this time requesting update on pt. Update given by this literary writer. 0030 Orders, labs and extensive notes reviewed, patient awake at time of this writing, intermittently in and out of room, walking for short distances in the [place]ren, touching exit doors, appears to be reality testing at times. This RN greeted patient and provided patient with several packaged items and a sealed water on the chair next to his bed. Patient did not respond or acknowledge this RN, watchful, tense. Patient non responsive to offer of medication to help facilitate sleep or relaxation. 0440 Patient out of room, staring affect, slow to respond, quiet. At one point voiced I smell weed. This RN was in the same area and assured patient there was no burning or smoke smell that was detected and patient was safe here. This did not seem to reassure the patient in any meaningful way. Remains in paper scrubs and non-skid socks 0615 Rested poor overnight, appeared to sleep 3-4 hours, broken up, remains in room, watchful, quiet 0650 Thanked this RN for snack provided at beginning of shift, soft spoken and controlled in interaction 1530 Pt getting up out of bed. Pt initially looked as if pt was going to take off running, but pt stopped in front of this literary writer in doorway to room, but then did come out to dining area with this literary writer. Pt will not make any eye contact and eyes are constantly darting around surroundings. Pt presents as tense with delayed response times. When asked, pt is able to correctly state place, date, and day of the week. Pt reminded of past visits on the unit and pt reassured of safety here. Pt then asked to lay back down and returned to room. Pt provided with socks and ice water. Pt remains in paper scrubs. [address] Perez to increase Ativan to 2 mg every 4 hours PRN PO or IM and add Benadryl 50mg PO or IM every 4 hours PRN with Haldol and orders entered in Epic. 1600 Pt resting in bed, eyes closed, resps easy. 1605 Pt returned half eaten snacks to this literary writer that had been provided by day shift staff (granola bar and [employer]). Pt refused to have temperature taken. 1625 Pt refused dinner tray. Pt ran out of room twice to check to see if fire door exit was locked, but then ran right back to room. 1635 Pt out of room and to exit door again. Pt pushed on door to see if it was locked and then back to room. This literary writer asked pt if there was something pt needed and pt said, freedom. Pt reminded that pt would be discharged as soon as pt was doing better just like when pt was here before. Explained that Zyprexa had been ordered to start tonight at bedtime which would help pt to get better. Pt said, I don't want to take it (Zyprexa). Told pt to think about taking the Zyprexa as pt was on it before and per Dr Perez, the Zyprexa worked well for pt. Explained that this literary writer and pt would talk more when the Zyprexa is due. 1655 Pt up to nurses station and asked that this literary writer call pt's mother and tell mother not to visit tomorrow. This literary writer said I would and pt thanked this literary writer and returned to room. Pt making occasional eye contact now. 1659 Mother updated that pt does not want mother to visit tomorrow and mother verbalized understanding and said would check back tomorrow before coming. 1718 Pt in room laying in bed awake, staring. 1735 Pt out of room to exit door. Pt never tried to push on exit door latch, pt only looked out the window and then walked back to nurses station and on to room. Pt remains wide eyed and watchful. 1820 Pt sitting on bedside in room, staring. 1858 Pt has continued to refuse supper tray but has been taking in water. Pt encouraged to eat something, after much delay pt said pretzels and granola bar and pt provided with both. Pt continues to randomly check exit fire door and then return to room. 1915 Pt laying in bed, awake. 1934 Pt resting quietly, resps even and non labored. 2011 Pt continues to rest quietly, resps even and non labored. 2114 Pt resting quietly, resps even and non labored. 2126 Pt awakened to take scheduled Zyprexa. Pt did take Zyprexa and allowed this literary writer to check for pill taking. Pt still has staring affect with delayed response time, but pt is making some eye contact. Pt had eaten half the granola bar and half the pretzels provided earlier. Pt asked to have some trash taken out of room and thanked this literary writer for doing so. Pt remains in paper scrubs. Pt denies any other current needs/complaints. 2199 Pt resting quietly, resps even and non labored. 2229 Pt continues to rest quietly, resps even and non labored. This worker called the patient's mother (Rachel), explained my role in treatment and welcomed her involvement in discharge planning. Rachel reported she is not sure what happened with the patient other than he got karin saucedo and the next thing she knows he's gone. Rachel reported that when the patient got to [place], [facility] is across from [facility] and has Rangers that monitor the park. Rachel reported that the patient ripped up his credit cards and car registration, put them in bag, and threw bag in the garbage. The patient left the car running and he walked in to the [facility]. The Rangers and [employer]'s deputies found the patient and he told them he was trying to get to the airport to go to [place]. Rachel reports that the patient does not like to take oral medications so injectables are her only recourse. Rachel reported patient's baseline as very bland, stays in his room a lot and doesn't come out much. On better days, the patient my come out a little more. Rachel reported that before the patient started experiencing mental health issues he was very intelligent which probably helps him function better than most but it can still be a concern as the patient is capable of driving and has his own car. Navdeep reported that she has a tracker on his car. Rachel reported that she will continue to have the patient see Dr. Perez in outpatient clinic. I asked Rachel if there was anything else this worker could do for her or the patient and no other needs for discharge were identified at this time . I secured documentation of the patient's mother's guardianship and placed it in the front of the patient's chart. 1339: This RN obtained telephone orders from Dr. Perez for Ativan 1mg IM. Pt attempting to run out of room and towards exit doors. Pt extremely paranoid and fearful. Orders verified with read back. 1426: This RN obtained telephone orders from Dr. Perez for haldol 5mg IM and benadryl 50mg IM. Pt remains paranoid and fearful attempting to flee. Orders verified with read back. (see note from pts primary, MEDHAT Hobson) This worker reviewed the patient's chart and the patent's mother provided consent on the voluntary psych consent. I met with the patient in his room. Patient sitting at side of bed in scrubs. I explained my role in the patient's treatment and gently invited conversation without any response from the patient as he sat still looking forwards the wall. Patient avoided any eye contact with this worker and when I advised patient that I hoped he had a good day, patient responded with thankyou . Behavioral Health Inpatient Social Work Psychosocial Assessment Date: 08/01/2021 Time: 11:29 AM Patient Name: Leon Atkinson Date of : 2000 Sex: Male Admit Date/Time: 07/31/2021 6:15 PM Clinical information reviewed in EPIC CURRENT HOSPITALIZATION: Current Hospitalization Division Field Inspector Needs: Not needed Chief Complaint: Psychosis MARITAL STATUS: Marital Status Marital Status : Single SEXUAL ORIENTATION: Sexual Orientation Sexual Orientation: Heterosexual FAMILY INFORMATION: Family Information Pertinent Family Information : (Patient lives with his biological mother. Patient has a sister who he is not in touch with according to his own reports. Patient's mother is legal guardian) LIVING ARRANGEMENTS: Living Arrangements Current Living Arrangements: lives with mother EDUCATION: Education Highest Level of Education : High school EMPLOYMENT: Employment Current Employment: Unemployed SERVICE: Service Service: No LEGAL HISTORY: Legal History Legal History: None RELIGIOUS/SPIRITUAL BELIEFS: Adventist/Spiritual Beliefs Adventist/Spiritual Beliefs: Yes Yes: [employer] ETHNIC/RACE: Ethnic/Race Ethnic/Race: FAMILY HISTORY: Family History Family Psychiatric History: Yes Family Psychiatric History: (Per records, maternal second cousin has Schizophrenia) PATIENT HISTORY: Patient History Patient Psychiatric History: (Most recently at [facility]. Patient has been hospitalized to [facility] in 2019 that was his first psychiatric hospitalization) Patient Psychiatric Treatment: (See's Dr. Perez in outpatient clinic) ABUSE: Abuse Child/Adult/Neglect Issues: (denies) CURRENT STRESSORS: other psychological/environmental problems STRENGTHS AND LIMITATIONS: Strengths and Limitations Patient Strengths: (Family/friends, Housing, Mental health services) SUPPORT SYSTEMS: family/[facility] PATIENT GOALS FOR TREATMENT: Patient stated goals for treatment are to reduce/eliminate psychosis CLINICAL SUMMARY: Patient is a 20 year old male with a history of Schizophrenia who presents to the Emergency Department with police. Last night patient ran away from home and was running through [facility]. He reportedly knocked on a stranger's door and asked them for some sort of knife so he could cut and eat an animal he found on the side of the road. This person called police but patient ran away again and wasn't found until later that night. Around 4am he was returned home by police and slept for 2 hours before running away again. On or around 07/30/2021 the patient was tracked to [facility] via GPS on his cell phone. He reportedly threw a bag containing his social security card and credit cards in the trash, left his keys in his car, and walked into the [place]. Police found patient in the park and transported him to [place]. Per police, he told them he was trying to get to the airport for unknown reasons. Electronically signed by: Jose Cruz Torres MA.Ed., [facility], EMERGENCY OPERATOR/UR 0730 - Pt in room at this time, sitting on side of bed. Pt with blank/staring affect. Introduced self to pt as his nurse for the day, pt stares blankly at this literary writer and hesitates for a moment before saying hello. Pt denies current needs at this time. Pt wearing paper scrubs. Pt with staring affect, appears to be paranoid and suspicous. 0732 - Vital signs obtained at this time. 0800 - Pt in room at this time staring blankly out window. This literary writer attempting to talk with pt at this time. Pts responses very delayed, pts eyes appear wide and pt with staring affect. Pt provided with breakfast tray, pt states I won't eat that. Explained to pt his breakfast tray can be held in kitchen for pt to eat later if he chooses, pt turns facing window away from this nurse and states again I don't want to eat that. Not even if it's in a package. I won't eat that. Pt suspicious and watchful throughout interaction. Pt frequently looking out into hallway during interaction, watchful of peers walking in hallways. Pt encouraged to drink fluids to prevent dehydration. Pt walks over to sink and runs hand under water, wiping wet hands on his pants, and walks back to window in room and begins pacing back and forth. Pt responses very minimal and delayed, pt mostly responding to yes/no questions at this time. 0922 - Pt remains seclusive to room. Pt staring out window, pacing back and forth in room. Pt is calm upon approach. Asked pt if he needs anything, pt stares blankly for a moment and then states water. Provided to pt at this time, also offered pt snack and pt declined. Pt thankful for cup of water. 0930 - Pt out of room at nurses station at this time, pt asking do you know when the doctor will be here? Advised pt the doctor has meetings this morning and then will be around to talk with him, pt receptive to this. Pt asking if he may wear a gown or his personal clothes rather than paper scrubs, advised pt Dr. Perez will determine this once she talks with him today. Again pt receptive to this. 1040 - Dr. Perez and WORKER'S COMPENSATION CLAIMS EXAMINER student talking with pt in room at this time. 1145 - Pt in room at this time staring out window. Pt has been ambulating to sink to rinse his hands, then to look out window in room, and then to sit on bed repeatedly all day. This nurse brought in lunch tray for pt and encouraged pt to try to eat something as he as not eaten during this shift. Pt refuses, stating no thank you, I don't want that. Offered pt snacks and offered to order pt something different, pt politely declined and states I will just have water. Provided this to pt, pt thankful. Pt continues to be seclusive to room, appears watchful and paranoid. Responses continue to be very delayed. Pt asking can I wear something else besides these?, referring to paper scrubs. Kevyn MELÉNDEZ asked Dr. Perez regarding pts paper scrubs, pt is to remain in paper scrubs until speaking to doctor again tomorrow. Advised pt of this, pt receptive to this. 1257 - Pt lying in bed at this time, suddenly gets up out of bed and runs past nurses station without pants or underwear on and immediately runs to exit door and begins pushing aggressively on door. This literary writer, Kevyn MELÉNDEZ, Bruce SERRANO directed pt away from exit door. 1259 - Pt running in hallway without pants or underwear on, attempting to push on exit door by room 3300. Kevyn MELÉNDEZ and Bruce SERRANO attempting to redirect pt away from exit door. Pt very paranoid and fearful, unable to be verbally redirected by staff. Pt charging at staff. Security contacted by this nurse. 1303 - Security present X 3 on unit. Pt redirected to room by security X 3, this nurse, Kate floodplain manager, and Kevyn MELÉNDEZ. Pt charging at staff and security. Pt repetitively stating run, run, run. Pt states he needs to run away for freedom. Security attempting to talk with pt to redirect, pt continues to be very fearful and paranoid. 1307 - Pt attempting to charge at nursing staff and security. Pt redirected to lay back down in bed by security X 3. Pt stating it's happening today. When asked what pt means is happening today, pt states . 1310 - Pt given Haldol 5 mg IM and Ativan 1 mg IM at this time, pt tolerated injections fairly well. Security X 3 present when injections administered. 1315 - Pt lying down in bed resting quietly. Security X 3 present, Kate floodplain manager present, this literary writer present. 1325 - Pt out of bed to use restroom at this time. Pt then undresses and gets in shower, turns on water and stands in shower for a moment, and ambulates back into room undressed. Pt redirected by this nurse and security Kyle to dry off and put paper scrubs back on. Pt receptive to this. 1339 - Pt attempting to charge at nursing staff and security X 3. Pt stating I need to talk to Dr. Perez, I need to talk to Dr. Perez. Nursing staff encouraged pt that Dr. Perez is aware of how pt is feeling and has ordered pt medications for pt to help him calm down. Pt states she didn't say hi today. I need to say hi to her. Pt reminded Dr. Perez will see him tomorrow and talk with him then, pt encouraged to try to rest at the moment. Pt continues to attempt to run out of room, pushing past nursing staff and security. Jodee MELÉNDEZ contacted Dr. Perez at this time regarding pts current status. 1346 - Pts mother on phone at this time, updated on current status by Bruce SERRANO. 1400 - Pt attempting to charge at nursing staff and security, attempting to run out of room towards doors. Pt redirected to lay back down in bed by security and nursing staff. 1415 - Pt continues to attempt to run out of room towards doors, continues to charge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 Plan of Care Outcome: Partially Met Problem: Cognitive-Perceptual Pattern - Impaired Goal: Improved thought processes Outcome: Partially Met Goal: Improved environmental perceptions Outcome: Partially Met Problem: Coping - Ineffective, Family Goal: Effective coping Outcome: Partially Met Goal: Knowledge of problem-solving techniques Outcome: Partially Met Goal: Knowledge of community resources Outcome: Partially Met Goal: Participation in family member care Outcome: Partially Met Problem: Coping- Ineffective Goal: Effective coping Outcome: Partially Met Problem: Health Maintenance - Impaired Goal: Knowledge of disease process Outcome: Partially Met Goal: Able to perform ADL Outcome: Partially Met Goal: Improved sleep pattern Outcome: Partially Met Goal: Nutrition intake to meet estimated needs Outcome: Partially Met Problem: Mood - Altered Goal: Appropriate social interaction Outcome: Partially Met Problem: Social Interaction - Impaired Goal: Appropriate social interaction Outcome: Partially Met Goal: Participation in group activities Outcome: Partially Met Problem: Plan for Discharge Goal: Knowledge of discharge plan and instructions Outcome: Not Addressed Goal: Knowledge of medication management Outcome: Not Addressed Goal: Knowledge of need for follow-up care Outcome: Not Addressed Problem: Actual or potential alteration in health Goal: Absence of healthcare acquired conditions Outcome: Met Goal: Knowledge of Enviroment Outcome: Met Problem: Social Interaction - Impaired Goal: Participation in group activities Outcome: Not Met Problem: Plan for Discharge Goal: Knowledge of need for follow-up care Outcome: Not Met Problem: Actual or potential alteration in health Goal: Knowledge of Interdisciplinary Plan of Care Outcome: Partially Met Problem: Cognitive-Perceptual Pattern - Impaired Goal: Improved thought processes Outcome: Partially Met Goal: Improved environmental perceptions Outcome: Partially Met Problem: Coping - Ineffective, Family Goal: Effective coping Outcome: Partially Met Goal: Knowledge of problem-solving techniques Outcome: Partially Met Goal: Knowledge of community resources Outcome: Partially Met Goal: Participation in family member care Outcome: Partially Met Problem: Coping- Ineffective Goal: Effective coping Outcome: Partially Met Problem: Health Maintenance - Impaired Goal: Knowledge of disease process Outcome: Partially Met Goal: Able to perform ADL Outcome: Partially Met Goal: Improved sleep pattern Outcome: Partially Met Goal: Nutrition intake to meet estimated needs Outcome: Partially Met Problem: Mood - Altered Goal: Appropriate social interaction Outcome: Partially Met Problem: Social Interaction - Impaired Goal: Appropriate social interaction Outcome: Partially Met Problem: Violence - Risk of, Self/Other-Directed Goal: Absence of violence Outcome: Partially Met Problem: Plan for Discharge Goal: Knowledge of medication management Outcome: Partially Met Problem: Plan for Discharge Goal: Knowledge of discharge plan and instructions Outcome: Not Addressed Problem: Plan for Discharge Goal: Knowledge of discharge plan and instructions Outcome: Not Addressed Problem: Actual or potential alteration in health Goal: Absence of healthcare acquired conditions Outcome: Met Goal: Knowledge of Enviroment Outcome: Met Problem: Violence - Risk of, Self/Other-Directed Goal: Absence of violence Outcome: Met Problem: Actual or potential alteration in health Goal: Knowledge of Interdisciplinary Plan of Care Outcome: Partially Met Problem: Cognitive-Perceptual Pattern - Impaired Goal: Improved thought processes Outcome: Partially Met Goal: Improved environmental perceptions Outcome: Partially Met Problem: Coping - Ineffective, Family Goal: Effective coping Outcome: Partially Met Goal: Knowledge of problem-solving techniques Outcome: Partially Met Goal: Knowledge of community resources Outcome: Partially Met Goal: Participation in family member care Outcome: Partially Met Problem: Coping- Ineffective Goal: Effective coping Outcome: Partially Met Problem: Health Maintenance - Impaired Goal: Knowledge of disease process Outcome: Partially Met Goal: Able to perform ADL Outcome: Partially Met Goal: Improved sleep pattern Outcome: Partially Met Goal: Nutrition intake to meet estimated needs Outcome: Partially Met Problem: Mood - Altered Goal: Appropriate social interaction Outcome: Partially Met Problem: Social Interaction - Impaired Goal: Appropriate social interaction Outcome: Partially Met Goal: Participation in group activities Outcome: Partially Met Problem: Plan for Discharge Goal: Knowledge of discharge plan and instructions Outcome: Not Addressed Goal: Knowledge of medication management Outcome: Not Addressed Goal: Knowledge of need for follow-up care Outcome: Not Addressed Problem: Actual or potential alteration in health Goal: Absence of healthcare acquired conditions Outcome: Met Problem: Health Maintenance - Impaired Goal: Able to perform ADL Outcome: Met Goal: Improved sleep pattern Outcome: Met Problem: Violence - Risk of, Self/Other-Directed Goal: Absence of violence Outcome: Met Problem: Actual or potential alteration in health Goal: Knowledge of Interdisciplinary Plan of Care Outcome: Partially Met Goal: Knowledge of Enviroment Outcome: Partially Met Problem: Cognitive-Perceptual Pattern - Impaired Goal: Improved thought processes Outcome: Partially Met Goal: Improved environmental perceptions Outcome: Partially Met Problem: Coping - Ineffective, Family Goal: Effective coping Outcome: Partially Met Goal: Knowledge of problem-solving techniques Outcome: Partially Met Goal: Knowledge of community resources Outcome: Partially Met Goal: Participation in family member care Outcome: Partially Met Problem: Coping- Ineffective Goal: Effective coping Outcome: Partially Met Problem: Health Maintenance - Impaired Goal: Knowledge of disease process Outcome: Partially Met Goal: Nutrition intake to meet estimated needs Outcome: Partially Met Problem: Mood - Altered Goal: Appropriate social interaction Outcome: Partially Met Problem: Social Interaction - Impaired Goal: Appropriate social interaction Outcome: Partially Met Goal: Participation in group activities Outcome: Partially Met Problem: Plan for Discharge Goal: Knowledge of discharge plan and instructions Outcome: Partially Met Goal: Knowledge of medication management Outcome: Partially Met Goal: Knowledge of need for follow-up care Outcome: Partially Met Staff informed this literary writer that pt had verbalized willingness to speak to this literary writer. Upon entering room, pt was sitting on his bed completely covered with his blanket. It took pt several seconds to respond to literary writer during assessment. BEHAVIORAL HEALTH EVALUATION REASON FOR ADMISSION: I was involuntarily put here . When asked if he knew why, pt stated I have no idea STRESSORS: denied any stressors COPING SKILLS: running is better than walking TYPICAL DAY: refused to answer LEISURE INTERESTS: refused to answer SUPPORTS: per chart; mother STRENGTHS: refused to answer PT'S GOAL: I don't want to answer ADDITIONAL INFORMATION: Pt remained sitting on his bed throughout, did not make any eye contact, answers were delayed. GROUPS: Goal Group and AM Warm Up Problem: Actual or potential alteration in health Goal: Absence of healthcare acquired conditions Outcome: Met Goal: Knowledge of Enviroment Outcome: Met Problem: Violence - Risk of, Self/Other-Directed Goal: Absence of violence Outcome: Met Problem: Health Maintenance - Impaired Goal: Nutrition intake to meet estimated needs Outcome: Not Met Problem: Social Interaction - Impaired Goal: Participation in group activities Outcome: Not Met Problem: Actual or potential alteration in health Goal: Knowledge of Interdisciplinary Plan of Care Outcome: Partially Met Problem: Cognitive-Perceptual Pattern - Impaired Goal: Improved thought processes Outcome: Partially Met Goal: Improved environmental perceptions Outcome: Partially Met Problem: Coping - Ineffective, Family Goal: Effective coping Outcome: Partially Met Goal: Knowledge of problem-solving techniques Outcome: Partially Met Goal: Knowledge of community resources Outcome: Partially Met Goal: Participation in family member care Outcome: Partially Met Problem: Coping- Ineffective Goal: Effective coping Outcome: Partially Met Problem: Health Maintenance - Impaired Goal: Knowledge of disease process Outcome: Partially Met Goal: Able to perform ADL Outcome: Partially Met Goal: Improved sleep pattern Outcome: Partially Met Problem: Mood - Altered Goal: Appropriate social interaction Outcome: Partially Met Problem: Social Interaction - Impaired Goal: Appropriate social interaction Outcome: Partially Met Problem: Plan for Discharge Goal: Knowledge of discharge plan and instructions Outcome: Not Addressed Goal: Knowledge of medication management Outcome: Not Addressed Goal: Knowledge of need for follow-up care Outcome: Not Addressed Attempted to complete eval at this time, again pt refused to talk to this literary writer Problem: Actual or potential alteration in health Goal: Absence of healthcare acquired conditions Outcome: Met Problem: Violence - Risk of, Self/Other-Directed Goal: Absence of violence Outcome: Met Problem: Actual or potential alteration in health Goal: Knowledge of Interdisciplinary Plan of Care Outcome: Partially Met Goal: Knowledge of Enviroment Outcome: Partially Met Problem: Cognitive-Perceptual Pattern - Impaired Goal: Improved thought processes Outcome: Partially Met Goal: Improved environmental perceptions Outcome: Partially Met Problem: Coping - Ineffective, Family Goal: Effective coping Outcome: Partially Met Goal: Knowledge of problem-solving techniques Outcome: Partially Met Goal: Knowledge of community resources Outcome: Partially Met Goal: Participation in family member care Outcome: Partially Met Problem: Coping- Ineffective Goal: Effective coping Outcome: Partially Met Problem: Health Maintenance - Impaired Goal: Knowledge of disease process Outcome: Partially Met Goal: Able to perform ADL Outcome: Partially Met Goal: Improved sleep pattern Outcome: Partially Met Goal: Nutrition intake to meet estimated needs Outcome: Partially Met Problem: Mood - Altered Goal: Appropriate social interaction Outcome: Partially Met Problem: Social Interaction - Impaired Goal: Appropriate social interaction Outcome: Partially Met Goal: Participation in group activities Outcome: Partially Met Problem: Plan for Discharge Goal: Knowledge of discharge plan and instructions Outcome: Partially Met Goal: Knowledge of medication management Outcome: Partially Met Goal: Knowledge of need for follow-up care Outcome: Partially Met Attempted to complete eval. Pt was standing in room at door way. Explained reason for assessment. Pt politely stated I don't want to answer any questions . Will continue to attempt. Problem: Actual or potential alteration in health Goal: Absence of healthcare acquired conditions Outcome: Met Problem: Violence - Risk of, Self/Other-Directed Goal: Absence of violence Outcome: Met Problem: Actual or potential alteration in health Goal: Knowledge of Interdisciplinary Plan of Care Outcome: Not Met Problem: Cognitive-Perceptual Pattern - Impaired Goal: Improved thought processes Outcome: Not Met Goal: Improved environmental perceptions Outcome: Not Met Problem: Coping - Ineffective, Family Goal: Effective coping Outcome: Not Met Goal: Knowledge of problem-solving techniques Outcome: Not Met Goal: Knowledge of community resources Outcome: Not Met Goal: Participation in family member care Outcome: Not Met Problem: Coping- Ineffective Goal: Effective coping Outcome: Not Met Problem: Health Maintenance - Impaired Goal: Knowledge of disease process Outcome: Not Met Goal: Nutrition intake to meet estimated needs Outcome: Not Met Problem: Mood - Altered Goal: Appropriate social interaction Outcome: Not Met Problem: Social Interaction - Impaired Goal: Appropriate social interaction Outcome: Not Met Goal: Participation in group activities Outcome: Not Met Problem: Plan for Discharge Goal: Knowledge of medication management Outcome: Not Met Goal: Knowledge of need for follow-up care Outcome: Not Met Problem: Actual or potential alteration in health Goal: Knowledge of Enviroment Outcome: Partially Met Problem: Health Maintenance - Impaired Goal: Able to perform ADL Outcome: Partially Met Goal: Improved sleep pattern Outcome: Partially Met Problem: Plan for Discharge Goal: Knowledge of discharge plan and instructions Outcome: Not Addressed Attempted to complete eval at this time. Pt did carry on a brief conversation with this literary writer. Shared he was feeling better . When asked in what way was he feeling better he replied I'm in a better mind set . When asked if he would be willing to complete his assessment at this time, he replied no Problem: Actual or potential alteration in health Goal: Absence of healthcare acquired conditions Outcome: Met Problem: Violence - Risk of, Self/Other-Directed Goal: Absence of violence Outcome: Met Problem: Actual or potential alteration in health Goal: Knowledge of Interdisciplinary Plan of Care Outcome: Not Met Goal: Knowledge of Enviroment Outcome: Not Met Problem: Cognitive-Perceptual Pattern - Impaired Goal: Improved thought processes Outcome: Not Met Goal: Improved environmental perceptions Outcome: Not Met Problem: Coping - Ineffective, Family Goal: Effective coping Outcome: Not Met Goal: Knowledge of problem-solving techniques Outcome: Not Met Goal: Knowledge of community resources Outcome: Not Met Goal: Participation in family member care Outcome: Not Met Problem: Coping- Ineffective Goal: Effective coping Outcome: Not Met Problem: Health Maintenance - Impaired Goal: Knowledge of disease process Outcome: Not Met Goal: Nutrition intake to meet estimated needs Outcome: Not Met Problem: Mood - Altered Goal: Appropriate social interaction Outcome: Not Met Problem: Social Interaction - Impaired Goal: Appropriate social interaction Outcome: Not Met Goal: Participation in group activities Outcome: Not Met Problem: Plan for Discharge Goal: Knowledge of discharge plan and instructions Outcome: Not Met Goal: Knowledge of medication management Outcome: Not Met Goal: Knowledge of need for follow-up care Outcome: Not Met Problem: Actual or potential alteration in health Goal: Absence of healthcare acquired conditions Outcome: Met Goal: Knowledge of Interdisciplinary Plan of Care Outcome: Partially Met Goal: Knowledge of Enviroment Outcome: Partially Met Problem: Cognitive-Perceptual Pattern - Impaired Goal: Improved thought processes Outcome: Not Met Goal: Improved environmental perceptions Outcome: Not Met Problem: Coping - Ineffective, Family Goal: Effective coping Outcome: Not Met Goal: Knowledge of problem-solving techniques Outcome: Not Met Goal: Knowledge of community resources Outcome: Not Addressed Goal: Participation in family member care Outcome: Not Addressed Problem: Coping- Ineffective Goal: Effective coping Outcome: Not Met Problem: Health Maintenance - Impaired Goal: Knowledge of disease process Outcome: Not Met Goal: Able to perform ADL Outcome: Partially Met Goal: Improved sleep pattern Outcome: Not Met Goal: Nutrition intake to meet estimated needs Outcome: Not Met Problem: Mood - Altered Goal: Appropriate social interaction Outcome: Not Met Problem: Social Interaction - Impaired Goal: Appropriate social interaction Outcome: Not Met Goal: Participation in group activities Outcome: Not Met Problem: Violence - Risk of, Self/Other-Directed Goal: Absence of violence Outcome: Met Problem: Plan for Discharge Goal: Knowledge of discharge plan and instructions Outcome: Not Addressed Goal: Knowledge of medication management Outcome: Not Addressed Goal: Knowledge of need for follow-up care Outcome: Not Addressed Problem: Actual or potential alteration in health Goal: Absence of healthcare acquired conditions Outcome: Not Met Goal: Knowledge of Interdisciplinary Plan of Care Outcome: Not Met Goal: Knowledge of Enviroment Outcome: Not Met Problem: Cognitive-Perceptual Pattern - Impaired Goal: Improved thought processes Outcome: Not Met Goal: Improved environmental perceptions Outcome: Not Met Problem: Coping - Ineffective, Family Goal: Effective coping Outcome: Not Met Goal: Knowledge of problem-solving techniques Outcome: Not Met Goal: Knowledge of community resources Outcome: Not Met Goal: Participation in family member care Outcome: Not Met Problem: Coping- Ineffective Goal: Effective coping Outcome: Not Met Problem: Health Maintenance - Impaired Goal: Knowledge of disease process Outcome: Not Met Goal: Able to perform ADL Outcome: Not Met Goal: Improved sleep pattern Outcome: Not Met Goal: Nutrition intake to meet estimated needs Outcome: Not Met Problem: Social Interaction - Impaired Goal: Appropriate social interaction Outcome: Not Met Goal: Participation in group activities Outcome: Not Met Problem: Violence - Risk of, Self/Other-Directed Goal: Absence of violence Outcome: Not Met Problem: Plan for Discharge Goal: Knowledge of discharge plan and instructions Outcome: Not Met Goal: Knowledge of medication management Outcome: Not Met Goal: Knowledge of need for follow-up care Outcome: Not Met Problem: Actual or potential alteration in health Goal: Absence of healthcare acquired conditions Outcome: Met Goal: Knowledge of Interdisciplinary Plan of Care Outcome: Not Met Goal: Knowledge of Enviroment Outcome: Not Met Problem: Cognitive-Perceptual Pattern - Impaired Goal: Improved thought processes Outcome: Not Met Goal: Improved environmental perceptions Outcome: Not Met Problem: Coping - Ineffective, Family Goal: Effective coping Outcome: Not Met Goal: Knowledge of problem-solving techniques Outcome: Not Addressed Goal: Knowledge of community resources Outcome: Not Addressed Goal: Participation in family member care Outcome: Not Addressed Problem: Coping- Ineffective Goal: Effective coping Outcome: Not Met Problem: Health Maintenance - Impaired Goal: Knowledge of disease process Outcome: Not Met Goal: Able to perform ADL Outcome: Partially Met Goal: Improved sleep pattern Outcome: Not Met Goal: Nutrition intake to meet estimated needs Outcome: Partially Met Problem: Mood - Altered Goal: Appropriate social interaction Outcome: Not Met Problem: Social Interaction - Impaired Goal: Appropriate social interaction Outcome: Not Met Goal: Participation in group activities Outcome: Not Met Problem: Violence - Risk of, Self/Other-Directed Goal: Absence of violence Outcome: Partially Met Problem: Plan for Discharge Goal: Knowledge of discharge plan and instructions Outcome: Not Addressed Goal: Knowledge of medication management Outcome: Not Addressed Goal: Knowledge of need for follow-up care Outcome: Not Addressed 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 Diagnosis [place] I: Schizophrenia [place] II: No diagnosis [place] III: Patient Active Problem List Diagnosis Date Noted Schizophrenia, first episode, currently in partial remission ([facility]) 08/12/2018 Schizophrenia ([facility]) 02/02/2021 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 [place] IV: other psychosocial or environmental problems [place] V: 21-30 behavior considerably influenced by delusions or hallucinations OR serious impairment in judgment, communication OR inability to function in almost all areas Reason for Hospitalization Reason for Hospitalization: Psychosis Expected Discharge Date: ELOS: 7 days Precautions Precautions: Unpredictable, Suicide Patient Presenting Issues: Patient's Primary Presenting Issue Patient's Primary Presenting Issue: Psychosis Psychosis Symptoms: Auditory hallucinations, Visual hallucinations, Paranoia, Disorganized Psychosis Treatment Goals: Reduction in psychotic symptoms and behaviors Days To Improvement Of Goal: 7 Psychosis Interventions: Medication management/evaluation, Medication education, Group psychoeducation, Handouts psychoeducation, Individual psychoeducation, Family education/meeting, Develop personal safety plan Status Of Goal: Unchanged Patient's Secondary Presenting Issue Patient's Secondary Presenting Issue: Mood instablilty Mood Instability Symptoms: Thelma Mood Instability Treatment Goals: reduction in hyperactivity and agitation, impulsiveness Days To Improvement Of Goal: 7 Mood Instability Interventions: Medication management/evaluation, Pain and symptom management, Medication education, Group psychoeduction, Handouts psychoeducation, Individual psychoeducation, Famiily education/meeting, Develop personal safety plan Status Of Goal: Unchanged Precautions Precautions: Unpredictable, Suicide Patient Strengths Patient Strengths: Family/friends, Housing, Intellectual abilities, Mental health services, Physical health Patient Limitations Patient Limitations: Patient is involuntary, Other (Comment) Discharge Needs Anticipated Facility Type: Psychiatric aftercare, [facility] Criteria For Discharge Criteria For Discharge: Goals met, Maximum benefit obtained Additional Comments: Physician, Registered Nurse, Downstairs Maid, Adjunct Therapist included in treatment team discussion. Treatment team members present Christi Perez MD Patient Signature Date Patient's Response To Treatment Plan: Physician Signature Date Problem: Actual or potential alteration in health Goal: Absence of healthcare acquired conditions Outcome: Met Problem: Violence - Risk of, Self/Other-Directed Goal: Absence of violence Outcome: Met Problem: Actual or potential alteration in health Goal: Knowledge of Interdisciplinary Plan of Care Outcome: Not Met Problem: Cognitive-Perceptual Pattern - Impaired Goal: Improved thought processes Outcome: Not Met Goal: Improved environmental perceptions Outcome: Not Met Problem: Coping - Ineffective, Family Goal: Effective coping Outcome: Not Met Goal: Knowledge of problem-solving techniques Outcome: Not Met Problem: Coping- Ineffective Goal: Effective coping Outcome: Not Met Problem: Health Maintenance - Impaired Goal: Knowledge of disease process Outcome: Not Met Goal: Able to perform ADL Outcome: Not Met Goal: Improved sleep pattern Outcome: Not Met Goal: Nutrition intake to meet estimated needs Outcome: Not Met Problem: Mood - Altered Goal: Appropriate social interaction Outcome: Not Met Problem: Social Interaction - Impaired Goal: Appropriate social interaction Outcome: Not Met Problem: Plan for Discharge Goal: Knowledge of medication management Outcome: Not Met Problem: Actual or potential alteration in health Goal: Knowledge of Enviroment Outcome: Partially Met Problem: Coping - Ineffective, Family Goal: Knowledge of community resources Outcome: Not Addressed Goal: Participation in family member care Outcome: Not Addressed Problem: Social Interaction - Impaired Goal: Participation in group activities Outcome: Not Addressed Problem: Plan for Discharge Goal: Knowledge of discharge plan and instructions Outcome: Not Addressed Goal: Knowledge of need for follow-up care Outcome: Not Addressed Attempted to complete eval at this time in pt's room. Pt refused to answer questions stating I don't want to talk to you . Associated Problem(s): Undifferentiated schizophrenia (HCC) A: Leon has experienced a deterioration in his symptoms in the past week. Mother reports that he was doing relatively well, even asking for hugs and expressing his love for her. Three days ago, he spent the night wandering around all night outside without warm clothing. He was carrying a groundhog and asking neighbors for a hatchet so he could cut it up and eat it. Police returned him to his mother. The next night, he took off toward [place]. Denies hearing voices but he is obviously distracted by internal stimuli, also looking around as if he sees things. Has not been eating because of paranoid thoughts about his food. He is taking fluids. Mother reports poor sleep right before his run away behaviors. Denies suicidal and homicidal thinking. 08-02-2021: Leon has experienced periodic episodes of extreme agitation today. He has tried to charge the door to the unit and has tried to grab keys away from security guards. After prn medications, his speech and communicative capacity was actually improved. He continues to be too paranoid to eat most foods. Remains extremely paranoid. Less blocking.No as preoccupied with internal stimuli as he was at admission. Denies SI/HI. 08-03-2021: Leon has contracted not to try to escape so that he can wear his own clothes. He opposes all medications and some foods as sorcery which he defines as the combinations of simple ingredients to result in a complex substance. He states that Revelations prohibits the use of sorcery. He will not bend on this issue. 08-04-2021: Leon remains quite paranoid but his thinking is improving. He decided to take his Zyprexa and it seems to make a big difference in his agitation and his ability to communicate effectively. He is still not eating. Today is day 2 of a 3 day mu-ism fast. He is taking fluids. He says he wants to run as fast as he can to alleviate a feeling of agitation. He does not want to watch tv because he thinks a better use of his time would be to get myself together. He has refused at allow his mom to visit. No suicidal thoughts. He denies feeling depressed but he admits to feeling angry at completely random times. He also thinks he has been arrogant and prideful. Eye contact good. Blocking much improved. Much less evidence of internal distraction. 08-05-2021: Leon admits to feeling better today. He has showered. Compliant with medications. He continues to feel agitated now and then but not nearly so badly as at admission. He is still suspicious and dubious about many things. He is beginning to eat. Still doesn't want his mom to visit. He feels tired from medications and he doesn't like that feeling. No other side effects. 08-06-2021: Leon continues to be compliant with medications and he is beginning to want to be discharged. His recent bizarre behavior seems to be related to conflicting internal thought processes. Recently, his destructive ideas took precedence. He was trying to get away from his mother because he knows she will prevent him from doing things that reflect poor judgment. He continues to lack judgment, thinking it a sound idea to ask others for halfway by knocking on strangers' door and asking to cook his groundhog in their homes because he was hungry. He also thinks it is plausible to go to [facility] with a restorationism group, even though he cannot pay his way. Maybe they will just take me. He asked me if he should trust his mother. I replied that of all human beings, she has his best interest at heart. He agreed to meet with her prior to discharge. He still doubts that he is mentally ill. 08-07-2021: Leon has regressed some since yesterday. He wants to go home, but not to his mother's house. Then he agreed to temporarily do so. He seems to have ideas about taking off again once he is released. He was more reluctant to answer benign questions today. 08-08-2021: Leon was a little more open today. Saw him with his mom. He was very withdrawn at first but seemed to relax just a little as time went on. I brought up the plan of adding a second MCCOY and he did not object. He sill complains of occasional agitation. He remains very cautious. He does admit to having problems sorting out good ideas vs poor judgment. Eating better every day. 08/09/2021: This was the first time Leon met me today and he was a little hesitant to speak with me. He answered questions minimally, stating he slept well and was eating. He planned to attend group today. He remains willing to take an additional injection of medication and is taking po medication at this time. 08/13/2021: Leon is more conversant today, stating as I enter the room that he is willing to take the zyprexa injection . Explained to him that Dr. Perez is working on this. He reports going to groups, getting good sleep. He states his appetite is good; however, he cannot eat pork, potatoes and grapes. When asked the reason for this, he states mu-ism . He asks about when he will go home and is told that Dr. Perez will be making that decision. He states he needs to go home and take care of some things that he destroyed while home, like my social security card and my debit card . He is cooperative. 08-14-2021: After discussion with mom, we agreed to discharge today on oral Zyprexa. I emphasized the importance of Leon's compliance and he seems eager to do so at this time. He is also willing to allow his mother to assist in keeping track of bid dosing. MCCOY Zyprexa will take setting up a registered clinic and pharmacy which won't happen quickly. I warned Leon that non-compliance leading to deterioration will lead to hospitalization and the addition of Prolixin-D or Haldol-D which he may not tolerate as well as he does the Zyprexa. He indicated his understanding. Plan: Discharge to outpatient follow-up [facility] 08-22-2021 Problem: Actual or potential alteration in health Goal: Absence of healthcare acquired conditions Outcome: Met Goal: Knowledge of Interdisciplinary Plan of Care Outcome: Not Met Goal: Knowledge of Enviroment Outcome: Partially Met Problem: Cognitive-Perceptual Pattern - Impaired Goal: Improved thought processes Outcome: Not Met Goal: Improved environmental perceptions Outcome: Not Met Problem: Coping - Ineffective, Family Goal: Effective coping Outcome: Not Met Goal: Knowledge of problem-solving techniques Outcome: Not Met Goal: Knowledge of community resources Outcome: Not Addressed Goal: Participation in family member care Outcome: Not Addressed Problem: Coping- Ineffective Goal: Effective coping Outcome: Not Met Problem: Health Maintenance - Impaired Goal: Knowledge of disease process Outcome: Not Met Goal: Able to perform ADL Outcome: Partially Met Goal: Improved sleep pattern Outcome: Not Met Goal: Nutrition intake to meet estimated needs Outcome: Partially Met Problem: Mood - Altered Goal: Appropriate social interaction Outcome: Not Met Problem: Social Interaction - Impaired Goal: Appropriate social interaction Outcome: Not Met Goal: Participation in group activities Outcome: Not Met Problem: Violence - Risk of, Self/Other-Directed Goal: Absence of violence Outcome: Met Problem: Plan for Discharge Goal: Knowledge of discharge plan and instructions Outcome: Not Addressed Problem: Actual or potential alteration in health Goal: Knowledge of Interdisciplinary Plan of Care Outcome: Not Met Problem: Cognitive-Perceptual Pattern - Impaired Goal: Improved thought processes Outcome: Not Met Goal: Improved environmental perceptions Outcome: Not Met Problem: Coping - Ineffective, Family Goal: Effective coping Outcome: Not Met Goal: Knowledge of problem-solving techniques Outcome: Not Met Goal: Knowledge of community resources Outcome: Not Met Goal: Participation in family member care Outcome: Not Met Problem: Coping- Ineffective Goal: Effective coping Outcome: Not Met Problem: Health Maintenance - Impaired Goal: Knowledge of disease process Outcome: Not Met Goal: Improved sleep pattern Outcome: Not Met Problem: Mood - Altered Goal: Appropriate social interaction Outcome: Not Met Problem: Social Interaction - Impaired Goal: Appropriate social interaction Outcome: Not Met Goal: Participation in group activities Outcome: Not Met Problem: Actual or potential alteration in health Goal: Absence of healthcare acquired conditions Outcome: Partially Met Goal: Knowledge of Enviroment Outcome: Partially Met Problem: Health Maintenance - Impaired Goal: Able to perform ADL Outcome: Partially Met Goal: Nutrition intake to meet estimated needs Outcome: Partially Met Problem: Violence - Risk of, Self/Other-Directed Goal: Absence of violence Outcome: Partially Met Problem: Plan for Discharge Goal: Knowledge of discharge plan and instructions Outcome: Not Addressed Goal: Knowledge of medication management Outcome: Not Addressed Goal: Knowledge of need for follow-up care Outcome: Not Addressed documented in this encounter [facility] 08-14-2021 Note Formatting of this n ote might be different from the original. Problem: Health Maintenance - Impaired Goal: Able to perform ADL 08/14/20211656 by Tiara Durbin RN Outcome: Completed 08/14/20211649 by Tiara Durbin RN Outcome: Met Goal: Improved sleep pattern 08/14/20211656 by Tiara Durbin RN Outcome: Completed 08/14/20211649 by Tiara Durbin RN Outcome: Not Addressed Goal: Nutrition intake to meet estimated needs 08/14/20211656 by Tiara Durbin RN Outcome: Completed 08/14/20211649 by Tiara Durbin RN Outcome: Not Addressed Goal: Knowledge of disease process 08/14/20211656 by Tiara Durbin RN Outcome: Completed 08/14/20211649 by Tiara Durbin RN Outcome: Not Addressed Problem: Mood - Altered Goal: Improved mood stability 08/14/20211656 by Tiara Durbin RN Outcome: Completed 08/14/20211649 by Tiara Durbin RN Outcome: Partially Met Problem: Self-esteem - Low Goal: Improved self-esteem 08/14/20211656 by Tiara Durbin RN Outcome: Completed 08/14/20211649 by Tiara Durbin RN Outcome: Partially Met Problem: Thought Process - Altered Goal: Improved thought processes 08/14/20211656 by Tiara Durbin RN Outcome: Completed 08/14/20211649 by Tiara Durbin RN Outcome: Partially Met Problem: Violence - Risk of, Self/Other-Directed Goal: Absence of violence 08/14/20211656 by Tiara Durbin RN Outcome: Completed 08/14/20211649 by Tiara Durbin RN Outcome: Met Problem: Plan for Discharge Goal: Knowledge of discharge plan and instructions 08/14/20211656 by Tiara Durbin RN Outcome: Completed 08/14/20211649 by Tiara Durbin RN Outcome: Not Addressed Goal: Knowledge of medication management 08/14/20211656 by Tiara Durbin RN Outcome: Completed 08/14/20211649 by Tiara Durbin RN Outcome: Not Addressed Goal: Knowledge of need for follow-up care 08/14/20211656 by Tiara Durbin RN Outcome: Completed 08/14/20211649 by Tiara Durbin RN Outcome: Not Addressed [facility] 08-14-2021 Hospital course Narrative Inpatient Psychiatry Discharge Summary Patient Name: Leon Atkinson MR #: [id number] : 2000 Admit Date: 3000704 Discharge Date/Time: No discharge date for patient encounter. Clinical Summary Reason for Hospitalization: Acute deterioration in chronic schizoaffective disorder, bipolar type, likely secondary to non-compliance with oral medications. Discharge Diagnoses and Associated Hospital Course: * Undifferentiated schizophrenia (HCC) Assessment & Plan A: Leon has experienced a deterioration in his symptoms in the past week. Mother reports that he was doing relatively well, even asking for hugs and expressing his love for her. Three days ago, he spent the night wandering around all night outside without warm clothing. He was carrying a groundhog and asking neighbors for a hatchet so he could cut it up and eat it. Police returned him to his mother. The next night, he took off toward [place]. Denies hearing voices but he is obviously distracted by internal stimuli, also looking around as if he sees things. Has not been eating because of paranoid thoughts about his food. He is taking fluids. Mother reports poor sleep right before his run away behaviors. Denies suicidal and homicidal thinking. 08-02-2021: Leon has experienced periodic episodes of extreme agitation today. He has tried to charge the door to the unit and has tried to grab keys away from security guards. After prn medications, his speech and communicative capacity was actually improved. He continues to be too paranoid to eat most foods. Remains extremely paranoid. Less blocking.No as preoccupied with internal stimuli as he was at admission. Denies SI/HI. 08-03-2021: Leon has contracted not to try to escape so that he can wear his own clothes. He opposes all medications and some foods as sorcery which he defines as the combinations of simple ingredients to result in a complex substance. He states that Revelations prohibits the use of sorcery. He will not bend on this issue. 08-04-2021: Leon remains quite paranoid but his thinking is improving. He decided to take his Zyprexa and it seems to make a big difference in his agitation and his ability to communicate effectively. He is still not eating. Today is day 2 of a 3 day mu-ism fast. He is taking fluids. He says he wants to run as fast as he can to alleviate a feeling of agitation. He does not want to watch tv because he thinks a better use of his time would be to get myself together. He has refused at allow his mom to visit. No suicidal thoughts. He denies feeling depressed but he admits to feeling angry at completely random times. He also thinks he has been arrogant and prideful. Eye contact good. Blocking much improved. Much less evidence of internal distraction. 08-05-2021: Leon admits to feeling better today. He has showered. Compliant with medications. He continues to feel agitated now and then but not nearly so badly as at admission. He is still suspicious and dubious about many things. He is beginning to eat. Still doesn't want his mom to visit. He feels tired from medications and he doesn't like that feeling. No other side effects. 08-06-2021: Leon continues to be compliant with medications and he is beginning to want to be discharged. His recent bizarre behavior seems to be related to conflicting internal thought processes. Recently, his destructive ideas took precedence. He was trying to get away from his mother because he knows she will prevent him from doing things that reflect poor judgment. He continues to lack judgment, thinking it a sound idea to ask others for halfway by knocking on strangers' door and asking to cook his groundhog in their homes because he was hungry. He also thinks it is plausible to go to [facility] with a restorationism group, even though he cannot pay his way. Maybe they will just take me. He asked me if he should trust his mother. I replied that of all human beings, she has his best interest at heart. He agreed to meet with her prior to discharge. He still doubts that he is mentally ill. 08-07-2021: Leon has regressed some since yesterday. He wants to go home, but not to his mother's house. Then he agreed to temporarily do so. He seems to have ideas about taking off again once he is released. He was more reluctant to answer benign questions today. 08-08-2021: Leon was a little more open today. Saw him with his mom. He was very withdrawn at first but seemed to relax just a little as time went on. I brought up the plan of adding a second MCCOY and he did not object. He sill complains of occasional agitation. He remains very cautious. He does admit to having problems sorting out good ideas vs poor judgment. Eating better every day. 08/09/2021: This was the first time Leon met me today and he was a little hesitant to speak with me. He answered questions minimally, stating he slept well and was eating. He planned to attend group today. He remains willing to take an additional injection of medication and is taking po medication at this time. 08/13/2021: Leon is more conversant today, stating as I enter the room that he is willing to take the zyprexa injection . Explained to him that Dr. Perez is working on this. He reports going to groups, getting good sleep. He states his appetite is good; however, he cannot eat pork, potatoes and grapes. When asked the reason for this, he states mu-ism . He asks about when he will go home and is told that Dr. Perez will be making that decision. He states he needs to go home and take care of some things that he destroyed while home, like my social security card and my debit card . He is cooperative. 08-14-2021: After discussion with mom, we agreed to discharge today on oral Zyprexa. I emphasized the importance of Leon's compliance and he seems eager to do so at this time. He is also willing to allow his mother to assist in keeping track of bid dosing. MCCOY Zyprexa will take setting up a registered clinic and pharmacy which won't happen quickly. I warned Leon that non-compliance leading to deterioration will lead to hospitalization and the addition of Prolixin-D or Haldol-D which he may not tolerate as well as he does the Zyprexa. He indicated his understanding. Plan: Discharge to outpatient follow-up [facility] 08-22-2021 Consults placed Procedures Inpatient consult to Hospitalist Allergies Tylenol [acetaminophen] Procedures performed No orders of the defined types were placed in this encounter. Other tests No orders of the defined types were placed in this encounter. Studies pending at discharge None Laboratory Results: Lab Results Component Value Date CHOL 126 02/02/2021 HDL 48 02/02/2021 LDLCALC 58 02/02/2021 TRIG 99 02/02/2021 Lab Results Component Value Date HGBA1C 5.3 07/14/2018 Lab Results Component Value Date TSH 1.44 02/02/2021 Review of Systems: Constitutional, cardiac, pulmonary, neurologic, musculoskeletal, GI and systems reveiwed and negative except as noted above Mental Status Evaluation: General Appearance & Behavior: age appropriate, pleasant, cooperative, good eye contact Grooming & Hygiene: unkempt Psychomotor Activity: no psychomotor abnormalities or muscle atrophy noted Gait & Station stable gait and ability to rise from bed/chair without assistance Speech: diminished amount and soft spoken Flow of Thought: concrete Thought Associations: Intact Content of Thought: No evidence of SI/HI and paranoia Mood: fine Affect: blunted Insight: impaired Judgment: impaired Orientation: alert and oriented to person, place, time, and circumstances Memory: intact recent and remote Attention: intact Concentration: intact Language: intact Fund of Knowledge: estimated average intelligence Discharge Information PRINCIPAL DIAGNOSIS at Discharge: Undifferentiated schizophrenia (HCC) Discharge Medications: Medication List START taking these medications OLANZapine zydis 5 MG disintegrating tablet Commonly known as: ZYPREXA Dissolve 1 (one) tablet (5 mg total) on top of tongue 2 (two) times a day . CONTINUE taking these medications Invega Trinza 546 mg/1.75 mL Syrg Generic drug: paliperidone palm (3-month) Inject 1.75 mL (546 mg total) into the shoulder, thigh, or buttocks every 3 (three) months Start: 05/03/21. STOP taking these medications QUEtiapine 50 MG tablet Commonly known as: SEROQUEL Where to Get Your Medications These medications were sent to [facility] [address] [place] [id number] OLANZapine zydis 5 MG disintegrating tablet This patient is being discharged with two or more antipsychotic medications due to 3 failed trials of antipsychotic monotherapies with: risperidone, paliperidone, olanzapine. Diagnostic work up including: BMI, blood pressure, hemoglobin A1c or blood glucose, and lipid panel have been completed in the past year performed within [facility] and available in [facility]. Glucose <126mg/dL, no indication of impaired glucose tolerance or insulin resistance in fasting or nonfasting state. Tobacco cessation medication not indicated; Patient is only a someday tobacco user or doesn't use currently. Disposition: Home Follow Up: Christi Perez MD [address] [place], [place] [id number] Follow up Appt: September 05 at 12:30pm [employer];Shae [phone] Follow up Call if you need any assistance with services after discharge. Discharge Diet: Additional Information: Provider(s): Primary Care: Conrad García MD [phone]* Address: [address] [place] [address] / [place] [id number] To contact Christi Perez MD or division field inspector physician, call [phone] ([place]) for 24 hour/7 day for emergencies related to inpatient stay or to obtain results of studies pending at discharge. Patient instructions, including activity, were given to the patient/family at discharge. Please see the After Visit Summary in the medical record for details. Time spent on discharge: > 30 minutes Completed by: Christi Perez on 08/14/21, 1:17 PM documented in this encounter [facility] 08-14-2021 Note Formatting of this n ote might be different from the original. Problem: Health Maintenance - Impaired Goal: Able to perform ADL Outcome: Partially Met Goal: Improved sleep pattern Outcome: Partially Met Goal: Nutrition intake to meet estimated needs Outcome: Partially Met Goal: Knowledge of disease process Outcome: Partially Met Problem: Mood - Altered Goal: Improved mood stability Outcome: Partially Met Problem: Self-esteem - Low Goal: Improved self-esteem Outcome: Partially Met Problem: Thought Process - Altered Goal: Improved thought processes Outcome: Partially Met Problem: Violence - Risk of, Self/Other-Directed Goal: Absence of violence Outcome: Met Problem: Plan for Discharge Goal: Knowledge of discharge plan and instructions Outcome: Not Addressed Problem: Plan for Discharge Goal: Knowledge of medication management Outcome: Partially Met Problem: Plan for Discharge Goal: Knowledge of need for follow-up care Outcome: Not Addressed [facility] 08-13-2021 Note Formatting of this n ote might be different from the original. Problem: Health Maintenance - Impaired Goal: Able to perform ADL Outcome: Met Problem: Violence - Risk of, Self/Other-Directed Goal: Absence of violence Outcome: Met Problem: Health Maintenance - Impaired Goal: Improved sleep pattern Outcome: Partially Met Goal: Nutrition intake to meet estimated needs Outcome: Partially Met Goal: Knowledge of disease process Outcome: Partially Met Problem: Mood - Altered Goal: Improved mood stability Outcome: Partially Met Problem: Self-esteem - Low Goal: Improved self-esteem Outcome: Partially Met Problem: Thought Process - Altered Goal: Improved thought processes Outcome: Partially Met Problem: Plan for Discharge Goal: Knowledge of medication management Outcome: Partially Met Goal: Knowledge of need for follow-up care Outcome: Partially Met Problem: Plan for Discharge Goal: Knowledge of discharge plan and instructions Outcome: Not Addressed Problem: Plan for Discharge Goal: Knowledge of discharge plan and instructions Outcome: Not Addressed Problem: Plan for Discharge Goal: Knowledge of discharge plan and instructions Outcome: Not Addressed [facility] 08-13-2021 Note Formatting of this n ote might be different from the original. Problem: Health Maintenance - Impaired Goal: Able to perform ADL Outcome: Met Problem: Violence - Risk of, Self/Other-Directed Goal: Absence of violence Outcome: Met Problem: Health Maintenance - Impaired Goal: Improved sleep pattern Outcome: Partially Met Goal: Nutrition intake to meet estimated needs Outcome: Partially Met Goal: Knowledge of disease process Outcome: Partially Met Problem: Mood - Altered Goal: Improved mood stability Outcome: Partially Met Problem: Self-esteem - Low Goal: Improved self-esteem Outcome: Partially Met Problem: Thought Process - Altered Goal: Improved thought processes Outcome: Partially Met Problem: Plan for Discharge Goal: Knowledge of discharge plan and instructions Outcome: Not Addressed Goal: Knowledge of medication management Outcome: Not Addressed Goal: Knowledge of need for follow-up care Outcome: Not Addressed [facility] 08-12-2021 Note Formatting of this n ote might be different from the original. Problem: Violence - Risk of, Self/Other-Directed Goal: Absence of violence Outcome: Met Problem: Health Maintenance - Impaired Goal: Able to perform ADL Outcome: Partially Met Goal: Improved sleep pattern Outcome: Partially Met Goal: Nutrition intake to meet estimated needs Outcome: Partially Met Goal: Knowledge of disease process Outcome: Partially Met Problem: Mood - Altered Goal: Improved mood stability Outcome: Partially Met Problem: Self-esteem - Low Goal: Improved self-esteem Outcome: Partially Met Problem: Thought Process - Altered Goal: Improved thought processes Outcome: Partially Met Problem: Plan for Discharge Goal: Knowledge of discharge plan and instructions Outcome: Partially Met Goal: Knowledge of medication management Outcome: Partially Met Goal: Knowledge of need for follow-up care Outcome: Partially Met [facility] 08-12-2021 Note Formatting of this n ote might be different from the original. Problem: Health Maintenance - Impaired Goal: Able to perform ADL Outcome: Met Problem: Violence - Risk of, Self/Other-Directed Goal: Absence of violence Outcome: Met Problem: Health Maintenance - Impaired Goal: Improved sleep pattern Outcome: Partially Met Goal: Nutrition intake to meet estimated needs Outcome: Partially Met Goal: Knowledge of disease process Outcome: Partially Met Problem: Mood - Altered Goal: Improved mood stability Outcome: Partially Met Problem: Self-esteem - Low Goal: Improved self-esteem Outcome: Partially Met Problem: Thought Process - Altered Goal: Improved thought processes Outcome: Partially Met Problem: Plan for Discharge Goal: Knowledge of discharge plan and instructions Outcome: Not Addressed Goal: Knowledge of medication management Outcome: Not Addressed Goal: Knowledge of need for follow-up care Outcome: Not Addressed [facility] 08-11-2021 Note Formatting of this n ote might be different from the original. Problem: Health Maintenance - Impaired Goal: Able to perform ADL Outcome: Partially Met Goal: Improved sleep pattern Outcome: Partially Met Goal: Nutrition intake to meet estimated needs Outcome: Partially Met Goal: Knowledge of disease process Outcome: Partially Met Problem: Mood - Altered Goal: Improved mood stability Outcome: Partially Met Problem: Self-esteem - Low Goal: Improved self-esteem Outcome: Partially Met Problem: Thought Process - Altered Goal: Improved thought processes Outcome: Partially Met Problem: Violence - Risk of, Self/Other-Directed Goal: Absence of violence Outcome: Partially Met Problem: Plan for Discharge Goal: Knowledge of discharge plan and instructions Outcome: Partially Met Goal: Knowledge of medication management Outcome: Partially Met Goal: Knowledge of need for follow-up care Outcome: Partially Met [facility] 08-11-2021 Note Formatting of this n ote might be different from the original. Problem: Health Maintenance - Impaired Goal: Able to perform ADL Outcome: Met Problem: Violence - Risk of, Self/Other-Directed Goal: Absence of violence Outcome: Met Problem: Health Maintenance - Impaired Goal: Improved sleep pattern Outcome: Partially Met Goal: Nutrition intake to meet estimated needs Outcome: Partially Met Goal: Knowledge of disease process Outcome: Partially Met Problem: Mood - Altered Goal: Improved mood stability Outcome: Partially Met Problem: Self-esteem - Low Goal: Improved self-esteem Outcome: Partially Met Problem: Thought Process - Altered Goal: Improved thought processes Outcome: Partially Met Problem: Plan for Discharge Goal: Knowledge of discharge plan and instructions Outcome: Not Addressed Goal: Knowledge of medication management Outcome: Not Addressed Goal: Knowledge of need for follow-up care Outcome: Not Addressed [facility] 08-10-2021 Note Formatting of this n ote might be different from the original. Problem: Health Maintenance - Impaired Goal: Able to perform ADL Outcome: Met Problem: Violence - Risk of, Self/Other-Directed Goal: Absence of violence Outcome: Met Problem: Health Maintenance - Impaired Goal: Improved sleep pattern Outcome: Partially Met Goal: Nutrition intake to meet estimated needs Outcome: Partially Met Goal: Knowledge of disease process Outcome: Partially Met Problem: Mood - Altered Goal: Improved mood stability Outcome: Partially Met Problem: Self-esteem - Low Goal: Improved self-esteem Outcome: Partially Met Problem: Thought Process - Altered Goal: Improved thought processes Outcome: Partially Met Problem: Plan for Discharge Goal: Knowledge of medication management Outcome: Partially Met Goal: Knowledge of need for follow-up care Outcome: Partially Met Problem: Plan for Discharge Goal: Knowledge of discharge plan and instructions Outcome: Not Addressed [facility] 08-10-2021 Note Formatting of this n ote might be different from the original. Problem: Violence - Risk of, Self/Other-Directed Goal: Absence of violence Outcome: Met Problem: Health Maintenance - Impaired Goal: Able to perform ADL Outcome: Partially Met Goal: Improved sleep pattern Outcome: Partially Met Goal: Nutrition intake to meet estimated needs Outcome: Partially Met Goal: Knowledge of disease process Outcome: Partially Met Problem: Mood - Altered Goal: Improved mood stability Outcome: Partially Met Problem: Self-esteem - Low Goal: Improved self-esteem Outcome: Partially Met Problem: Thought Process - Altered Goal: Improved thought processes Outcome: Partially Met Problem: Plan for Discharge Goal: Knowledge of discharge plan and instructions Outcome: Not Addressed Goal: Knowledge of medication management Outcome: Not Addressed Goal: Knowledge of need for follow-up care Outcome: Not Addressed [facility] 08-09-2021 Note Formatting of this n ote might be different from the original. Problem: Violence - Risk of, Self/Other-Directed Goal: Absence of violence Outcome: Met Problem: Health Maintenance - Impaired Goal: Able to perform ADL Outcome: Partially Met Goal: Improved sleep pattern Outcome: Partially Met Goal: Nutrition intake to meet estimated needs Outcome: Partially Met Goal: Knowledge of disease process Outcome: Partially Met Problem: Mood - Altered Goal: Improved mood stability Outcome: Partially Met Problem: Self-esteem - Low Goal: Improved self-esteem Outcome: Partially Met Problem: Thought Process - Altered Goal: Improved thought processes Outcome: Partially Met Problem: Plan for Discharge Goal: Knowledge of medication management Outcome: Partially Met Goal: Knowledge of need for follow-up care Outcome: Partially Met Problem: Plan for Discharge Goal: Knowledge of discharge plan and instructions Outcome: Not Addressed [facility] 08-09-2021 Note Formatting of this n ote might be different from the original. Problem: Actual or potential alteration in health Goal: Absence of healthcare acquired conditions Outcome: Met Problem: Violence - Risk of, Self/Other-Directed Goal: Absence of violence Outcome: Met Problem: Actual or potential alteration in health Goal: Knowledge of Interdisciplinary Plan of Care Outcome: Partially Met Goal: Knowledge of Enviroment Outcome: Partially Met Problem: Cognitive-Perceptual Pattern - Impaired Goal: Improved thought processes Outcome: Partially Met Goal: Improved environmental perceptions Outcome: Partially Met Problem: Coping - Ineffective, Family Goal: Effective coping Outcome: Partially Met Goal: Knowledge of problem-solving techniques Outcome: Partially Met Goal: Knowledge of community resources Outcome: Partially Met Goal: Participation in family member care Outcome: Partially Met Problem: Coping- Ineffective Goal: Effective coping Outcome: Partially Met Problem: Health Maintenance - Impaired Goal: Knowledge of disease process Outcome: Partially Met Goal: Able to perform ADL Outcome: Partially Met Goal: Improved sleep pattern Outcome: Partially Met Goal: Nutrition intake to meet estimated needs Outcome: Partially Met Problem: Mood - Altered Goal: Appropriate social interaction Outcome: Partially Met Problem: Social Interaction - Impaired Goal: Appropriate social interaction Outcome: Partially Met Goal: Participation in group activities Outcome: Partially Met Problem: Plan for Discharge Goal: Knowledge of discharge plan and instructions Outcome: Not Addressed Goal: Knowledge of medication management Outcome: Not Addressed Goal: Knowledge of need for follow-up care Outcome: Not Addressed [facility] 08-08-2021 Note Formatting of this n ote might be different from the original. Problem: Actual or potential alteration in health Goal: Absence of healthcare acquired conditions Outcome: Partially Met Goal: Knowledge of Interdisciplinary Plan of Care Outcome: Partially Met Goal: Knowledge of Enviroment Outcome: Partially Met Problem: Cognitive-Perceptual Pattern - Impaired Goal: Improved thought processes Outcome: Partially Met Goal: Improved environmental perceptions Outcome: Partially Met Problem: Coping - Ineffective, Family Goal: Effective coping Outcome: Partially Met Goal: Knowledge of problem-solving techniques Outcome: Partially Met Goal: Knowledge of community resources Outcome: Partially Met Goal: Participation in family member care Outcome: Partially Met Problem: Health Maintenance - Impaired Goal: Knowledge of disease process Outcome: Partially Met Goal: Able to perform ADL Outcome: Partially Met Goal: Improved sleep pattern Outcome: Partially Met Goal: Nutrition intake to meet estimated needs Outcome: Partially Met Problem: Mood - Altered Goal: Appropriate social interaction Outcome: Partially Met Problem: Social Interaction - Impaired Goal: Appropriate social interaction Outcome: Partially Met Goal: Participation in group activities Outcome: Partially Met Problem: Violence - Risk of, Self/Other-Directed Goal: Absence of violence Outcome: Partially Met Problem: Plan for Discharge Goal: Knowledge of discharge plan and instructions Outcome: Partially Met Goal: Knowledge of medication management Outcome: Partially Met Goal: Knowledge of need for follow-up care Outcome: Partially Met [facility] 08-08-2021 Note Formatting of this n ote might be different from the original. Problem: Actual or potential alteration in health Goal: Absence of healthcare acquired conditions Outcome: Met Problem: Violence - Risk of, Self/Other-Directed Goal: Absence of violence Outcome: Met Problem: Actual or potential alteration in health Goal: Knowledge of Interdisciplinary Plan of Care Outcome: Partially Met Goal: Knowledge of Enviroment Outcome: Partially Met Problem: Cognitive-Perceptual Pattern - Impaired Goal: Improved thought processes Outcome: Partially Met Goal: Improved environmental perceptions Outcome: Partially Met Problem: Coping - Ineffective, Family Goal: Effective coping Outcome: Partially Met Goal: Knowledge of problem-solving techniques Outcome: Partially Met Goal: Knowledge of community resources Outcome: Partially Met Problem: Coping- Ineffective Goal: Effective coping Outcome: Partially Met Problem: Health Maintenance - Impaired Goal: Knowledge of disease process Outcome: Partially Met Goal: Able to perform ADL Outcome: Partially Met Goal: Improved sleep pattern Outcome: Partially Met Goal: Nutrition intake to meet estimated needs Outcome: Partially Met Problem: Mood - Altered Goal: Appropriate social interaction Outcome: Partially Met Problem: Social Interaction - Impaired Goal: Appropriate social interaction Outcome: Partially Met Problem: Coping - Ineffective, Family Goal: Participation in family member care Outcome: Not Addressed Problem: Social Interaction - Impaired Goal: Participation in group activities Outcome: Not Addressed Problem: Plan for Discharge Goal: Knowledge of discharge plan and instructions Outcome: Not Addressed Goal: Knowledge of medication management Outcome: Not Addressed Goal: Knowledge of need for follow-up care Outcome: Not Addressed [facility] 08-07-2021 Note Formatting of this n ote might be different from the original. Problem: Actual or potential alteration in health Goal: Absence of healthcare acquired conditions Outcome: Met Goal: Knowledge of Enviroment Outcome: Met Problem: Violence - Risk of, Self/Other-Directed Goal: Absence of violence Outcome: Met Problem: Actual or potential alteration in health Goal: Knowledge of Interdisciplinary Plan of Care Outcome: Partially Met Problem: Cognitive-Perceptual Pattern - Impaired Goal: Improved thought processes Outcome: Partially Met Goal: Improved environmental perceptions Outcome: Partially Met Problem: Coping - Ineffective, Family Goal: Effective coping Outcome: Partially Met Goal: Knowledge of problem-solving techniques Outcome: Partially Met Goal: Knowledge of community resources Outcome: Partially Met Goal: Participation in family member care Outcome: Partially Met Problem: Coping- Ineffective Goal: Effective coping Outcome: Partially Met Problem: Health Maintenance - Impaired Goal: Knowledge of disease process Outcome: Partially Met Goal: Able to perform ADL Outcome: Partially Met Goal: Improved sleep pattern Outcome: Partially Met Goal: Nutrition intake to meet estimated needs Outcome: Partially Met Problem: Mood - Altered Goal: Appropriate social interaction Outcome: Partially Met Problem: Social Interaction - Impaired Goal: Appropriate social interaction Outcome: Partially Met Goal: Participation in group activities Outcome: Partially Met Problem: Plan for Discharge Goal: Knowledge of medication management Outcome: Partially Met Goal: Knowledge of need for follow-up care Outcome: Partially Met Problem: Plan for Discharge Goal: Knowledge of discharge plan and instructions Outcome: Not Addressed Problem: Plan for Discharge Goal: Knowledge of discharge plan and instructions Outcome: Not Addressed [facility] 08-07-2021 Note Formatting of this n ote might be different from the original. Problem: Actual or potential alteration in health Goal: Absence of healthcare acquired conditions Outcome: Met Goal: Knowledge of Enviroment Outcome: Met Problem: Violence - Risk of, Self/Other-Directed Goal: Absence of violence Outcome: Met Problem: Actual or potential alteration in health Goal: Knowledge of Interdisciplinary Plan of Care Outcome: Partially Met Problem: Cognitive-Perceptual Pattern - Impaired Goal: Improved thought processes Outcome: Partially Met Goal: Improved environmental perceptions Outcome: Partially Met Problem: Coping - Ineffective, Family Goal: Effective coping Outcome: Partially Met Goal: Knowledge of problem-solving techniques Outcome: Partially Met Goal: Knowledge of community resources Outcome: Partially Met Goal: Participation in family member care Outcome: Partially Met Problem: Coping- Ineffective Goal: Effective coping Outcome: Partially Met Problem: Health Maintenance - Impaired Goal: Knowledge of disease process Outcome: Partially Met Goal: Able to perform ADL Outcome: Partially Met Goal: Improved sleep pattern Outcome: Partially Met Goal: Nutrition intake to meet estimated needs Outcome: Partially Met Problem: Mood - Altered Goal: Appropriate social interaction Outcome: Partially Met Problem: Social Interaction - Impaired Goal: Appropriate social interaction Outcome: Partially Met Goal: Participation in group activities Outcome: Partially Met Problem: Plan for Discharge Goal: Knowledge of discharge plan and instructions Outcome: Not Addressed Goal: Knowledge of medication management Outcome: Not Addressed Goal: Knowledge of need for follow-up care Outcome: Not Addressed [facility] 08-06-2021 Note Formatting of this n ote might be different from the original. Problem: Actual or potential alteration in health Goal: Absence of healthcare acquired conditions Outcome: Met Goal: Knowledge of Enviroment Outcome: Met Problem: Social Interaction - Impaired Goal: Participation in group activities Outcome: Not Met Problem: Plan for Discharge Goal: Knowledge of need for follow-up care Outcome: Not Met Problem: Actual or potential alteration in health Goal: Knowledge of Interdisciplinary Plan of Care Outcome: Partially Met Problem: Cognitive-Perceptual Pattern - Impaired Goal: Improved thought processes Outcome: Partially Met Goal: Improved environmental perceptions Outcome: Partially Met Problem: Coping - Ineffective, Family Goal: Effective coping Outcome: Partially Met Goal: Knowledge of problem-solving techniques Outcome: Partially Met Goal: Knowledge of community resources Outcome: Partially Met Goal: Participation in family member care Outcome: Partially Met Problem: Coping- Ineffective Goal: Effective coping Outcome: Partially Met Problem: Health Maintenance - Impaired Goal: Knowledge of disease process Outcome: Partially Met Goal: Able to perform ADL Outcome: Partially Met Goal: Improved sleep pattern Outcome: Partially Met Goal: Nutrition intake to meet estimated needs Outcome: Partially Met Problem: Mood - Altered Goal: Appropriate social interaction Outcome: Partially Met Problem: Social Interaction - Impaired Goal: Appropriate social interaction Outcome: Partially Met Problem: Violence - Risk of, Self/Other-Directed Goal: Absence of violence Outcome: Partially Met Problem: Plan for Discharge Goal: Knowledge of medication management Outcome: Partially Met Problem: Plan for Discharge Goal: Knowledge of discharge plan and instructions Outcome: Not Addressed Problem: Plan for Discharge Goal: Knowledge of discharge plan and instructions Outcome: Not Addressed [facility] 08-06-2021 Note Formatting of this n ote might be different from the original. Problem: Actual or potential alteration in health Goal: Absence of healthcare acquired conditions Outcome: Met Goal: Knowledge of Enviroment Outcome: Met Problem: Violence - Risk of, Self/Other-Directed Goal: Absence of violence Outcome: Met Problem: Actual or potential alteration in health Goal: Knowledge of Interdisciplinary Plan of Care Outcome: Partially Met Problem: Cognitive-Perceptual Pattern - Impaired Goal: Improved thought processes Outcome: Partially Met Goal: Improved environmental perceptions Outcome: Partially Met Problem: Coping - Ineffective, Family Goal: Effective coping Outcome: Partially Met Goal: Knowledge of problem-solving techniques Outcome: Partially Met Goal: Knowledge of community resources Outcome: Partially Met Goal: Participation in family member care Outcome: Partially Met Problem: Coping- Ineffective Goal: Effective coping Outcome: Partially Met Problem: Health Maintenance - Impaired Goal: Knowledge of disease process Outcome: Partially Met Goal: Able to perform ADL Outcome: Partially Met Goal: Improved sleep pattern Outcome: Partially Met Goal: Nutrition intake to meet estimated needs Outcome: Partially Met Problem: Mood - Altered Goal: Appropriate social interaction Outcome: Partially Met Problem: Social Interaction - Impaired Goal: Appropriate social interaction Outcome: Partially Met Goal: Participation in group activities Outcome: Partially Met Problem: Plan for Discharge Goal: Knowledge of discharge plan and instructions Outcome: Not Addressed Goal: Knowledge of medication management Outcome: Not Addressed Goal: Knowledge of need for follow-up care Outcome: Not Addressed [facility] 08-05-2021 Note Formatting of this n ote might be different from the original. Problem: Actual or potential alteration in health Goal: Absence of healthcare acquired conditions Outcome: Met Problem: Health Maintenance - Impaired Goal: Able to perform ADL Outcome: Met Goal: Improved sleep pattern Outcome: Met Problem: Violence - Risk of, Self/Other-Directed Goal: Absence of violence Outcome: Met Problem: Actual or potential alteration in health Goal: Knowledge of Interdisciplinary Plan of Care Outcome: Partially Met Goal: Knowledge of Enviroment Outcome: Partially Met Problem: Cognitive-Perceptual Pattern - Impaired Goal: Improved thought processes Outcome: Partially Met Goal: Improved environmental perceptions Outcome: Partially Met Problem: Coping - Ineffective, Family Goal: Effective coping Outcome: Partially Met Goal: Knowledge of problem-solving techniques Outcome: Partially Met Goal: Knowledge of community resources Outcome: Partially Met Goal: Participation in family member care Outcome: Partially Met Problem: Coping- Ineffective Goal: Effective coping Outcome: Partially Met Problem: Health Maintenance - Impaired Goal: Knowledge of disease process Outcome: Partially Met Goal: Nutrition intake to meet estimated needs Outcome: Partially Met Problem: Mood - Altered Goal: Appropriate social interaction Outcome: Partially Met Problem: Social Interaction - Impaired Goal: Appropriate social interaction Outcome: Partially Met Goal: Participation in group activities Outcome: Partially Met Problem: Plan for Discharge Goal: Knowledge of discharge plan and instructions Outcome: Partially Met Goal: Knowledge of medication management Outcome: Partially Met Goal: Knowledge of need for follow-up care Outcome: Partially Met [facility] 08-05-2021 Initial evaluation note Staff informed this literary writer that pt had verbalized willingness to speak to this literary writer. Upon entering room, pt was sitting on his bed completely covered with his blanket. It took pt several seconds to respond to literary writer during assessment. BEHAVIORAL HEALTH EVALUATION REASON FOR ADMISSION: I was involuntarily put here . When asked if he knew why, pt stated I have no idea STRESSORS: denied any stressors COPING SKILLS: running is better than walking TYPICAL DAY: refused to answer LEISURE INTERESTS: refused to answer SUPPORTS: per chart; mother STRENGTHS: refused to answer PT'S GOAL: I don't want to answer ADDITIONAL INFORMATION: Pt remained sitting on his bed throughout, did not make any eye contact, answers were delayed. GROUPS: Goal Group and AM Warm Up [facility] 08-05-2021 Note Formatting of this n ote might be different from the original. Problem: Actual or potential alteration in health Goal: Absence of healthcare acquired conditions Outcome: Met Goal: Knowledge of Enviroment Outcome: Met Problem: Violence - Risk of, Self/Other-Directed Goal: Absence of violence Outcome: Met Problem: Health Maintenance - Impaired Goal: Nutrition intake to meet estimated needs Outcome: Not Met Problem: Social Interaction - Impaired Goal: Participation in group activities Outcome: Not Met Problem: Actual or potential alteration in health Goal: Knowledge of Interdisciplinary Plan of Care Outcome: Partially Met Problem: Cognitive-Perceptual Pattern - Impaired Goal: Improved thought processes Outcome: Partially Met Goal: Improved environmental perceptions Outcome: Partially Met Problem: Coping - Ineffective, Family Goal: Effective coping Outcome: Partially Met Goal: Knowledge of problem-solving techniques Outcome: Partially Met Goal: Knowledge of community resources Outcome: Partially Met Goal: Participation in family member care Outcome: Partially Met Problem: Coping- Ineffective Goal: Effective coping Outcome: Partially Met Problem: Health Maintenance - Impaired Goal: Knowledge of disease process Outcome: Partially Met Goal: Able to perform ADL Outcome: Partially Met Goal: Improved sleep pattern Outcome: Partially Met Problem: Mood - Altered Goal: Appropriate social interaction Outcome: Partially Met Problem: Social Interaction - Impaired Goal: Appropriate social interaction Outcome: Partially Met Problem: Plan for Discharge Goal: Knowledge of discharge plan and instructions Outcome: Not Addressed Goal: Knowledge of medication management Outcome: Not Addressed Goal: Knowledge of need for follow-up care Outcome: Not Addressed [facility] 08-05-2021 Initial evaluation note Attempted to complete eval at this time, again pt refused to talk to this literary writer [facility] 08-04-2021 Note Formatting of this n ote might be different from the original. Problem: Actual or potential alteration in health Goal: Absence of healthcare acquired conditions Outcome: Met Problem: Violence - Risk of, Self/Other-Directed Goal: Absence of violence Outcome: Met Problem: Actual or potential alteration in health Goal: Knowledge of Interdisciplinary Plan of Care Outcome: Partially Met Goal: Knowledge of Enviroment Outcome: Partially Met Problem: Cognitive-Perceptual Pattern - Impaired Goal: Improved thought processes Outcome: Partially Met Goal: Improved environmental perceptions Outcome: Partially Met Problem: Coping - Ineffective, Family Goal: Effective coping Outcome: Partially Met Goal: Knowledge of problem-solving techniques Outcome: Partially Met Goal: Knowledge of community resources Outcome: Partially Met Goal: Participation in family member care Outcome: Partially Met Problem: Coping- Ineffective Goal: Effective coping Outcome: Partially Met Problem: Health Maintenance - Impaired Goal: Knowledge of disease process Outcome: Partially Met Goal: Able to perform ADL Outcome: Partially Met Goal: Improved sleep pattern Outcome: Partially Met Goal: Nutrition intake to meet estimated needs Outcome: Partially Met Problem: Mood - Altered Goal: Appropriate social interaction Outcome: Partially Met Problem: Social Interaction - Impaired Goal: Appropriate social interaction Outcome: Partially Met Goal: Participation in group activities Outcome: Partially Met Problem: Plan for Discharge Goal: Knowledge of discharge plan and instructions Outcome: Partially Met Goal: Knowledge of medication management Outcome: Partially Met Goal: Knowledge of need for follow-up care Outcome: Partially Met [facility] 08-04-2021 Initial evaluation note Attempted to complete eval. Pt was standing in room at door way. Explained reason for assessment. Pt politely stated I don't want to answer any questions . Will continue to attempt. [facility] 08-04-2021 Note Formatting of this n ote might be different from the original. Problem: Actual or potential alteration in health Goal: Absence of healthcare acquired conditions Outcome: Met Problem: Violence - Risk of, Self/Other-Directed Goal: Absence of violence Outcome: Met Problem: Actual or potential alteration in health Goal: Knowledge of Interdisciplinary Plan of Care Outcome: Not Met Problem: Cognitive-Perceptual Pattern - Impaired Goal: Improved thought processes Outcome: Not Met Goal: Improved environmental perceptions Outcome: Not Met Problem: Coping - Ineffective, Family Goal: Effective coping Outcome: Not Met Goal: Knowledge of problem-solving techniques Outcome: Not Met Goal: Knowledge of community resources Outcome: Not Met Goal: Participation in family member care Outcome: Not Met Problem: Coping- Ineffective Goal: Effective coping Outcome: Not Met Problem: Health Maintenance - Impaired Goal: Knowledge of disease process Outcome: Not Met Goal: Nutrition intake to meet estimated needs Outcome: Not Met Problem: Mood - Altered Goal: Appropriate social interaction Outcome: Not Met Problem: Social Interaction - Impaired Goal: Appropriate social interaction Outcome: Not Met Goal: Participation in group activities Outcome: Not Met Problem: Plan for Discharge Goal: Knowledge of medication management Outcome: Not Met Goal: Knowledge of need for follow-up care Outcome: Not Met Problem: Actual or potential alteration in health Goal: Knowledge of Enviroment Outcome: Partially Met Problem: Health Maintenance - Impaired Goal: Able to perform ADL Outcome: Partially Met Goal: Improved sleep pattern Outcome: Partially Met Problem: Plan for Discharge Goal: Knowledge of discharge plan and instructions Outcome: Not Addressed [facility] 08-04-2021 Initial evaluation note Attempted to complete eval at this time. Pt did carry on a brief conversation with this literary writer. Shared he was feeling better . When asked in what way was he feeling better he replied I'm in a better mind set . When asked if he would be willing to complete his assessment at this time, he replied no [facility] 08-03-2021 Note Formatting of this n ote might be different from the original. Problem: Actual or potential alteration in health Goal: Absence of healthcare acquired conditions Outcome: Met Problem: Violence - Risk of, Self/Other-Directed Goal: Absence of violence Outcome: Met Problem: Actual or potential alteration in health Goal: Knowledge of Interdisciplinary Plan of Care Outcome: Not Met Goal: Knowledge of Enviroment Outcome: Not Met Problem: Cognitive-Perceptual Pattern - Impaired Goal: Improved thought processes Outcome: Not Met Goal: Improved environmental perceptions Outcome: Not Met Problem: Coping - Ineffective, Family Goal: Effective coping Outcome: Not Met Goal: Knowledge of problem-solving techniques Outcome: Not Met Goal: Knowledge of community resources Outcome: Not Met Goal: Participation in family member care Outcome: Not Met Problem: Coping- Ineffective Goal: Effective coping Outcome: Not Met Problem: Health Maintenance - Impaired Goal: Knowledge of disease process Outcome: Not Met Goal: Nutrition intake to meet estimated needs Outcome: Not Met Problem: Mood - Altered Goal: Appropriate social interaction Outcome: Not Met Problem: Social Interaction - Impaired Goal: Appropriate social interaction Outcome: Not Met Goal: Participation in group activities Outcome: Not Met Problem: Plan for Discharge Goal: Knowledge of discharge plan and instructions Outcome: Not Met Goal: Knowledge of medication management Outcome: Not Met Goal: Knowledge of need for follow-up care Outcome: Not Met [facility] 08-03-2021 Note Formatting of this n ote might be different from the original. Problem: Actual or potential alteration in health Goal: Absence of healthcare acquired conditions Outcome: Met Goal: Knowledge of Interdisciplinary Plan of Care Outcome: Partially Met Goal: Knowledge of Enviroment Outcome: Partially Met Problem: Cognitive-Perceptual Pattern - Impaired Goal: Improved thought processes Outcome: Not Met Goal: Improved environmental perceptions Outcome: Not Met Problem: Coping - Ineffective, Family Goal: Effective coping Outcome: Not Met Goal: Knowledge of problem-solving techniques Outcome: Not Met Goal: Knowledge of community resources Outcome: Not Addressed Goal: Participation in family member care Outcome: Not Addressed Problem: Coping- Ineffective Goal: Effective coping Outcome: Not Met Problem: Health Maintenance - Impaired Goal: Knowledge of disease process Outcome: Not Met Goal: Able to perform ADL Outcome: Partially Met Goal: Improved sleep pattern Outcome: Not Met Goal: Nutrition intake to meet estimated needs Outcome: Not Met Problem: Mood - Altered Goal: Appropriate social interaction Outcome: Not Met Problem: Social Interaction - Impaired Goal: Appropriate social interaction Outcome: Not Met Goal: Participation in group activities Outcome: Not Met Problem: Violence - Risk of, Self/Other-Directed Goal: Absence of violence Outcome: Met Problem: Plan for Discharge Goal: Knowledge of discharge plan and instructions Outcome: Not Addressed Goal: Knowledge of medication management Outcome: Not Addressed Goal: Knowledge of need for follow-up care Outcome: Not Addressed [facility] 08-02-2021 Note Formatting of this n ote might be different from the original. Problem: Actual or potential alteration in health Goal: Absence of healthcare acquired conditions Outcome: Not Met Goal: Knowledge of Interdisciplinary Plan of Care Outcome: Not Met Goal: Knowledge of Enviroment Outcome: Not Met Problem: Cognitive-Perceptual Pattern - Impaired Goal: Improved thought processes Outcome: Not Met Goal: Improved environmental perceptions Outcome: Not Met Problem: Coping - Ineffective, Family Goal: Effective coping Outcome: Not Met Goal: Knowledge of problem-solving techniques Outcome: Not Met Goal: Knowledge of community resources Outcome: Not Met Goal: Participation in family member care Outcome: Not Met Problem: Coping- Ineffective Goal: Effective coping Outcome: Not Met Problem: Health Maintenance - Impaired Goal: Knowledge of disease process Outcome: Not Met Goal: Able to perform ADL Outcome: Not Met Goal: Improved sleep pattern Outcome: Not Met Goal: Nutrition intake to meet estimated needs Outcome: Not Met Problem: Social Interaction - Impaired Goal: Appropriate social interaction Outcome: Not Met Goal: Participation in group activities Outcome: Not Met Problem: Violence - Risk of, Self/Other-Directed Goal: Absence of violence Outcome: Not Met Problem: Plan for Discharge Goal: Knowledge of discharge plan and instructions Outcome: Not Met Goal: Knowledge of medication management Outcome: Not Met Goal: Knowledge of need for follow-up care Outcome: Not Met [facility] 08-02-2021 Note Formatting of this n ote might be different from the original. Problem: Actual or potential alteration in health Goal: Absence of healthcare acquired conditions Outcome: Met Goal: Knowledge of Interdisciplinary Plan of Care Outcome: Not Met Goal: Knowledge of Enviroment Outcome: Not Met Problem: Cognitive-Perceptual Pattern - Impaired Goal: Improved thought processes Outcome: Not Met Goal: Improved environmental perceptions Outcome: Not Met Problem: Coping - Ineffective, Family Goal: Effective coping Outcome: Not Met Goal: Knowledge of problem-solving techniques Outcome: Not Addressed Goal: Knowledge of community resources Outcome: Not Addressed Goal: Participation in family member care Outcome: Not Addressed Problem: Coping- Ineffective Goal: Effective coping Outcome: Not Met Problem: Health Maintenance - Impaired Goal: Knowledge of disease process Outcome: Not Met Goal: Able to perform ADL Outcome: Partially Met Goal: Improved sleep pattern Outcome: Not Met Goal: Nutrition intake to meet estimated needs Outcome: Partially Met Problem: Mood - Altered Goal: Appropriate social interaction Outcome: Not Met Problem: Social Interaction - Impaired Goal: Appropriate social interaction Outcome: Not Met Goal: Participation in group activities Outcome: Not Met Problem: Violence - Risk of, Self/Other-Directed Goal: Absence of violence Outcome: Partially Met Problem: Plan for Discharge Goal: Knowledge of discharge plan and instructions Outcome: Not Addressed Goal: Knowledge of medication management Outcome: Not Addressed Goal: Knowledge of need for follow-up care Outcome: Not Addressed [facility] 08-02-2021 Note Formatting of this n ote is different from the original. 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 Diagnosis Wyocena I: Schizophrenia Wyocena II: No diagnosis Wyocena III: Patient Active Problem List Diagnosis Date Noted Schizophrenia, first episode, currently in partial remission ([facility]) 08/12/2018 Schizophrenia ([facility]) 02/02/2021 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 Wyocena IV: other psychosocial or environmental problems Wyocena V: 21-30 behavior considerably influenced by delusions or hallucinations OR serious impairment in judgment, communication OR inability to function in almost all areas Reason for Hospitalization Reason for Hospitalization: Psychosis Expected Discharge Date: ELOS: 7 days Precautions Precautions: Unpredictable, Suicide Patient Presenting Issues: Patient's Primary Presenting Issue Patient's Primary Presenting Issue: Psychosis Psychosis Symptoms: Auditory hallucinations, Visual hallucinations, Paranoia, Disorganized Psychosis Treatment Goals: Reduction in psychotic symptoms and behaviors Days To Improvement Of Goal: 7 Psychosis Interventions: Medication management/evaluation, Medication education, Group psychoeducation, Handouts psychoeducation, Individual psychoeducation, Family education/meeting, Develop personal safety plan Status Of Goal: Unchanged Patient's Secondary Presenting Issue Patient's Secondary Presenting Issue: Mood instablilty Mood Instability Symptoms: Thelma Mood Instability Treatment Goals: reduction in hyperactivity and agitation, impulsiveness Days To Improvement Of Goal: 7 Mood Instability Interventions: Medication management/evaluation, Pain and symptom management, Medication education, Group psychoeduction, Handouts psychoeducation, Individual psychoeducation, Famiily education/meeting, Develop personal safety plan Status Of Goal: Unchanged Precautions Precautions: Unpredictable, Suicide Patient Strengths Patient Strengths: Family/friends, Housing, Intellectual abilities, Mental health services, Physical health Patient Limitations Patient Limitations: Patient is involuntary, Other (Comment) Discharge Needs Anticipated Facility Type: Psychiatric aftercare, Community mental health Criteria For Discharge Criteria For Discharge: Goals met, Maximum benefit obtained Additional Comments: Physician, Registered Nurse, Downstairs Maid, Adjunct Therapist included in treatment team discussion. Treatment team members present Christi Perez MD Patient Signature Date Patient's Response To Treatment Plan: Physician Signature Date [facility] 08-01-2021 Note Formatting of this n ote might be different from the original. Problem: Actual or potential alteration in health Goal: Absence of healthcare acquired conditions Outcome: Met Problem: Violence - Risk of, Self/Other-Directed Goal: Absence of violence Outcome: Met Problem: Actual or potential alteration in health Goal: Knowledge of Interdisciplinary Plan of Care Outcome: Not Met Problem: Cognitive-Perceptual Pattern - Impaired Goal: Improved thought processes Outcome: Not Met Goal: Improved environmental perceptions Outcome: Not Met Problem: Coping - Ineffective, Family Goal: Effective coping Outcome: Not Met Goal: Knowledge of problem-solving techniques Outcome: Not Met Problem: Coping- Ineffective Goal: Effective coping Outcome: Not Met Problem: Health Maintenance - Impaired Goal: Knowledge of disease process Outcome: Not Met Goal: Able to perform ADL Outcome: Not Met Goal: Improved sleep pattern Outcome: Not Met Goal: Nutrition intake to meet estimated needs Outcome: Not Met Problem: Mood - Altered Goal: Appropriate social interaction Outcome: Not Met Problem: Social Interaction - Impaired Goal: Appropriate social interaction Outcome: Not Met Problem: Plan for Discharge Goal: Knowledge of medication management Outcome: Not Met Problem: Actual or potential alteration in health Goal: Knowledge of Enviroment Outcome: Partially Met Problem: Coping - Ineffective, Family Goal: Knowledge of community resources Outcome: Not Addressed Goal: Participation in family member care Outcome: Not Addressed Problem: Social Interaction - Impaired Goal: Participation in group activities Outcome: Not Addressed Problem: Plan for Discharge Goal: Knowledge of discharge plan and instructions Outcome: Not Addressed Goal: Knowledge of need for follow-up care Outcome: Not Addressed [facility] 08-01-2021 History and physical note Psychiatry History and Physical Patient Name: Leon Atkinson MR #: [id number] : 2000 Admit Date: [id number] Primary Care Provider: Conrad García MD Assessment Leon Atkinson is a 20 y.o. male presenting with an exacerbation of his schizophrenia with severe paranoia, agitation, blocking and probable hallucinations. He is engaging in dangerous wandering and bizarre behaviors. Diagnosis & Plan/Recommendations PRINCIPAL DIAGNOSIS: Undifferentiated schizophrenia (HCC) Wyocena I: Schizophrenia Wyocena II: No diagnosis Wyocena III: see problem list Wyocena IV: Other psychosocial and environmental problems Wyocena V: 21-30: Behavior considerably influenced by delusions or hallucinations OR serious impairment in communication or judgment OR inability to function in almost all areas * Undifferentiated schizophrenia (HCC) Assessment & Plan A: Leon has experienced a deterioration in his symptoms in the past week. Mother reports that he was doing relatively well, even asking for hugs and expressing his love for her. Three days ago, he spent the night wandering around all night outside without warm clothing. He was carrying a groundhog and asking neighbors for a hatchet so he could cut it up and eat it. Police returned him to his mother. The next night, he took off toward [place]. Denies hearing voices but he is obviously distracted by internal stimuli, also looking around as if he sees things. Has not been eating because of paranoid thoughts about his food. He is taking fluids. Mother reports poor sleep right before his run away behaviors. Denies suicidal and homicidal thinking. P: Admit for patient safety and stabilization Suicide and unpredictable precautions Invega Trinza not due for another three weeks. Add supplemental olanzapine 5 mg po or IM PRN medications for anxiety, insomnia and agitation Monitor PO intake Internal medicine consult SW consult for collateral information and discharge planning Comorbid issues impacting my care plan include non-adherence. Chief Complaint: No response History of Present Illness: Leon Atkinson is a 20 y.o. male with a history of schizophrenia with onset about three years ago. His illness began with a long prodrome of gradual social withdrawal, loss of interest in life and pleasurable activities and ever-increasing mistrust of the motives of others. He has been hospitalized three or four times previous to this stay when his behaviors become unmanageable at home. He is severely paranoid at this time. He trusts no one, not even his mother, who is an RN and has cared for him optimally at home. He has various delusions, some paranoid, some bizarre. He frequently restricts what he eats, sometimes to starvation levels because he has fears of his food being poisoned. He is drinking water at this time but only eating factory-sealed snacks. He is very suspicious of medications. He denies symptoms and he does not think he is mentally ill. It is very difficult to get him to take oral meds. He has been in the community for several months now on Invega MCCOY. There have been no obvious stresses which might have caused his recent deterioration. His mother reports that he did not sleep well for the past week. Three nights ago, he went out wandering in the cold, carrying a groundhog and asking neighbors to get him a hatchet so he could cut it up and eat it. When I asked him about that, he stated, I was hungry. He was returned home by police. The next night, he took off towards [place], was brought in by police and is currently hospitalized with the permission of his mother, who is his guardian. Leon has topped caring for his personal hygiene. He displays blocking, is obviously attending to internal stimuli and is engaging in bizarre behaviors. After admission to the inpatient unit, he has attempted to charge the door and fought security guards for a long time n an attempt to escape, even though he is familiar with the unit and the treatment team. He denies SI/HI. Past Psychiatric History Past diagnoses: schizophrenia Past medications: risperidone, Invega, Zyprexa Past hospitalizations: 4 Past suicide attempts: none Past self injurious behavior: starvation Outpatient linkage: sees me for medications in the [facility] The patient otherwise denies any previous psychiatric problems or diagnoses, inpatient or outpatient mental health care, suicide attempts, use of psychotropic medications, or any self injurious behavior. Family Psychiatric History Father has been diagnosed as borderline pd The patient otherwise denies any family history of mental illness or treatment, psychiatric hospitalizations, suicide attempts, or substance problems. Social History Living situation: with mother Employment: none Education: high school graduate Sexual orientation: heterosexual Marital Status: single Children: none Legal History: none Trauma History: none History: none Adventist: Spiritism Access to firearms: no Substance use History Nicotine: no Alcohol: no Illicit substances: no Rehab: no Patient is a Never Tobacco User Tobacco cessation medication not indicated Social History Socioeconomic History Marital status: Single Tobacco Use Smoking status: Never Smoker Smokeless tobacco: Never Used Vaping Use Vaping Use: Never used Substance and Sexual Activity Alcohol use: Never Drug use: Never Sexual activity: Not Currently Partners: Male Social History Social History Narrative Not on file Medical History: I have reviewed the patient's other history as below: Past Medical History: Diagnosis Date ADHD Depression Schizophrenia (HCC) Schizophrenia, first episode, currently in partial remission (HCC) 08/12/2018 Past Surgical History: Procedure Laterality Date OTHER SURGICAL HISTORY no known surgical history Family History: Family History Problem Relation Age of Onset Personality disorder Father Diabetes Maternal Grandmother Allergy Information: I have reviewed the patient's allergies as below: Tylenol [acetaminophen] Home Medications: Outpatient Medications as of 08/01/2021 Medication Sig paliperidone palm, 3-month, (Invega Trinza) 546 mg/1.75 mL Syrg Inject 1.75 mL (546 mg total) into the shoulder, thigh, or buttocks every 3 (three) months Start: 05/03/21. QUEtiapine (SEROQUEL) 50 MG tablet Take 1 (one) tablet (50 mg total) by mouth nightly . Review of Systems: Constitutional: Denies fever, chills, diaphoresis, malaise Eyes: Denies blurred vision, double vision ENT: Denies nasal congestion, sore throat Neurological: Denies headache, photophobia, weakness, numbness CVS: Denies chest pain or palpitations Respiratory: Denies dyspnea or cough Musculoskeletal: Denies joint pain or muscle aches GI: Denies nausea, vomiting, constipation, or diarrhea : Denies urinary urgency, frequency, or burning Integumentary: Denies itching or rash Endocrine: Denies heat/cold intolerance or weight loss/weight gain Physical Examination: Vital Signs: BP 126/86 Pulse (!) 115 Temp 98.2 F (36.8 C) (Oral) Resp 12 Ht 5' 10 Wt 72.4 kg (159 lb 9.8 oz) SpO2 98% BMI 22.90 kg/m Mental Status Evaluation: General Appearance & Behavior: age appropiate, uncooperative, minimally engaged and poor eye contact Grooming & Hygiene: unkempt and poor hygeine Psychomotor Activity: no psychomotor abnormalities or muscle atrophy noted Gait & Station stable gait and ability to rise from bed/chair without assistance Speech: diminished amount, soft spoken and terse Flow of Thought: concrete Thought Associations: unable to assess due to mental status Content of Thought: No evidence of SI/HI, auditory hallucinations, visual hallucinations, delusions and paranoia Mood: fine Affect: flat Insight: impaired Judgment: impaired Orientation: alert and oriented to person, place, time, and circumstances Memory: unable to assess due to mental status Attention: distracted Concentration: impaired Language: intact Fund of Knowledge: estimated average intelligence Laboratory and Additional Data Reviewed: Laboratory 08/01/21 3:52 PM Radiology 08/01/21 3:52 PM Cardiology 08/01/21 3:52 PM Medications 08/01/21 3:52 PM Transcriptions 08/01/21 3:52 PM Treatment options and alternatives reviewed with patient. Risks, benefits, side effects of all psychiatric medications discussed with patient and Guardian and informed consent obtained. All questions were answered. Christi Perez MD 08/01/2021 3:52 PM [facility] 08-01-2021 History and physical note Psychiatry History and Physical Patient Name: Leon Atkinson MR #: [id number] : 2000 Admit Date: [id number] Primary Care Provider: Conrad García MD Assessment Leon Atkinson is a 20 y.o. male presenting with an exacerbation of his schizophrenia with severe paranoia, agitation, blocking and probable hallucinations. He is engaging in dangerous wandering and bizarre behaviors. Diagnosis & Plan/Recommendations PRINCIPAL DIAGNOSIS: Undifferentiated schizophrenia (HCC) Wyocena I: Schizophrenia Wyocena II: No diagnosis Wyocena III: see problem list Wyocena IV: Other psychosocial and environmental problems Wyocena V: -: Behavior considerably influenced by delusions or hallucinations OR serious impairment in communication or judgment OR inability to function in almost all areas * Undifferentiated schizophrenia (HCC) Assessment & Plan A: Leon has experienced a deterioration in his symptoms in the past week. Mother reports that he was doing relatively well, even asking for hugs and expressing his love for her. Three days ago, he spent the night wandering around all night outside without warm clothing. He was carrying a groundhog and asking neighbors for a hatchet so he could cut it up and eat it. Police returned him to his mother. The next night, he took off toward [place]. Denies hearing voices but he is obviously distracted by internal stimuli, also looking around as if he sees things. Has not been eating because of paranoid thoughts about his food. He is taking fluids. Mother reports poor sleep right before his run away behaviors. Denies suicidal and homicidal thinking. P: Admit for patient safety and stabilization Suicide and unpredictable precautions Invega Trinza not due for another three weeks. Add supplemental olanzapine 5 mg po or IM PRN medications for anxiety, insomnia and agitation Monitor PO intake Internal medicine consult SW consult for collateral information and discharge planning Comorbid issues impacting my care plan include non-adherence. Chief Complaint: No response History of Present Illness: Leon Atkinson is a 20 y.o. male with a history of schizophrenia with onset about three years ago. His illness began with a long prodrome of gradual social withdrawal, loss of interest in life and pleasurable activities and ever-increasing mistrust of the motives of others. He has been hospitalized three or four times previous to this stay when his behaviors become unmanageable at home. He is severely paranoid at this time. He trusts no one, not even his mother, who is an RN and has cared for him optimally at home. He has various delusions, some paranoid, some bizarre. He frequently restricts what he eats, sometimes to starvation levels because he has fears of his food being poisoned. He is drinking water at this time but only eating factory-sealed snacks. He is very suspicious of medications. He denies symptoms and he does not think he is mentally ill. It is very difficult to get him to take oral meds. He has been in the community for several months now on Invega MCCOY. There have been no obvious stresses which might have caused his recent deterioration. His mother reports that he did not sleep well for the past week. Three nights ago, he went out wandering in the cold, carrying a groundhog and asking neighbors to get him a hatchet so he could cut it up and eat it. When I asked him about that, he stated, I was hungry. He was returned home by police. The next night, he took off towards [place], was brought in by police and is currently hospitalized with the permission of his mother, who is his guardian. Leon has topped caring for his personal hygiene. He displays blocking, is obviously attending to internal stimuli and is engaging in bizarre behaviors. After admission to the inpatient unit, he has attempted to charge the door and fought security guards for a long time n an attempt to escape, even though he is familiar with the unit and the treatment team. He denies SI/HI. Past Psychiatric History Past diagnoses: schizophrenia Past medications: risperidone, Invega, Zyprexa Past hospitalizations: 4 Past suicide attempts: none Past self injurious behavior: starvation Outpatient linkage: sees me for medications in the [facility] The patient otherwise denies any previous psychiatric problems or diagnoses, inpatient or outpatient mental health care, suicide attempts, use of psychotropic medications, or any self injurious behavior. Family Psychiatric History Father has been diagnosed as borderline pd The patient otherwise denies any family history of mental illness or treatment, psychiatric hospitalizations, suicide attempts, or substance problems. Social History Living situation: with mother Employment: none Education: high school graduate Sexual orientation: heterosexual Marital Status: single Children: none Legal History: none Trauma History: none History: none Adventist: Spiritism Access to firearms: no Substance use History Nicotine: no Alcohol: no Illicit substances: no Rehab: no Patient is a Never Tobacco User Tobacco cessation medication not indicated Social History Socioeconomic History Marital status: Single Tobacco Use Smoking status: Never Smoker Smokeless tobacco: Never Used Vaping Use Vaping Use: Never used Substance and Sexual Activity Alcohol use: Never Drug use: Never Sexual activity: Not Currently Partners: Male Social History Social History Narrative Not on file Medical History: I have reviewed the patient's other history as below: Past Medical History: Diagnosis Date ADHD Depression Schizophrenia (HCC) Schizophrenia, first episode, currently in partial remission (HCC) 08/12/2018 Past Surgical History: Procedure Laterality Date OTHER SURGICAL HISTORY no known surgical history Family History: Family History Problem Relation Age of Onset Personality disorder Father Diabetes Maternal Grandmother Allergy Information: I have reviewed the patient's allergies as below: Tylenol [acetaminophen] Home Medications: Outpatient Medications as of 08/01/2021 Medication Sig paliperidone palm, 3-month, (Invega Trinza) 546 mg/1.75 mL Syrg Inject 1.75 mL (546 mg total) into the shoulder, thigh, or buttocks every 3 (three) months Start: 05/03/21. QUEtiapine (SEROQUEL) 50 MG tablet Take 1 (one) tablet (50 mg total) by mouth nightly . Review of Systems: Constitutional: Denies fever, chills, diaphoresis, malaise Eyes: Denies blurred vision, double vision ENT: Denies nasal congestion, sore throat Neurological: Denies headache, photophobia, weakness, numbness CVS: Denies chest pain or palpitations Respiratory: Denies dyspnea or cough Musculoskeletal: Denies joint pain or muscle aches GI: Denies nausea, vomiting, constipation, or diarrhea : Denies urinary urgency, frequency, or burning Integumentary: Denies itching or rash Endocrine: Denies heat/cold intolerance or weight loss/weight gain Physical Examination: Vital Signs: BP 126/86 Pulse (!) 115 Temp 98.2 F (36.8 C) (Oral) Resp 12 Ht 5' 10 Wt 72.4 kg (159 lb 9.8 oz) SpO2 98% BMI 22.90 kg/m Mental Status Evaluation: General Appearance & Behavior: age appropiate, uncooperative, minimally engaged and poor eye contact Grooming & Hygiene: unkempt and poor hygeine Psychomotor Activity: no psychomotor abnormalities or muscle atrophy noted Gait & Station stable gait and ability to rise from bed/chair without assistance Speech: diminished amount, soft spoken and terse Flow of Thought: concrete Thought Associations: unable to assess due to mental status Content of Thought: No evidence of SI/HI, auditory hallucinations, visual hallucinations, delusions and paranoia Mood: fine Affect: flat Insight: impaired Judgment: impaired Orientation: alert and oriented to person, place, time, and circumstances Memory: unable to assess due to mental status Attention: distracted Concentration: impaired Language: intact Fund of Knowledge: estimated average intelligence Laboratory and Additional Data Reviewed: Laboratory 08/01/21 3:52 PM Radiology 08/01/21 3:52 PM Cardiology 08/01/21 3:52 PM Medications 08/01/21 3:52 PM Transcriptions 08/01/21 3:52 PM Treatment options and alternatives reviewed with patient. Risks, benefits, side effects of all psychiatric medications discussed with patient and Guardian and informed consent obtained. All questions were answered. Christi Perez MD 08/01/2021 3:52 PM documented in this encounter [facility] 08-01-2021 Consult note Associated Order (s): IP CONSULT TO HOSPITALIST [facility] Patient Name: Leon Atkinson : 2000 MR #: [id number] Admit Date: 07/31/2021 Physicians: Conrad García MD (Family); No ref. provider found (Referring) Leon Atkinson is a 20 y.o. male patient of oCnrad García MD with history of ADHD, Depression, Schizophrenia presented on 07/31/2021 with bizarre behavior. [facility] [place] by Christi Perez MD for medical management. Schizophrenia Management per attending psychiatrist Chest pain Pt states sharp chest pain without radiation x1 week slowly improving No prior cardiac history or risk factors Refuses any workup As there are no active medical issues, we will sign off on the patient for now. Please call us back for any concerns. Medication Reconciliation: Verified Code Status: Full Code - Unverified Quality Measures DVT Prophylaxis: ambulatory Ventura Catheter: none Disposition Discharge Location: uncertain Estimated Discharge Date: uncertain Outpatient Testing: none thus far. Chief Complaint Bizarre behavior History of Present Illness Mother called police after pt ran away. He was found wandering [place] carrying a groundhog he found on the side of the road. Patient tells me he has had a sharp chest pain for about a week which has been slowly improving but he declines any interventions or evaluations for it. He denies any prior cardiac history or significant risk factors. Past Medical History Past Medical History: Diagnosis Date ADHD Depression Schizophrenia ([facility]) Schizophrenia, first episode, currently in partial remission ([facility]) 08/12/2018 Past Surgical History Past Surgical History: Procedure Laterality Date OTHER SURGICAL HISTORY no known surgical history Family History Family History Problem Relation Age of Onset Personality disorder Father Diabetes Maternal Grandmother Social History Social History Tobacco Use Smoking Status Never Smoker Smokeless Tobacco Never Used Social History Substance and Sexual Activity Alcohol Use Never Social History Substance and Sexual Activity Drug Use Never Allergy Information I have reviewed the patient's allergies. Tylenol [acetaminophen] Home Medications Home medications were reviewed. Review Of Systems Constitutional: Denies fever, chills, weight loss Eyes: Denies vision changes ENT: Denies hearing loss, nasal congestion, sore throat CV: Denies chest pain, palpitations, peripheral edema Respiratory: Denies shortness of breath, cough, wheezing GI: Denies abdominal pain, nausea, vomiting, diarrhea, constipation : Denies dysuria, frequent urination MSK: Denies joint pain or swelling, restricted motion Integumentary: Denies skin changes, pruritis Neurological: Denies dizziness, headache, numbness or tingling Psychiatric: Schizophrenia Physical Examination BP 126/86 Pulse (!) 115 Temp 98.2 F (36.8 C) (Oral) Resp 12 Ht 5' 10 Wt 72.4 kg (159 lb 9.8 oz) SpO2 98% BMI 22.90 kg/m General Appearance: alert; well appearing; in no acute distress HEENT: Head- normocephalic; Eyes- EOMI, sclera anicteric; Ears- hearing intact; Nose- no nasal discharge; Throat- mucous membranes moist Cardiovascular: regular rate and rhythm; normal S1, S2; no murmurs, rubs, clicks or gallops; no peripheral edema Respiratory: lungs clear to auscultation; without wheezes, rales or rhonchi; on room air Abdomen: soft, non-tender, non-distended; positive bowel sounds Neurological: oriented x 3; normal speech; no focal findings or movement disorder noted Cranial Nerves: II: visual andre full. III, IV, : extraocular range intact. V: sensation intact. VII: facial symmetric with 5/5 strength. VIII: hearing intact to voice and finger rub. IX, X: palate elevates symmetrically. XI: shrugs shoulders 5/5 strength bilaterally. XII: tongue protrudes in midline. Sensation -grossly symmetrical. Motor strength 5/5 all over. DTR 2+ in the UE and LE bilaterally. Musculoskeletal: no significant deformity or tenderness to palpation Skin: normal coloration; no obvious rashes, lesions or skin breakdown Psych: flat mood Laboratory and Additional Data Reviewed Laboratory 08/01/21 2:15 PM Medications 08/01/21 2:15 PM Transcriptions 08/01/21 2:15 PM Reflex Work Phone: 08-01-2021 Consult note Associated Order (s): IP CONSULT TO [facility] Patient Name: Leon Atkinson : 2000 MR #: [id number] Admit Date: 07/31/2021 Physicians: Conrad García MD (Family); No ref. provider found (Referring) Leon Atkinson is a 20 y.o. male patient of Conrad García MD with history of ADHD, Depression, Schizophrenia presented on 07/31/2021 with bizarre behavior. [facility] consulted by Christi Perez MD for medical management. Schizophrenia Management per attending psychiatrist Chest pain Pt states sharp chest pain without radiation x1 week slowly improving No prior cardiac history or risk factors Refuses any workup As there are no active medical issues, we will sign off on the patient for now. Please call us back for any concerns. Medication Reconciliation: Verified Code Status: Full Code - Unverified Quality Measures DVT Prophylaxis: ambulatory Ventura Catheter: none Disposition Discharge Location: uncertain Estimated Discharge Date: uncertain Outpatient Testing: none thus far. Chief Complaint Bizarre behavior History of Present Illness Mother called police after pt ran away. He was [place] wandering [place] carrying a groundhog he found on the side of the road. Patient tells me he has had a sharp chest pain for about a week which has been slowly improving but he declines any interventions or evaluations for it. He denies any prior cardiac history or significant risk factors. Past Medical History Past Medical History: Diagnosis Date ADHD Depression Schizophrenia ([facility]) Schizophrenia, first episode, currently in partial remission ([facility]) 08/12/2018 Past Surgical History Past Surgical History: Procedure Laterality Date OTHER SURGICAL HISTORY no known surgical history Family History Family History Problem Relation Age of Onset Personality disorder Father Diabetes Maternal Grandmother Social History Social History Tobacco Use Smoking Status Never Smoker Smokeless Tobacco Never Used Social History Substance and Sexual Activity Alcohol Use Never Social History Substance and Sexual Activity Drug Use Never Allergy Information I have reviewed the patient's allergies. Tylenol [acetaminophen] Home Medications Home medications were reviewed. Review Of Systems Constitutional: Denies fever, chills, weight loss Eyes: Denies vision changes ENT: Denies hearing loss, nasal congestion, sore throat CV: Denies chest pain, palpitations, peripheral edema Respiratory: Denies shortness of breath, cough, wheezing GI: Denies abdominal pain, nausea, vomiting, diarrhea, constipation : Denies dysuria, frequent urination MSK: Denies joint pain or swelling, restricted motion Integumentary: Denies skin changes, pruritis Neurological: Denies dizziness, headache, numbness or tingling Psychiatric: Schizophrenia Physical Examination BP 126/86 Pulse (!) 115 Temp 98.2 F (36.8 C) (Oral) Resp 12 Ht 5' 10 Wt 72.4 kg (159 lb 9.8 oz) SpO2 98% BMI 22.90 kg/m General Appearance: alert; well appearing; in no acute distress HEENT: Head- normocephalic; Eyes- EOMI, sclera anicteric; Ears- hearing intact; Nose- no nasal discharge; Throat- mucous membranes moist Cardiovascular: regular rate and rhythm; normal S1, S2; no murmurs, rubs, clicks or gallops; no peripheral edema Respiratory: lungs clear to auscultation; without wheezes, rales or rhonchi; on room air Abdomen: soft, non-tender, non-distended; positive bowel sounds Neurological: oriented x 3; normal speech; no focal findings or movement disorder noted Cranial Nerves: II: visual andre full. III, IV, : extraocular range intact. V: sensation intact. VII: facial symmetric with 5/5 strength. VIII: hearing intact to voice and finger rub. IX, X: palate elevates symmetrically. XI: shrugs shoulders 5/5 strength bilaterally. XII: tongue protrudes in midline. Sensation -grossly symmetrical. Motor strength 5/5 all over. DTR 2+ in the UE and LE bilaterally. Musculoskeletal: no significant deformity or tenderness to palpation Skin: normal coloration; no obvious rashes, lesions or skin breakdown Psych: flat mood Laboratory and Additional Data Reviewed Laboratory 08/01/21 2:15 PM Medications 08/01/21 2:15 PM Transcriptions 08/01/21 2:15 PM documented in this encounter [facility] 08-01-2021 Initial evaluation note Attempted to complete eval at this time in pt's room. Pt refused to answer questions stating I don't want to talk to you . [facility] 08-01-2021 Evaluation + Plan note Associated Problem(s): Undifferentiated schizophrenia (HCC) A: Leon has experienced a deterioration in his symptoms in the past week. Mother reports that he was doing relatively well, even asking for hugs and expressing his love for her. Three days ago, he spent the night wandering around all night outside without warm clothing. He was carrying a groundhog and asking neighbors for a hatchet so he could cut it up and eat it. Police returned him to his mother. The next night, he took off toward [place]. Denies hearing voices but he is obviously distracted by internal stimuli, also looking around as if he sees things. Has not been eating because of paranoid thoughts about his food. He is taking fluids. Mother reports poor sleep right before his run away behaviors. Denies suicidal and homicidal thinking. 08-02-2021: Leon has experienced periodic episodes of extreme agitation today. He has tried to charge the door to the unit and has tried to grab keys away from security guards. After prn medications, his speech and communicative capacity was actually improved. He continues to be too paranoid to eat most foods. Remains extremely paranoid. Less blocking.No as preoccupied with internal stimuli as he was at admission. Denies SI/HI. 08-03-2021: Leon has contracted not to try to escape so that he can wear his own clothes. He opposes all medications and some foods as sorcery which he defines as the combinations of simple ingredients to result in a complex substance. He states that Revelations prohibits the use of sorcery. He will not bend on this issue. 08-04-2021: Leon remains quite paranoid but his thinking is improving. He decided to take his Zyprexa and it seems to make a big difference in his agitation and his ability to communicate effectively. He is still not eating. Today is day 2 of a 3 day mu-ism fast. He is taking fluids. He says he wants to run as fast as he can to alleviate a feeling of agitation. He does not want to watch tv because he thinks a better use of his time would be to get myself together. He has refused at allow his mom to visit. No suicidal thoughts. He denies feeling depressed but he admits to feeling angry at completely random times. He also thinks he has been arrogant and prideful. Eye contact good. Blocking much improved. Much less evidence of internal distraction. 08-05-2021: Leon admits to feeling better today. He has showered. Compliant with medications. He continues to feel agitated now and then but not nearly so badly as at admission. He is still suspicious and dubious about many things. He is beginning to eat. Still doesn't want his mom to visit. He feels tired from medications and he doesn't like that feeling. No other side effects. 08-06-2021: Leon continues to be compliant with medications and he is beginning to want to be discharged. His recent bizarre behavior seems to be related to conflicting internal thought processes. Recently, his destructive ideas took precedence. He was trying to get away from his mother because he knows she will prevent him from doing things that reflect poor judgment. He continues to lack judgment, thinking it a sound idea to ask others for halfway by knocking on strangers' door and asking to cook his groundhog in their homes because he was hungry. He also thinks it is plausible to go to [facility] with a restorationism group, even though he cannot pay his way. Maybe they will just take me. He asked me if he should trust his mother. I replied that of all human beings, she has his best interest at heart. He agreed to meet with her prior to discharge. He still doubts that he is mentally ill. 08-07-2021: Leon has regressed some since yesterday. He wants to go home, but not to his mother's house. Then he agreed to temporarily do so. He seems to have ideas about taking off again once he is released. He was more reluctant to answer benign questions today. 08-08-2021: Leon was a little more open today. Saw him with his mom. He was very withdrawn at first but seemed to relax just a little as time went on. I brought up the plan of adding a second MCCOY and he did not object. He sill complains of occasional agitation. He remains very cautious. He does admit to having problems sorting out good ideas vs poor judgment. Eating better every day. 08/09/2021: This was the first time Leon met me today and he was a little hesitant to speak with me. He answered questions minimally, stating he slept well and was eating. He planned to attend group today. He remains willing to take an additional injection of medication and is taking po medication at this time. 08/13/2021: Leon is more conversant today, stating as I enter the room that he is willing to take the zyprexa injection . Explained to him that Dr. Perez is working on this. He reports going to groups, getting good sleep. He states his appetite is good; however, he cannot eat pork, potatoes and grapes. When asked the reason for this, he states mu-ism . He asks about when he will go home and is told that Dr. Perez will be making that decision. He states he needs to go home and take care of some things that he destroyed while home, like my social security card and my debit card . He is cooperative. 08-14-2021: After discussion with mom, we agreed to discharge today on oral Zyprexa. I emphasized the importance of Leon's compliance and he seems eager to do so at this time. He is also willing to allow his mother to assist in keeping track of bid dosing. MCCOY Zyprexa will take setting up a registered clinic and pharmacy which won't happen quickly. I warned Leno that non-compliance leading to deterioration will lead to hospitalization and the addition of Prolixin-D or Haldol-D which he may not tolerate as well as he does the Zyprexa. He indicated his understanding. Plan: Discharge to outpatient follow-up [facility] 08-22-2021 [facility] 08-01-2021 Note Formatting of this n ote might be different from the original. Problem: Actual or potential alteration in health Goal: Absence of healthcare acquired conditions Outcome: Met Goal: Knowledge of Interdisciplinary Plan of Care Outcome: Not Met Goal: Knowledge of Enviroment Outcome: Partially Met Problem: Cognitive-Perceptual Pattern - Impaired Goal: Improved thought processes Outcome: Not Met Goal: Improved environmental perceptions Outcome: Not Met Problem: Coping - Ineffective, Family Goal: Effective coping Outcome: Not Met Goal: Knowledge of problem-solving techniques Outcome: Not Met Goal: Knowledge of community resources Outcome: Not Addressed Goal: Participation in family member care Outcome: Not Addressed Problem: Coping- Ineffective Goal: Effective coping Outcome: Not Met Problem: Health Maintenance - Impaired Goal: Knowledge of disease process Outcome: Not Met Goal: Able to perform ADL Outcome: Partially Met Goal: Improved sleep pattern Outcome: Not Met Goal: Nutrition intake to meet estimated needs Outcome: Partially Met Problem: Mood - Altered Goal: Appropriate social interaction Outcome: Not Met Problem: Social Interaction - Impaired Goal: Appropriate social interaction Outcome: Not Met Goal: Participation in group activities Outcome: Not Met Problem: Violence - Risk of, Self/Other-Directed Goal: Absence of violence Outcome: Met Problem: Plan for Discharge Goal: Knowledge of discharge plan and instructions Outcome: Not Addressed [facility] 07-31-2021 Note Formatting of this n ote might be different from the original. Problem: Actual or potential alteration in health Goal: Knowledge of Interdisciplinary Plan of Care Outcome: Not Met Problem: Cognitive-Perceptual Pattern - Impaired Goal: Improved thought processes Outcome: Not Met Goal: Improved environmental perceptions Outcome: Not Met Problem: Coping - Ineffective, Family Goal: Effective coping Outcome: Not Met Goal: Knowledge of problem-solving techniques Outcome: Not Met Goal: Knowledge of community resources Outcome: Not Met Goal: Participation in family member care Outcome: Not Met Problem: Coping- Ineffective Goal: Effective coping Outcome: Not Met Problem: Health Maintenance - Impaired Goal: Knowledge of disease process Outcome: Not Met Goal: Improved sleep pattern Outcome: Not Met Problem: Mood - Altered Goal: Appropriate social interaction Outcome: Not Met Problem: Social Interaction - Impaired Goal: Appropriate social interaction Outcome: Not Met Goal: Participation in group activities Outcome: Not Met Problem: Actual or potential alteration in health Goal: Absence of healthcare acquired conditions Outcome: Partially Met Goal: Knowledge of Enviroment Outcome: Partially Met Problem: Health Maintenance - Impaired Goal: Able to perform ADL Outcome: Partially Met Goal: Nutrition intake to meet estimated needs Outcome: Partially Met Problem: Violence - Risk of, Self/Other-Directed Goal: Absence of violence Outcome: Partially Met Problem: Plan for Discharge Goal: Knowledge of discharge plan and instructions Outcome: Not Addressed Goal: Knowledge of medication management Outcome: Not Addressed Goal: Knowledge of need for follow-up care Outcome: Not Addressed [facility] 07-11-2021 History of Present illness Narrative BEHAVIORAL HEALTH PSYCHIATRIC PROGRESS NOTE 07/11/2021 Leon Atkinson, a 20 y.o. male, for follow-up visit. He is here with his mother. Patient is referred by Conrad García MD Interval History: Leon was doing relatively well. He remains paranoid but no severe and disabling delusions. He stopped taking Zyprexa because he thinks it causes him to have night sweats. After stopping it he began to have more negative symptoms: poorer hygiene, less activity, poor motivation and little initiative. Next Trinza dose is due on 08-22. No mood disturbance or suicidal thoughts. No substance abuse. PFSH: Past Medical History: Diagnosis Date ADHD Depression Schizophrenia ([facility]) Schizophrenia, first episode, currently in partial remission ([facility]) 08/12/2018 Social History Substance and Sexual Activity Alcohol Use Never Social History Substance and Sexual Activity Drug Use Never Social History Substance and Sexual Activity Sexual Activity Not Currently Partners: Male Family History Problem Relation Age of Onset Personality disorder Father Diabetes Maternal Grandmother The following portions of the patient's history were reviewed and updated as appropriate: allergies, current medications, past family history, past medical history, past social history, past surgical history and problem list. Review of Systems Constitutional: Negative. HENT: Negative. Eyes: Negative. Respiratory: Negative. Cardiovascular: Negative. Gastrointestinal: Negative. Endocrine: Negative. Genitourinary: Negative. Musculoskeletal: Negative. Skin: Negative. Allergic/Immunologic: Negative. Neurological: Negative. Hematological: Negative. Psychiatric/Behavioral: Positive for decreased concentration and sleep disturbance. Physical Exam PSYCHIATRIC EXAM: Grooming & Hygiene: disheveled General Behavior: minimally engaged and defensive Psychomotor Activity: rigidity Speech: decreased amount Flow to Thought: concrete Thought Associations: Intact Content of Thought: delusions of persecutory Mood: ok Affect: flat Insight: poor Judgment: poor Orientation: alert and oriented to person, place, time Memory: Recent intact Attention: intact Concentration: intact Language: intact Fund of Knowledge: intact Labs/ Diagnostic Imaging reviewed: no recent data Response to Medication: Adequate ASSESSMENT AND PLAN: A: Paranoid schizophrenic. Good, supportive environment. History of non-compliance with oral medications due to poor insight. P: I attempted to convince Leon to add quetiapine 50 mg PO at bedtime and Rx sent. Mother will encourage compliance at home Follow-up plan was discussed with patient. Impression/ Plan: No Changes Wyocena I: Paranoid schizophrenia Wyocena II: No diagnosis Wyocena III: see problem list Wyocena IV: other psychosocial or environmental problems Wyocena V: 21-30 behavior considerably influenced by delusions or hallucinations OR serious impairment in judgment, communication OR inability to function in almost all areas Recommendations: RTC 2 months. Trinza injection 08-22-2021 Review with patient: Treatment plan reviewed with the patient. Medication risks/benefit reviewed with the patient Total Time: 25 mins >50% time counseling or coordinating care DIAGNOSIS: patient and mother has been informed of the benefits, risks, possible side effects and alternatives to the medical treatment listed above and have expressed understanding Total Time: 25 mins __ >50% time counseling or coordinating care Christi Perez documented in this encounter [facility] 05-03-2021 History of Present illness Narrative BEHAVIORAL HEALTH PSYCHIATRIC PROGRESS NOTE 05/03/2021 Leon Atkinson, a 20 y.o. male, for follow-up visit. He is here with his mother. Patient is referred by Conrad García MD . Interval History: Leon is doing much better with the addition of the Zydis 5 mg. Far less paranoid, although he continues to be cautious and to dislike large numbers of people. He is trying to work through the [place] [employer]. Sleeping ok. Eating better. He complains of night sweats from the medication but I encouraged him to continue taking it, as it has been so helpful. No suicidal thoughts. PFSH: Past Medical History: Diagnosis Date ADHD Depression Schizophrenia ([facility]) Schizophrenia, first episode, currently in partial remission ([facility]) 08/12/2018 Social History Substance and Sexual Activity Alcohol Use Never Social History Substance and Sexual Activity Drug Use Never Social History Substance and Sexual Activity Sexual Activity Not Currently Partners: Male Family History Problem Relation Age of Onset Personality disorder Father Diabetes Maternal Grandmother The following portions of the patient's history were reviewed and updated as appropriate: allergies, current medications, past family history, past medical history, past social history, past surgical history and problem list. Review of Systems Constitutional: Negative. HENT: Negative. Eyes: Negative. Respiratory: Negative. Cardiovascular: Negative. Gastrointestinal: Negative. Endocrine: Negative. Genitourinary: Negative. Musculoskeletal: Negative. Skin: Negative. Allergic/Immunologic: Negative. Neurological: Negative. Hematological: Negative. Psychiatric/Behavioral: Positive for sleep disturbance. Physical Exam PSYCHIATRIC EXAM: Grooming & Hygiene: disheveled and casually dressed General Behavior: cooperative Psychomotor Activity: no psychomotor abnormalities Speech: decreased amount Flow to Thought: logical & goal directed Thought Associations: Intact Content of Thought: delusions of persecutory Mood: fine Affect: flat Insight: limited Judgment: limited Orientation: alert and oriented to person, place, time Memory: Recent intact Attention: intact Concentration: intact Language: intact Fund of Knowledge: intact Labs/ Diagnostic Imaging reviewed: no new data Response to Medication: Good ASSESSMENT AND PLAN: A: Paranoid schizophrenia. Significant improvement on current medication combination. P: Continue Invega Trinzia q 3 months. Continue Zydis 5 mg qhs Follow-up plan was discussed with patient. Impression/ Plan: No Changes Wyocena I: Paranoid Schizophrenia Wyocena II: Deferred Wyocena III: see problem list Wyocena IV: other psychosocial or environmental problems Wyocena V: 51-60 moderate symptoms Recommendations: RTC 2 months Review with patient: Treatment plan reviewed with the patient. Medication risks/benefit reviewed with the patient Total Time: 20 mins >50% time counseling or coordinating care DIAGNOSIS: F20.9 patient and parent has been informed of the benefits, risks, possible side effects and alternatives to the medical treatment listed above and have expressed understanding Total Time: 20 mins __ >50% time counseling or coordinating care Christi Perez documented in this encounter [facility] 04-30-2021 History of Present illness Narrative BEHAVIORAL HEALTH PSYCHIATRIC PROGRESS NOTE 04/30/2021 Leon Atkinson, a 20 y.o. male, for follow-up visit. On 04-24 Patient is referred by Conrad García MD . Interval History: Leon is here with his mother who reports continued paranoid behaviors and thoughts. No mood problems at this time. She must keep a close watch to see that he eats and showers. He has not been aggressive but he is not able to work because of his severe paranoia. He openly states that he doesn't trust mom or me. PFSH: Past Medical History: Diagnosis Date ADHD Depression Schizophrenia (HCC) Schizophrenia, first episode, currently in partial remission (HCC) 08/12/2018 Social History Substance and Sexual Activity Alcohol Use Never Social History Substance and Sexual Activity Drug Use Never Social History Substance and Sexual Activity Sexual Activity Not Currently Partners: Male Family History Problem Relation Age of Onset Personality disorder Father Diabetes Maternal Grandmother The following portions of the patient's history were reviewed and updated as appropriate: allergies, current medications, past family history, past medical history, past social history, past surgical history and problem list. Review of Systems Physical Exam PSYCHIATRIC EXAM: Grooming & Hygiene: disheveled General Behavior: minimally engaged and defensive Psychomotor Activity: no psychomotor abnormalities Speech: increased latency and decreased amount Flow to Thought: concrete Thought Associations: Intact Content of Thought: delusions of persecutory Mood: fine Affect: flat Insight: poor Judgment: poor Orientation: alert and oriented to person, place, time Memory: Recent intact Attention: impaired Concentration: impaired Language: intact Fund of Knowledge: limited Labs/ Diagnostic Imaging reviewed: no new data Response to Medication: Poor ASSESSMENT AND PLAN: A: 20 year old male with persistent paranoia despite depot injections of Invega P: Maximize dose of Invega maintenance shots. Add Zyprexa 5 mg PO up to bid. Mother is an RN and can assess and administer correctly. Follow-up plan was discussed with patient. Impression/ Plan: No Changes Wyocena I: Schizophrenia, paranoid type Wyocena II: No diagnosis Wyocena III: no known medical problems Wyocena IV: other psychosocial or environmental problems Wyocena V: 31-40 impairment in reality testing Recommendations: Monthly clinic visits with hospitalization as necessary for dangerous behaviors or inability to live in the community Review with patient: Treatment plan reviewed with the patient. Medication risks/benefit reviewed with the patient Total Time: 30 mins >50% time counseling or coordinating care DIAGNOSIS: F20.9 patient and parent has been informed of the benefits, risks, possible side effects and alternatives to the medical treatment listed above and have expressed understanding Total Time: 30 mins __ >50% time counseling or coordinating care Christi Perez documented in this encounter [facility] 04-30-2021 History of Present illness Narrative BEHAVIORAL HEALTH PSYCHIATRIC PROGRESS NOTE 04/30/2021 Leon Atkinson, a 20 y.o. male, for follow-up visit. Patient is referred by Conrad García MD . Interval History: Leon is here with his mother today. He remains very paranoid despite receiving his medications IM. Mother has difficulty with him at home, as he does not trust even her and believes his paranoid delusions to be reality. He is not violent or aggressive. He has negative symptoms of schizophrenia and is fearful because of his delusions. I supplied mom with prn doses of Zyprexa Zydis, which he refuses to take.Requested a change to Trinza so he does not have to come in as frequently/ PFSH: Past Medical History: Diagnosis Date ADHD Depression Schizophrenia ([facility]) Schizophrenia, first episode, currently in partial remission ([facility]) 08/12/2018 Social History Substance and Sexual Activity Alcohol Use Never Social History Substance and Sexual Activity Drug Use Never Social History Substance and Sexual Activity Sexual Activity Not Currently Partners: Male Family History Problem Relation Age of Onset Personality disorder Father Diabetes Maternal Grandmother The following portions of the patient's history were reviewed and updated as appropriate: allergies, current medications, past family history, past medical history, past social history, past surgical history and problem list. Review of Systems Physical Exam PSYCHIATRIC EXAM: Grooming & Hygiene: disheveled General Behavior: defensive and withdrawn Psychomotor Activity: no psychomotor abnormalities Speech: decreased amount Flow to Thought: logical & goal directed Thought Associations: Intact Content of Thought: delusions of persecutory and bizarre Mood: Anxious Affect: flat Insight: poor Judgment: poor Orientation: alert and oriented to person, place, time Memory: Recent intact Attention: impaired Concentration: impaired Language: intact Fund of Knowledge: intact Labs/ Diagnostic Imaging reviewed: no new datA Response to Medication: Poor ASSESSMENT AND PLAN: A: Leon continues to be paranoid and largely unable to function in the community. He lives with mom who keeps him safe and attempts to reality orient him. No side effects from medications. P: Maximize Invega dose via depot injection form. Add Zyprexa prn 5 mg up to bid. Mother is an RN and understands how and when to administer. Follow-up plan was discussed with patient. Impression/ Plan: No Changes Wyocena I: Schizophrenia, paranoid type Wyocena II: No diagnosis Wyocena III: no known problems Wyocena IV: other psychosocial or environmental problems Wyocena V: 31-40 impairment in reality testing Recommendations: Monthly follow up visits. Hospitalize when indicated for behavior dangerous to self or others Review with patient: Treatment plan reviewed with the patient. Medication risks/benefit reviewed with the patient Total Time: 30 mins >50% time counseling or coordinating care DIAGNOSIS: F20.9 patient and parent has been informed of the benefits, risks, possible side effects and alternatives to the medical treatment listed above and have expressed understanding Total Time: 30 mins __ >50% time counseling or coordinating care Christi Perez documented in this encounter [facility] 02-21-2021 History of Present illness Narrative BEHAVIORAL HEALTH PSYCHIATRIC PROGRESS NOTE 02/21/2021 Leon Atkinson, a 20 y.o. male, for follow-up visit. He is here with his mother. Patient is referred by Conrad García MD. Interval History: Leon has been relatively stable since release from the hospital. He continues to have delusions about bad air inside his body. He denies hallucinations. He does very little during the day, yet he wants to flit from activity to activity. He is only comfortable with his mother and his grandmother. Denies depressed mood and suicidal thoughts. Tolerates the medication but doesn't believe he needs it. PFSH: Past Medical History: Diagnosis Date ADHD Depression Schizophrenia ([facility]) Schizophrenia, first episode, currently in partial remission ([facility]) 08/12/2018 Social History Substance and Sexual Activity Alcohol Use Never Social History Substance and Sexual Activity Drug Use Never Social History Substance and Sexual Activity Sexual Activity Not Currently Partners: Male Family History Problem Relation Age of Onset Personality disorder Father Diabetes Maternal Grandmother The following portions of the patient's history were reviewed and updated as appropriate: allergies, current medications, past family history, past medical history, past social history, past surgical history and problem list. Review of Systems Constitutional: Negative. HENT: Negative. Eyes: Negative. Respiratory: Negative. Cardiovascular: Negative. Gastrointestinal: Negative. Endocrine: Negative. Genitourinary: Negative. Musculoskeletal: Negative. Skin: Negative. Allergic/Immunologic: Negative. Neurological: Negative. Hematological: Negative. Physical Exam PSYCHIATRIC EXAM: Grooming & Hygiene: neat and casually dressed General Behavior: cooperative Psychomotor Activity: no psychomotor abnormalities Speech: decreased amount Flow to Thought: tangential Thought Associations: Intact Content of Thought: delusions of persecutory Mood: Depressed Affect: flat Insight: poor Judgment: limited Orientation: alert and oriented to person, place, time Memory: Recent intact Attention: intact Concentration: intact Language: intact Fund of Knowledge: intact Labs/ Diagnostic Imaging reviewed: CMP, CBC, TSH, lipid profile from hospitalization 9-3 all wnl Response to Medication: Adequate ASSESSMENT AND PLAN: A: Undifferentiated schizophrenia with recent hospitalization. Poor insight but cooperative and mother supportive of treatment. P: Reduce oral Invega to 6 mg. Next IM injection to be 234 mg at PCP Follow-up plan was discussed with patient. Impression/ Plan: No Changes Wyocena I: Schizophrenia Wyocena II: No diagnosis Wyocena III: see problem list Wyocena IV: occupational problems and other psychosocial or environmental problems Wyocena V: 31-40 impairment in reality testing Recommendations: RTC q 4 weeks Review with patient: Treatment plan reviewed with the patient. Medication risks/benefit reviewed with the patient Total Time: 20 mins >50% time counseling or coordinating care DIAGNOSIS: F20.9 patient and parent has been informed of the benefits, risks, possible side effects and alternatives to the medical treatment listed above and have expressed understanding Total Time: 20 mins __ >50% time counseling or coordinating care Christi Perez documented in this encounter [facility] 02-16-2021 History of Present illness Narrative BEHAVIORAL HEALTH PSYCHIATRIC PROGRESS NOTE 02/16/2021 Leon Atkinson, a 20 y.o. male, for follow-up visit following hospitalization Patient is referred by Conrad García MD . Interval History: Seen with mother for psychiatric follow-up. Patient has shown no decline since his discharge. He has been taking care of his ADLs and is not catatonic. He is more anxious and clingy to mother. Mother had to take him with her when she had to go to work and patient sits in the car that she can come back from completing her project. Patient has mild paranoia/mild persecutory delusions, mild thought blocking, speech is not as hesitant. He is taking care of his ADLs and hygiene. Denies any ongoing command hallucinations. He is not responding to stimuli. Behaviors are not disorganized. Speech and actions and not bizarre. Mother also reported patient has being aggressive oriented. Patient's sleep has been adequate no issues falling or staying asleep. He has been eating better. He is not concerned about his food being poisoned. Patient does not have any thought insertion or thought broadcasting. Less intense negative symptoms as compared to his hospitalization. He was dressed appropriately. Slightly better engaged. We discussed a lot of time on patient's family history specifically history of father's psychiatric illness. His father was given a diagnosis of borderline personality disorder and mood disorder. Patient's psychiatric history since his speech communication instructor was also discussed. Patient while growing up was considered as a ADHD and ODD child and was prescribed psychostimulants Patient does reportedly ongoing depressed mood. Denied any ongoing feelings of hopelessness, denies any ongoing suicidal intent or plan. Still has mild poverty of speech and mild anhedonia. No racing thoughts or other manic mood symptoms reported Denies any known drug or alcohol abuse. Medications assessed: Patient has been compliant denies any ongoing side effects, we will continue the same plan PFSH: Past Medical History: Diagnosis Date ADHD Depression Schizophrenia ([facility]) Schizophrenia, first episode, currently in partial remission ([facility]) 08/12/2018 Social History Substance and Sexual Activity Alcohol Use Never Social History Substance and Sexual Activity Drug Use Never Social History Substance and Sexual Activity Sexual Activity Not Currently Partners: Male Family History Problem Relation Age of Onset Personality disorder Father Diabetes Maternal Grandmother The following portions of the patient's history were reviewed and updated as appropriate: allergies, current medications, past family history, past medical history, past social history, past surgical history and problem list. Review of Systems: Constitutional:No fever, no weight loss Eyes:No diplopia ENT:No sinus drainage CV:No chest pain. No ankle swelling Resp:No dyspnea. No wheezing GI:No abdominal pain.No abdominal distention :No dysuria Neuro:No headache Integumentary:No skin rash MuscSkel:No arthralgias Endo:No polyuria Heme/lymphatic:No apparent lymphadenopathy Allergic/Immunologic:No hives Mental Status Evaluation: General Appearance & Behavior: age appropiate and Adequate eye contact, slightly engaged Grooming & Hygiene: Adequate hygiene and grooming Psychomotor Activity: Normal motor activity Gait & Station stable gait and ability to rise from bed/chair without assistance Speech: Not as hesitant Flow of Thought: Mild thought blocking, minimal perseveration Thought Associations: Mildly loose Content of Thought: No evidence of SI/HI, mild paranoid/persecutory delusions, no mu-ism preoccupation Mood: 'Okay' Affect: Mildly anxious Insight: Very limited Judgment: Very limited Orientation: Alert and oriented to time place and person but less to circumstances Memory: intact recent and remote Attention: Reduced Concentration: Adequate Language: Average: Premorbid Fund of Knowledge: Average: Premorbid AIMS exam completed: No abnormal involuntary movements noted Labs/ Diagnostic Imaging reviewed: none Response to Medication: Adequate ASSESSMENT AND PLAN: Wyocena I: Schizophrenia: Disorganized type with acute exacerbation Wyocena II: Deferred Wyocena III: None significant Wyocena IV: Other psychosocial and environmental problems Wyocena V: Global assessment of functioning a 55 Recommendations: Treatment Plan: Pharmacological management: Alternative medication plans were discussed with the patient/guardian. All relevant side effects and potential adverse effects were discussed with the patient/guardian. Standard cautions and potential benefits were discussed. FDA label and OFF label uses of medications were discussed. Patient/Guardian consented to the start/continuation of the following: Continue : LORazepam (ATIVAN) 0.5 MG tablet, Take 1 (one) tablet (0.5 mg total) by mouth 3 (three) times a day as needed for anxiety paliperidone (INVEGA) 3 MG 24 hr tablet, Take 1 (one) tablet (3 mg total) by mouth every morning paliperidone (INVEGA) 6 MG 24 hr tablet, Take 1 (one) tablet (6 mg total) by mouth every morning paliperidone palmitate (INVEGA SUSTENNA) 234 mg/1.5 mL Syrg, Inject 1.5 mL (234 mg total) into the shoulder, thigh, or buttocks every 28 days Start: 02/23/21., Disp: 1.5 mL, Rfl: 11 Will monitor side effects and progress and adjust medications appropriately Crisis Intervention plan was discussed and agreed upon. Patient/Guardian will call 911 in case of emergency. Emergency contact information was provided to the patient/guardian. Laboratory and other tests: See orders. Psychotherapy: Follow up as scheduled or return early if needed. School or community referral: Treatment Goals and Objectives discussed. Other Referrals: none [facility]iel[facility] Watts [facility] Diagnosis Undifferentiated schizophrenia (HCC)- Primary Anxiety disorder, unspecified type [facility] Diagnosis Paranoid schizophrenia (HCC)- Primary Paranoid schizophrenia, unspecified condition documented in this encounter [facility] note* Diagnosis Paranoid schizophrenia (HCC)- Primary Paranoid schizophrenia, unspecified condition documented in this encounter [facility] note* Diagnosis Paranoid schizophrenia (HCC)- Primary Paranoid schizophrenia, unspecified condition documented in this encounter [facility] note* Diagnosis Undifferentiated schizophrenia (HCC)- Primary Schizophrenia (HCC) Unspecified schizophrenia, unspecified condition documented in this encounter [facility] note* Diagnosis Schizophrenia, unspecified type (HCC)- Primary documented in this encounter [facility] note* Diagnosis Paranoid schizophrenia (HCC)- Primary Paranoid schizophrenia, unspecified condition documented in this encounter [facility] note* Diagnosis Schizophrenia, unspecified type (HCC)- Primary documented in this encounter [facility] note* Diagnosis Schizophrenia, unspecified type (HCC)- Primary documented in this encounter [facility] note* Diagnosis Undifferentiated schizophrenia (HCC)- Primary documented in this encounter [facility] note* Diagnosis Schizophrenia, unspecified type (HCC)- Primary documented in this encounter [facility] note* Diagnosis Wellness examination- Primary Paranoid schizophrenia (HCC) Paranoid schizophrenia, unspecified condition Depression, unspecified depression type Attention deficit disorder, unspecified hyperactivity presence Thrombocytopenia (HCC) Thrombocytopenia, unspecified Screening for HIV (human immunodeficiency virus) Special screening examination for other specified viral diseases Special screening examination for viral disease Special screening examination for unspecified viral disease Encounter to establish care Other reasons for seeking consultation Encounter for therapeutic drug monitoring Encounter for screening for diabetes mellitus Screening for diabetes mellitus Screening for lipid disorders documented in this encounter [facility] note* Diagnosis Paranoid schizophrenia (HCC)- Primary Paranoid schizophrenia, unspecified condition documented in this encounter [facility] note* Diagnosis Paranoid schizophrenia (HCC)- Primary Paranoid schizophrenia, unspecified condition documented in this encounter [facility] note* Diagnosis Paranoid schizophrenia (HCC)- Primary Paranoid schizophrenia, unspecified condition documented in this encounter [facility] for visit Narrative* Auth/Cert Specialty Diagnoses / Procedures Referred By Arielle t Referred To Contact Diagnoses Schizophrenia (HCC) Referral ID Status Reason Start Date Expiration Date Visits Re quested Visits Authorized [id number] [address] [facility] History of Present Illness * Christi Perez MD - 08/12/2018 12:55 PM EDT BEHAVIORAL HEALTH PSYCHIATRIC PROGRESS NOTE 08/12/2018 Leon Atkinson, a 17 y.o. male, for follow-up visit following hospitalization in July 2018. Patient is referred by Maverick Murray MD . Interval History: Leon is here with his mother and grandmother. They report a period of improved activity, socialization and verbal communication. However, this has lately begun to regress. He got his second dose of the Invega Sustenna on 07-30-2018. Leon won't talk at all or look at me during the visit. His loved ones state that he is much better at home. He did not want to come today, perhaps fearing hospitalization. However, he won't confirm or deny. Does not answer any questions, even non-verbally. No side effects noted. He has not made any statements about suicide at home. PFSH: Past Medical History: Diagnosis Date Schizophrenia, first episode, currently in partial remission ([facility]) 08/12/2018 Social History Substance and Sexual Activity Alcohol Use Never Frequency: Never Social History Substance and Sexual Activity Drug Use Never Social History Substance and Sexual Activity Sexual Activity Not on file Family History Problem Relation Age of Onset Personality disorder Father The following portions of the patient's history were reviewed and updated as appropriate: allergies, current medications, past family history, past medical history, past social history, past surgicalhistory and problem list. Review of Systems Physical Exam PSYCHIATRIC EXAM: Grooming & Hygiene: neat and casually dressed General Behavior: uncooperative and regressed Psychomotor Activity: retardation Speech: decreased amount Flow to Thought: cannot evaluate Thought Associations: cannot evaluate Content of Thought: cannot evaluate Mood: no disturbance verbalized to or observed by loved ones at home Affect: flat Insight: poor Judgment: poor Orientation: cannot evaluate Memory: Recent intact Attention: impaired Concentration: impaired Language: mute Fund of Knowledge: cannot evaluate Labs/ Diagnostic Imaging reviewed: Response to Medication: Poor ASSESSMENT AND PLAN: A: 17 year old recently hospitalized with first episode psychosis. Stabilized on Invega and released on Sustenna injections. He has regressed in the last week. P: Supplement with oral Invega 3 mg. Next IM injection, 08-27-2018, raise dose to 154 mg. Follow-up plan was discussed with patient. Impression/ Plan: No Changes Wyocena I: schizophrenia Wyocena II: No diagnosis Wyocena III: none Wyocena IV: problems with primary support group Wyocena V: 31-40 impairment in reality testing Recommendations: Patient has constant supervision at home. Med changes as above. RTC 1 month or prn. Review with patient: Treatment plan reviewed with the patient. Medication risks/benefit reviewed with the patient DIAGNOSIS: patient, parent and grandmother has been informed of the benefits, risks, possible side effects andalternatives to the medical treatment listed above and have expressed understanding Christi Perez in this encounter Assessments Diagnosis Schizophrenia, first episode, currently in partial remission (HCC)- Primary Advance Directives Documents on File Type Date Recorded Patient Floor Renovator Expl anation Guardianship Papers 02/02/2021 10:40 PM 07/2020 Advance Directives and Livin g Will 02/01/2021 9:10 PM Latest Code Status on File Code Status Date Activated Date Inactivated Comments Full Code - Unverified 02/02/2021 10:24 AM 02/09/2021 11: 24 PM Documents on File Type Date Recorded Patient Floor Renovator Expl anation Advance Directives and Livin g Will 07/30/2021 4:11 PM Guardianship Papers 02/02/2021 10:40 PM 07/2020 Latest Code Status on File Code Status Date Activated Date Inactivated Comments Full Code - Unverified 07/31/2021 7:24 PM 08/14/2021 7:11 PM Full Code 07/30/2021 4:13 PM 07/31/2021 6:15 PM Full Code - Unverified 02/02/2021 10:24 AM 02/09/2021 11: 24 PM Documents on File Type Date Recorded Patient Floor Renovator Expl anation Guardianship Papers 08/15/2021 5:00 AM Advance Directives and Livin g Will 07/30/2021 4:11 PM Guardianship Papers 02/02/2021 10:40 PM 07/2020 Latest Code Status on File Code Status Date Activated Date Inactivated Comments Full Code - Unverified 07/31/2021 7:24 PM 08/14/2021 7:11 PM Full Code 07/30/2021 4:13 PM 07/31/2021 6:15 PM Full Code - Unverified 02/02/2021 10:24 AM 02/09/2021 11: 24 PM Documents on File Type Date Recorded Patient Floor Renovator Expl [email or web address] Guardianship Papers 08/15/2021 5:00 AM Guardianship Papers 02/02/2021 10:40 PM 07/2020 Latest Code Status on File Date Activated Date Inactivated Comments 07/31/2021 7:24 PM 08/14/2021 7:11 PM Full Code Date Activated Date Inactivated Comments 07/30/2021 4:13 PM 07/31/2021 6:15 PM Full Code - Unverified Date Activated Date Inactivated Comments 02/02/2021 10:24 AM 02/09/2021 11:24 PM Documents on File Type Date Recorded Patient Floor Renovator Expl [email or web address] Guardianship Papers 08/15/2021 5:00 AM Guardianship Papers 02/02/2021 10:40 PM 07/2020 Latest Code Status on File Code Status Date Activated Date Inactivated Comments Full Code - Unverified 07/31/2021 7:24 PM 08/14/2021 7:11 PM Code Status History Code Status Date Activated Date Inactivated Comments Full Code 07/30/2021 4:13 PM 07/31/2021 6:15 PM Full Code - Unverified 02/02/2021 10:24 AM 02/09/2021 11: 24 PM Latest Code Status on File Code Status Date Activated Date Inactivated Comments Full Code - Unverified 07/31/2021 7:24 PM 08/14/2021 7:11 PM Code Status History Code Status Date Activated Date Inactivated Comments Full Code 07/30/2021 4:13 PM 07/31/2021 6:15 PM Full Code - Unverified 02/02/2021 10:24 AM 02/09/2021 11: 24 PM Summary Purpose Family History No Family History Records FoundNo Family History Records FoundNo Family History Records FoundNo Family History Records FoundNo Family History Records FoundNo Family History Records FoundNo Family History Records FoundNo Family History Records FoundNo Family History Records FoundNo Family History Records Found Medications Administered Section Active Administered Medications - up to 3 most recent administrations Medication Order MAR Action Action Date Dose Rate Site paliperidone palm (3-month) syrg 546 mg (INVEGA TRINZA) 546 mg, INTRAMUSCULAR, EVERY 3 MONTHS, 4 doses, First dose on Loli 05/24/21 at 0000, Last dose on Fri02/18/22 at 0000 Given 08/22/2021 3:25 PM EDT 546 mg Deltoid, Right Active Administered Medications - up to 3 most recent administrations Medication Order MAR Action Action Date Dose Rate Site paliperidone palm (3-month) syrg 546 mg (INVEGA TRINZA) 546 mg, INTRAMUSCULAR, EVERY 3 MONTHS, 4 doses, First dose on Loli 05/24/21 at 0000, Last dose on Fri02/18/22 at 0000 Given 11/22/2021 3:31 PM EDT 546 mg Deltoid, Right Inactive Administered Medications - up to 3 most recent administrations Medication Order MAR Action Action Date Dose Rate Site paliperidone palm (3-month) syrg 546 mg (INVEGA TRINZA) 546 mg, INTRAMUSCULAR, EVERY 3 MONTHS, 4 doses, First dose on Loli 05/24/21 at 0000, Last dose on Fri02/18/22 at 0000 Given 02/21/2022 3:46 PM EDT 546 mg Deltoid, Right Inactive Administered Medications - up to 3 most recent administrations Medication Order MAR Action Action Date Dose Rate Site paliperidone palm (3-month) syrg 546 mg (INVEGA TRINZA) 546 mg, INTRAMUSCULAR, ONCE, 1 dose, On Fri05/23/22 at 0000 Given 05/23/2022 3:51 PM EST 546 mg Deltoid, Right Reason for Referral Specialty Diagnoses / Procedures Referred By Arielle worthy Referred To Contact Christi Perez MD [facility] [place] [address] Referral ID Status Reason Start Date Expiration Date Visits Re quested Visits Authorized [id number] Closed 1 1 Referral ID Status Reason Start Date Expiration Date Visits Re quested Visits Authorized [id number] Closed 1 1 Additional Source Comments Reason for Visit (unrecogniz ed section and content) Reason Comments Medication Management Reason Onset Date Comments Medication Refill 06/20/2021 Reason Comments Follow-up 2 month visit Reason Comments Imm/Inj Reason Onset Date Comments Medication Refill 09/17/2021 Reason Onset Date Comments Medication Refill 11/22/2021 Reason Onset Date Comments Medication Refill 12/21/2021 Reason Comments Medication Management Reason Comments Orders Reason Comments Establish Care (unrecognized sect ion and content) No Status Records FoundNo Status Records FoundNo Status Records FoundNo Status Records FoundNo Status Records FoundNo Status Records FoundNo Status Records FoundNo Status Records FoundNo Status Records FoundNo Status Records Found INFORMATION SOURCE (unrecogn ized section and content) DATE CREATED AUTHOR AUTHOR'S ORGANIZ ATION 10/07/2018 [facility] DATE CREATED AUTHOR AUTHOR'S ORGANIZ ATION 04/15/2020 [facility] DATE CREATED AUTHOR AUTHOR'S ORGANIZ ATION 04/18/2020 [facility] DATE CREATED AUTHOR AUTHOR'S ORGANIZ ATION 02/08/2021 [facility] DATE CREATED AUTHOR AUTHOR'S ORGANIZ ATION 06/01/2021 [facility] DATE CREATED AUTHOR AUTHOR'S ORGANIZ ATION 08/20/2021 [facility] DATE CREATED AUTHOR AUTHOR'S ORGANIZ ATION 08/20/2021 [facility] DATE CREATED AUTHOR AUTHOR'S ORGANIZ ATION 05/20/2023 [facility] DATE CREATED AUTHOR AUTHOR'S ORGANIZ ATION 06/19/2023 [facility] Care Teams (unrecognized sec tion and content) Film Casting Operator Relationship Specialty Start Date End Date Conrad García MD [address] [place] [phone] (Work) PCP - General Family Medicine 02/01/21 Film Casting Operator Relationship Specialty Start Date End Date Conrad García MD [address] [place] [phone] (Work) PCP - General Family Medicine 02/01/21 Film Casting Operator Relationship Specialty Start Date End Date Conrad García MD [address] [place] [phone] (Work) PCP - General Family Medicine 02/01/21 Film Casting Operator Relationship Specialty Start Date End Date Conrad García MD [address] [place] [phone] (Work) PCP - General Family Medicine 02/01/21 Film Casting Operator Relationship Specialty Start Date End Date Conrad García MD [address] [place] [phone] (Work) PCP - General Family Medicine 02/01/21 Film Casting Operator Relationship Specialty Start Date End Date Conrad García MD [address] [place] [phone] (Work) PCP - General Family Medicine 02/01/21 Film Casting Operator Relationship Specialty Start Date End Date David eSars MD [address] [place] [address] [phone] PCP - General Family Practice 01/04/19 Film Casting Operator Relationship Specialty Start Date End Date Conrad García MD [address] [place] [phone] (Work) PCP - General Family Medicine 02/01/21 Film Casting Operator Relationship Specialty Start Date End Date David Sears MD [address] [place] [address] [phone] PCP - General Family Practice 01/04/19 Film Casting Operator Relationship Specialty Start Date End Date Conrad García MD [address] [place] [phone] (Work) PCP - General Family Medicine 02/01/21 Film Casting Operator Relationship Specialty Start Date End Date David Sears MD [address] [place] [address] [phone] PCP - General Family Medicine 01/04/19 Film Casting Operator Relationship Specialty Start Date End Date Conrad García MD [address] [place] [phone] (Work) PCP - General Family Medicine 02/01/21 Film Casting Operator Relationship Specialty Start Date End Date Conrad García MD [address] [place] [phone] [phone] (Work) PCP - [facility] 02/01/21 Film Casting Operator Relationship Specialty Start Date End Date Conrad [place]ía [place] [address] [place], [place] [phone] (Work) PCP - [facility] 02/01/21 Film Casting Operator Relationship Specialty Start Date End Date Conrad García MD [address] [place] [phone] (Work) PCP - [facility] 02/01/21 Scheduled Active and Recently Administ ered Medications (unrecognized section and content) PRN Medication Order 08/12/2021 08/13/2021 08/14/2021 aluminum-magnesium hydroxide-simethicone (MAALOX PLUS) 200-200-20 mg/5 mL suspension 30 mL 30 mL, Oral, Every 4 hours PRN, indigestion, Starting on Fri07/31/21 at 1914 benztropine (COGENTIN) injection 2 mg 2 mg, Intramuscular, Once as needed, acute dystonia, Starting on Fri07/31/21 at 1914, For 1 dose, [] and notify the physician. diphenhydrAMINE (BENADRYL) injection 50 mg(Linked Group 1) 50 mg, Intramuscular, Every 4 hours PRN, other, with Haldol, Starting on Fri08/01/21 at 1552, For IV administration, give at a rate less than or equal to 25 mg/min diphenhydrAMINE (BENADRYL) oral solid 50 mg(Linked Group 1) 50 mg, Oral, Every 4 hours PRN, with Haldol, Starting on Fri08/01/21 at 1552 haloperidoL (HALDOL) tablet 5 mg(Linked Group 2) 5 mg, Oral, Every 4 hours PRN, agitation, Starting on Fri07/31/21 at 1914, Use oral route first, if tolerated. May cause QT interval prolongation. 1502 (Given - Provider: Vanessa Parson RN) 1044 (Given - Provider: Toni Hawkins LPN) haloperidol lactate (HALDOL) injection 5 mg(Linked Group 2) 5 mg, Intramuscular, Every 4 hours PRN, agitation, Starting on Fri07/31/21 at 191, Use oral route first, if tolerated. May cause QT interval prolongation. 1502 (See Alternative - Provider: Vanessa Parson RN) 1044 (See Alternative - Provider: Toni Hawkins LPN) hydrOXYzine (ATARAX) tablet 50 mg 50 mg, Oral, Every 6 hours PRN, anxiety, Starting on Fri07/31/21 at 1913 ibuprofen (ADVIL,MOTRIN) tablet 600 mg 600 mg, Oral, Every 6 hours PRN, mild pain, Starting on Fri07/31/21 at 1913, Give with Food Do Not Crush or Chew if administering orally due to bitter taste. May be crushed if given via tube. LORazepam (ATIVAN) injection 2 mg(Linked Group 3) 2 mg, Intramuscular, Every 4 hours PRN, agitation, Starting on Fri08/01/21 at 1600, VESICANT LORazepam (ATIVAN) tablet 2 mg(Linked Group 3) 2 mg, Oral, Every 4 hours PRN, agitation, Starting on Fri08/01/21 at 1600 magnesium hydroxide (MOM) 400 mg/5 mL suspension 2,400 mg 2,400 mg (30 mL), Oral, Daily PRN, constipation, constipation, Starting on Fri07/31/21 at 191 traZODone (DESYREL) tablet 50 mg 50 mg, Oral, Nightly PRN, sleep, Starting on Fri07/31/21 at 191, [] May repeat once in 30 minutes if still awake. Linked Groups Order Group 1: diphenhydrAMINE (BENADRYL) injection 50 mgJump to med 50 mg, Intramuscular, Every 4 hours PRN, other, with Haldol, Starting on Fri08/01/21 at 1552
For IV administration, give at a rate less than or equal to 25 mg/min
Or diphenhydrAMINE (BENADRYL) oral solid 50 mgJump to med 50 mg, Oral, Every 4 hours PRN, with Haldol, Starting on Fri08/01/21 at 1552 Group 2: haloperidoL (HALDOL) tablet 5 mgJump to med 5 mg, Oral, Every 4 hours PRN, agitation, Starting on Fri07/31/21 at 1914
Use oral route first, if tolerated. May cause QT interval prolongation.
Or haloperidol lactate (HALDOL) injection 5 mgJump to med 5 mg, Intramuscular, Every 4 hours PRN, agitation, Starting on Fri07/31/21 at 1914
Use oral route first, if tolerated. May cause QT interval prolongation.
Group 3: LORazepam (ATIVAN) tablet 2 mgJump to med 2 mg, Oral, Every 4 hours PRN, agitation, Starting on Fri08/01/21 at 1600 Or LORazepam (ATIVAN) injection 2 mgJump to med 2 mg, Intramuscular, Every 4 hours PRN, agitation, Starting on Fri08/01/21 at 1600
VESICANT
Source Comments (unrecognize d section and content) In the event this informatio n is protected by the Federal Confidentiality of Alcohol and Drug Abuse Patient Records regulations: The Federal rules restrict any use of the information to criminally investigate or prosecute any alcohol or drug abuse patient.[facility] the event this information is protected by the Federal Confidentiality of Alcohol and Drug Abuse Patient Records regulations: The Federal rules restrict any use of the information to criminally investigate or prosecute any alcohol or drug abuse patient.[facility] the event this information is protected by the Federal Confidentiality of Alcohol and Drug Abuse Patient Records regulations: The Federal rules restrict any use of the information to criminally investigate or prosecute any alcohol or drug abuse patient.[facility] the event this information is protected by the Federal Confidentiality of Alcohol and Drug Abuse Patient Records regulations: The Federal rules restrict any use of the information to criminally investigate or prosecute any alcohol or drug abuse patient.[facility] the event this information is protected by the Federal Confidentiality of Alcohol and Drug Abuse Patient Records regulations: The Federal rules restrict any use of the information to criminally investigate or prosecute any alcohol or drug abuse patient.[facility] the event this information is protected by the Federal Confidentiality of Alcohol and Drug Abuse Patient Records regulations: The Federal rules restrict any use of the information to criminally investigate or prosecute any alcohol or drug abuse patient.[facility] FOR RECORDS PERTAINING TO PATIENTS WHO ARE OR HAVE BEEN ENROLLED IN A CHEMICAL DEPENDENCY/SUBSTANCEABUSE PROGRAM, SOME INFORMATION MAY BE OMITTED. This clinical summary was aggregated from multiple sources. Caution should be exercised in using it in the provision of clinical care. This summary normalizes information from multiple sources, and as a consequence, information in this document may materially change the coding, format and clinical context of patient data. In addition, data may be omitted in some cases. CLINICAL DECISIONS SHOULD BE BASED ON THE PRIMARY CLINICAL RECORDS. [facility]. provides no warranty or guarantee of the accuracy or completeness of information in this document.
--- NOTE | 2023-07-12 18:04 | EX.ED.VIS.HA ---
HPI History of Present Illness Chief Complaint: Headache Narrative Narrative: 22-year-old male presenting with headache. Patient is very guarded with his answers. He will only say is a headache. He states it is 5/10. Patient states it has been present for a couple of days. He is not taking anything for pain. Patient states he is not on any medications technically. He denies any trauma. No fevers or chills. Triage note states that patient is here with his legal guardian which is his mother. I discussed this with her and she states that she is the legal guardian and he is on Zyprexa 10 mg daily at bedtime as well as Invega monthly. Patient's mother states that she told him they would be going on vacation this summer and has been freaking out since then he has been acting bizarrely staying things like how do I know that I am not a clone , I do not think I am living in a real world , mom I want to be just missed from the world . Mother states that he is not suicidal or homicidal. He has been sleeping okay but does get up periodically through the night. He has been physically healthy. He has been eating less. She feels he is very worried about going out of town. Mother states that she is supposed to give him his Invega on Friday and she knows that she can give it a couple days early but she is a little concerned that he is acting oddly for himself. Patient does see psychiatry and recently had a telehealth visit on last and was offered anxiety medicine as his mother felt that this was anxiety induced however this was declined by the patient as he does not want to take it. [facility] PFS Home Medications NK 07/12/18 [History Last Taken Unknown] Allergy/AdvReac Type Severity Reaction Status Date / Time No Known Allergies Allergy Verified 07/12/23 16:49 Social History Smoking Status: Never smoker ROS ROS ED Constitutional Constitutional ED: Denies chills, fever(s) or sweats Eyes Eyes: Denies blurry vision or change in vision ENT ENT ED: Denies ear pain or sore throat Cardiovascular Cardiovascular: Denies chest pain, palpitations or racing heartbeat Respiratory/Chest Respiratory/Chest: Denies cough, dyspnea or sputum Gastrointestinal Gastrointestinal: Reports nausea; Denies abdominal pain, constipation, diarrhea or vomiting Genitourinary Genitourinary ED: Denies dysuria, hematuria or urinary frequency Musculoskeletal Musculoskeletal: Denies arthralgias, myalgias or neck pain Integumentary Denies abscess, Abrasions or rash Neurologic Neurologic: Reports headache(s); Denies paresthesias or weakness Psychiatric Psychiatric: Denies anxiety, depression, suicidal ideation or suicidal thoughts Endocrine Endocrinology: Denies polydipsia or polyuria EXAM Physical Exam Const Vital Signs: 07/12/23 16:50 Temperature 98.2 F Temperature Source Temporal Pulse Rate 82 Respiratory Rate 14 Blood Pressure 121/82 H Blood Pressure Mean 95 Pulse Ox 99 Oxygen Delivery Method Room Air Positive well nourished General Appearance ED: NAD HEENT Reports normocephalic and TM's clear atraumatic and trauma Tympanic Membrane ED: Yes TM's clear Eyes PERRL and EOMs intact bilaterally Resp normal respiratory effort and clear to auscultation bilaterally Auscultation: Negative for rales, rhonchi or wheezes Cardio regular rate and regular rhythm Neuro oriented x3 and CN's II-XII intact bilaterally Sensorium / Orientation: awake and alert MDM MDM MDM Narrative Medical decision making narrative: Patient presenting with odd behavior per his mother. He is sleeping well but not eating much. He has made bizarre comments as previously noted in my note. Mother wants him evaluated by crisis. Screening lab work was obtained. Patient is calm and has not had to be medicated. Patient medically cleared by lab work. Crisis came and spoke to him and spoke to his mother. There is concern that he is detached from reality. With his odd behavior and statements it is believed he would benefit from inpatient care. Crisis will make the arrangements. Impression: 1. Acute psychosis 2. History of schizophrenia Lab Data Attestation: I reviewed the patient's lab results. Labs: Laboratory Results - last 24 hr 07/12/23 07/12/23 18:15 19:13 WBC 4.3 L RBC 5.48 Hgb 15.0 Hct 46.5 MCV 84.9 MCH 27.4 MCHC 32.3 RDW Std Deviation 43.3 RDW Coeff of Shola 13.9 Plt Count 109 L MPV 11.5 Immature Gran % (Auto) 0.200 Neut % (Auto) 57.0 Lymph % (Auto) 31.2 Boyd % (Auto) 10.6 H Eos % (Auto) 0.5 Baso % (Auto) 0.5 Absolute Neuts (auto) 2.5 Absolute Lymphs (auto) 1.35 Nucleated RBC % 0 Sodium 140 Potassium 3.5 Chloride 109 H Carbon Dioxide 27.0 Anion Gap 4 L BUN 15 Creatinine 1.01 Estim Creat Clear Calc 111.18 Est GFR (MDRD) Af Amer 117 Est GFR (MDRD) Non-Af 97 BUN/Creatinine Ratio 14.9 Glucose 107 H Calcium 8.9 Urine Opiates Screen NEGATIVE Urine Methadone Screen NEGATIVE Ur Barbiturates Screen NEGATIVE Ur Phencyclidine Scrn NEGATIVE Ur Amphetamines Screen NEGATIVE MDMA (Ecstasy) Screen NEGATIVE U Benzodiazepines Scrn NEGATIVE Urine Cocaine Screen NEGATIVE U Cannabinoids Screen NEGATIVE Ur Drug Screen Comment Ethyl Alcohol 4.0 Discharge Plan Triage Chief Complaint: Headache ED Provider: Rao Davis Dx/Rx/DC Orders Prescriptions: No Action NK Primary Care Provider: Brandie Rico NP Referrals: Brandie Rico NP, TECHNICAL RESEARCH SCIENTIST-C [Primary Care Provider] -
[2023-07-12] MEDS: Acetaminophen 500 MG Tablet 1000 MG PO (18:23)
[2023-07-12 18:41] LABS: Absolute Lymphocyte Count 1.35 X10^3/uL (0.83-4.51); Absolute Neutrophil Count 2.5 X10^3/uL (2.0-7.7); Basophil# 0.02 X10^3/uL; Basophil% 0.5 % (0-1); Eosinophil# 0.02 X10^3/uL; Eosinophils% 0.5 % (0-5); Hematocrit 46.5 % (40-54); Lymphocyte # 1.35 X10^3/ul (0.83-4.51); Lymphocyte % 31.2 % (19-41); Mean Corp Hgb Conc 32.3 g/dL (32-36); Mean Corpuscular Hgb 27.4 pg (27.0-32.0); Mean Corpuscular Volume 84.9 fL (80-94); Mean Platelet Vol. 11.5 fl (6.2-12.0); Monocyte# 0.46 X10^3/uL; Monocyte% 10.6 % (0-10); NRBC Flagged by Analyzer 0 % (0-5); Neutrophil # 2.47 X10^3/uL (2.7-7.7); Platelet Count 109 K/mm3 (150-450); RBC Distribution Width CV 13.9 % (11.6-14.6); RBC Distribution Width SD 43.3 fl (35.1-43.9); Red Blood Count 5.48 M/mm3 (4.6-6.2); White Blood Count 4.3 K/mm3 (4.4-11.0)
[2023-07-12 18:51] LABS: Anion Gap 4 (5-15); BUN 15 mg/dL (7-18); BUN/Creat Ratio 14.9 RATIO (10-20); Calcium,Total 8.9 mg/dL (8.5-10.1); Chloride 109 mmol/L (98-107); Creatinine, Serum 1.01 mg/dL (0.70-1.30); EST Glomerular Filtration Rate 97 mL/min (>60); Est Glom Filt Rate - Afr Amer 117 mL/min (>60); Estimated Creatinine Clearance 111.18 ml/min; Glucose 107 mg/dL (74-106); Potassium 3.5 mmol/L (3.5-5.1); Sodium Level 140 mmol/L (136-145)
[2023-07-12 19:00] VITALS: RESP 19
[2023-07-12 19:40] LABS: Amphetamine Urine VISTA NEGATIVE (<1000 ng/mL); Barbiturate Urine VISTA NEGATIVE (< 200 ng/mL); Benzodiazepine Urine VISTA NEGATIVE (< 200 ng/mL); Cocaine Urine VISTA NEGATIVE (< 300 ng/mL); Ecstacy Urine VISTA NEGATIVE (< 500 ng/mL); Methadone Urine VISTA NEGATIVE (< 300 ng/mL); PCP Urine VISTA NEGATIVE (< 25 ng/mL); THC Urine VISTA NEGATIVE (< 50 ng/mL); Vista UDS pH Range 6
--- NOTE | 2023-07-12 20:45 | ED.RN ---
CALLED CRISIS TO MAKE THEM AWARE PT WILL NEED EVALUATED. FAXED [facility].
[2023-07-12 21:00] VITALS: RESP 20
--- NOTE | 2023-07-12 22:09 | ED.RN ---
suicide precautions dc'd prior to this rn's shift.
[2023-07-12 23:03] VITALS: BP 134/78; PULSE 68; RESP 12; O2SAT 98
[2023-07-12] MEDS: Ziprasidone IM 20 MG/ML VIAL IM (23:59)
--- NOTE | 2023-07-12 23:59 | ED.RN ---
PATIENTS MOTHER AT NURSES STATION. SHE STATES THAT HER SON IN GETTING INCREASINGLY AGITATED AND ATTEMPTED TO STICK HIS FINGER IN THE ELECTRICAL SOCKET. DR. ABEL NOTIFIED. 20MG OF GEODON ORDER AND ADMINISTERED IN PATIENTS RIGHT DELTOID. PATIENT TOLERATED WELL. MOTHER AND GRANDMOTHER AT BEDSIDE.
--- NOTE | 2023-07-12 23:59 | ED.RN ---
[facility].
--- NOTE | 2023-07-13 01:15 | ED.RN ---
PT ACCEPT[id number]
[2023-07-13 03:13] VITALS: BP 135/84; PULSE 99; RESP 18; O2SAT 97
[2023-07-13 06:41] VITALS: BP 113/75; PULSE 88; RESP 16; TEMP 36.9; O2SAT 96
--- NOTE | 2023-07-13 06:56 | ED.RN ---
Mother called to get an update on acceptance. This RN informed her of his acceptance at [facility]. Mother's response was oh my goodness, okay and hung up.
--- NOTE | 2023-07-13 07:00 | ED.RN ---
The mother called back and is requesting him to be placed in [place]. This RN gave the mother crisis phone number so she can talk to them about possible placement. The mother asked if she could remove him from the hospital and transport him but this RN educated her on the process and that it was not possible.
[2023-07-13 08:00] VITALS: RESP 16
[2023-07-13 09:00] VITALS: RESP 16
[2023-07-13 10:00] VITALS: RESP 16
--- NOTE | 2023-07-13 10:14 | ED.RN ---
CALLED [facility] TO GET AN UPDATED ETA. DISPATCH STATED THEY ARE IN ROUTE AND 30-45 MIN AWAY. NEW ETA IS [id number]
== END 2023-07-13 10:57 ==
PROVIDERS: Emergency Provider Student in an Organized Health Care Education/Training Program; PCP Internal Medicine; Visit Provider Student in an Organized Health Care Education/Training Program
DX: F20.9 Schizophrenia, unspecified (principal); R51.9 Headache, unspecified; Z79.899 Other long term (current) drug therapy
CPT/HCPCS: 80048; 80307; 80320; 85025; 87631; 96372; 99285; G0480; J3486